=== PATIENT | female | born 1935 | race Caucasian/White ===

== ENCOUNTER 2016-12-13 19:18 | Inpatient (IN) | payer MEDICARE, MEDICAID ==
[2016-12-13] MEDS ORDERED: HEPARIN SOD (PORCINE) 1,000 UNIT/ML 10 ML VIAL IV PRN (19:50)
[2016-12-13] MEDS ORDERED: ACETAMINOPHEN 325 MG TABLET PO PRN ×2 (20:20→20:32)
[2016-12-13 20:26] LABS: HEMATOCRIT 31.2 % (36.0-47.0); HEMOGLOBIN 10.8 g/dL (12.0-15.5); HGB HCT DIFFERENCE 1.2; MEAN CORPUSCULAR HEMOGLOBIN 31.9 pg (27.0-33.4); MEAN CORPUSCULAR HGB CONC 34.5 g/dL (32.0-36.0); MEAN CORPUSCULAR VOLUME 93 fl (80-97); RED BLOOD COUNT 3.37 10^6/uL (3.72-5.28); RED CELL DISTRIBUTION WIDTH 15.9 % (11.5-14.0); WHITE BLOOD COUNT 4.5 10^3/uL (4.0-10.5)
[2016-12-13 20:38] LABS: PROTHROMBIN TIME 13.9 SEC (11.4-15.4)
[2016-12-13 20:39] LABS: PARTIAL THROMBOPLASTIN TIME 30.8 SEC (23.5-35.8)
[2016-12-13 20:46] LABS: ALANINE AMINOTRANSFERASE 28 U/L (9-52); ALBUMIN 3.6 g/dL (3.5-5.0); ALKALINE PHOSPHATASE 192 U/L (38-126); ANION GAP 16 (5-19); ASPARTATE AMINO TRANSFERASE 21 U/L (14-36); BILIRUBIN,TOTAL 0.4 mg/dL (0.2-1.3); BLOOD UREA NITROGEN 63 mg/dL (7-20); CALCIUM 8.9 mg/dL (8.4-10.2); CARBON DIOXIDE 23 mmol/L (22-30); CHLORIDE 98 mmol/L (98-107); CREATININE RESULT 3.86 mg/dL (0.52-1.25); GLUCOSE 196 mg/dL (75-110); SODIUM 136.6 mmol/L (137-145); TOTAL PROTEIN 6.2 g/dL (6.3-8.2)
[2016-12-13] MEDS: HEPARIN SODIUM,PORCINE/D5W 25,000 UNIT/250 ML RTUINJ IV PRN (21:02)
[2016-12-13] MEDS ORDERED: (PENDING PHARMACY ID) (Donepezil Hcl [Aricept] 10 MG) PO SCH (22:00)
[2016-12-13] MEDS ORDERED: (PENDING PHARMACY ID) (Melatonin [Melatin] 3 MG) PO SCH (22:00)
[2016-12-13] MEDS: MEMANTINE HCL 10 MG TABLET PO SCH (23:00)
[2016-12-13] MEDS: CLONIDINE HCL 0.1 MG TABLET PO SCH (23:01)
[2016-12-13] MEDS: DONEPEZIL HCL 5 MG TABLET PO SCH (23:01)
[2016-12-13] MEDS: ZOLPIDEM TARTRATE 5 MG TABLET PO SCH (23:02)
[2016-12-13] MEDS: QUETIAPINE FUMARATE 25 MG TABLET PO SCH (23:03)
[2016-12-14 03:17] LABS: ABSOLUTE EOSINOPHILS # (AUTO) 0.1 10^3/uL (0.0-0.6); ABSOLUTE LYMPHOCYTES (AUTO) 1.8 10^3/uL (0.5-4.7); ABSOLUTE MONOCYTES (AUTO) 0.4 10^3/uL (0.1-1.4); ABSOLUTE NEUT (AUTO) 2.3 10^3/uL (1.7-8.2); BASOPHILS % (AUTO) 0.6 % (0-2); EOSINOPHILS % (AUTO) 2.8 % (0-6); HEMATOCRIT 30.3 % (36.0-47.0); HEMOGLOBIN 10.4 g/dL (12.0-15.5); HGB HCT DIFFERENCE 0.9; LYMPHOCYTES % (AUTO) 38.6 % (13-45); MEAN CORPUSCULAR HEMOGLOBIN 32.2 pg (27.0-33.4); MEAN CORPUSCULAR HGB CONC 34.4 g/dL (32.0-36.0); MEAN CORPUSCULAR VOLUME 93 fl (80-97); MONOCYTES % (AUTO) 8.1 % (3-13); RED BLOOD COUNT 3.24 10^6/uL (3.72-5.28); RED CELL DISTRIBUTION WIDTH 15.8 % (11.5-14.0); SEGMENTED NEUTROPHILS % (AUTO) 49.9 % (42-78); WHITE BLOOD COUNT 4.7 10^3/uL (4.0-10.5)
[2016-12-14 03:31] LABS: ANION GAP 13 (5-19); BLOOD UREA NITROGEN 65 mg/dL (7-20); CALCIUM 8.8 mg/dL (8.4-10.2); CARBON DIOXIDE 23 mmol/L (22-30); CHLORIDE 101 mmol/L (98-107); CREATININE RESULT 3.75 mg/dL (0.52-1.25); GLUCOSE 113 mg/dL (75-110); POTASSIUM 3.9 mmol/L (3.6-5.0); SODIUM 136.7 mmol/L (137-145)
[2016-12-14] MEDS ORDERED: LORATADINE 10 MG TABLET PO PRN (05:54)
[2016-12-14] MEDS ORDERED: DEXTROSE 40% GEL 15 GM TUBE PO PRN (06:02)
[2016-12-14] MEDS ORDERED: DEXTROSE 50%-WATER SYRINGE 12.5 GM/25 ML DOSE IV PRN (06:02)
[2016-12-14] MEDS ORDERED: DEXTROSE 50%-WATER SYRINGE 25 GM/50 ML DOSE IV PRN (06:02)
[2016-12-14] MEDS ORDERED: DEXTROSE 40% GEL 15 GM TUBE X 2 PO PRN (06:02)
[2016-12-14] MEDS ORDERED: GLUCAGON,HUMAN RECOMB 1 MG INJ IM PRN (06:02)
[2016-12-14] MEDS ORDERED: INSULIN LISPRO 100 UNIT/ML 3 ML VIAL SUBCUT PRN (06:02)
[2016-12-14] MEDS ORDERED: INSULIN REG, HUMAN 100 UNIT/ML 3 ML VIAL (PYX) SUBCUT PRN (06:04)
[2016-12-14] MEDS ORDERED: ONDANSETRON 4 MG TAB.RAPDIS PO PRN (06:36)
[2016-12-14] MEDS ORDERED: NITROGLYCERIN 0.4 MG/TAB 25 TAB/BOTTLE SL PRN (06:36)
[2016-12-14] MEDS: CLONIDINE HCL 0.1 MG TABLET PO SCH ×3 (06:43→21:50)
[2016-12-14] MEDS ORDERED: (PENDING PHARMACY ID) (Sevelamer Carbonate [Renvela] 1,600 MG) PO SCH (08:00)
[2016-12-14] MEDS ORDERED: INSULIN GLARGINE,HUM.REC.ANLOG 300 UNIT/3 ML INSULN.PEN SUBCUT SCH (10:00)
[2016-12-14] MEDS ORDERED: (PENDING PHARMACY ID) (Ropinirole Hcl [Requip] 0.5 MG) PO SCH (10:00)
[2016-12-14] MEDS: DOCUSATE SODIUM 100 MG CAPSULE PO SCH (12:12)
[2016-12-14] MEDS: MEMANTINE HCL 10 MG TABLET PO SCH ×2 (12:12→21:46)
[2016-12-14] MEDS: ROPINIROLE HCL 0.25 MG TABLET PO SCH (12:13)
[2016-12-14] MEDS: DULOXETINE HCL 30 MG CAPSULE.DR PO SCH (12:13)
[2016-12-14] MEDS: AMLODIPINE BESYLATE 5 MG TABLET PO SCH ×2 (12:13→21:46)
[2016-12-14] MEDS: ASPIRIN 81 MG TABLET, CHEWABLE PO SCH (12:13)
[2016-12-14] MEDS: CINACALCET HCL 30 MG TABLET PO SCH (12:13)
[2016-12-14] MEDS: SEVELAMER HCL 400 MG TABLET PO SCH ×3 (12:14→17:00)
[2016-12-14] MEDS: INSULIN GLARGINE,HUM.REC.ANLOG 300 UNIT/3 ML INSULN.PEN SUBCUT SCH (12:14)
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
--- NOTE | 2016-12-14 20:42 | PDOC PROGRESS REPORT ---
Subjective Progress Note for:: 12/14/16 Subjective:: Patient was admitted for deep vein thrombosis of the left lower extremities, she had hemodialysis today Physical Exam Vital Signs: Temp Pulse Resp BP Pulse Ox 97.4 F 69 16 144/61 H 98 12/14/16 12:00 12/14/16 14:00 12/14/16 12:00 12/14/16 12:00 12/14/16 12:00 Intake & Output 12/13/16 12/14/16 12/15/16 06:59 06:59 06:59 Intake Total 202 685 Balance 202 685 Weight 62.8 kg General appearance: PRESENT: no acute distress, well-developed, well-nourished Head exam: PRESENT: atraumatic, normocephalic Eye exam: PRESENT: conjunctiva pink, EOMI, PERRLA Ear exam: PRESENT: normal external ear exam Mouth exam: PRESENT: moist, tongue midline Neck exam: PRESENT: full ROM Respiratory exam: PRESENT: clear to auscultation korina Cardiovascular exam: PRESENT: RRR, +S1, +S2 Pulses: PRESENT: normal dorsalis pedis pul, +2 pedal pulses bilateral Vascular exam: PRESENT: normal capillary refill GI/Abdominal exam: PRESENT: normal bowel sounds, soft Rectal exam: PRESENT: deferred Neurological exam: PRESENT: alert, awake, oriented to person, oriented to place , oriented to time, oriented to situation, CN II-XII grossly intact Psychiatric exam: PRESENT: appropriate affect, normal mood Skin exam: PRESENT: dry, intact, warm Results Laboratory Results: 12/14/16 03:09 12/14/16 03:09 12/13/16 12/14/16 12/14/16 20:12 03:09 03:09 WBC 4.7 RBC 3.24 L Hgb 10.4 L Hct 30.3 L MCV 93 MCH 32.2 MCHC 34.4 RDW 15.8 H Plt Count 134 L Seg Neutrophils % 49.9 Lymphocytes % 38.6 Monocytes % 8.1 Eosinophils % 2.8 Basophils % 0.6 Absolute Neutrophils 2.3 Absolute Lymphocytes 1.8 Absolute Monocytes 0.4 Absolute Eosinophils 0.1 Absolute Basophils 0.0 Sodium 136.6 L 136.7 L Potassium 4.0 3.9 Chloride 98 101 Carbon Dioxide 23 23 Anion Gap 16 13 BUN 63 H 65 H Creatinine 3.86 H 3.75 H Est GFR ( Amer) 14 L 14 L Est GFR (Non-Af Amer) 11 L 12 L Glucose 196 H 113 H Calcium 8.9 8.8 Total Bilirubin 0.4 AST 21 ALT 28 Alkaline Phosphatase 192 H Total Protein 6.2 L Albumin 3.6 Assessment & Plan - Diagnosis (1) Acute deep vein thrombosis (DVT) of left femoral vein Is this a current diagnosis for this admission?: YesPlan: She will be started on warfarin on the heparin will be discontinued once the INR is therapeutic (2) Acute deep vein thrombosis (DVT) of left lower extremity Qualifiers: Affected thrombotic vein of extremity: femoral Qualified Code(s): I82.412 - Acute embolism and thrombosis of left femoral vein Is this a current diagnosis for this admission?: Yes (3) Diabetes mellitus type II, controlled Qualifiers: Diabetes mellitus complication status: with kidney complications Diabetes mellitus complication detail: with chronic kidney disease Diabetes mellitus intermediate insulin use: without communication specialist use Chronic kidney disease stage: on chronic dialysis Qualified Code(s): E11.22 - Type 2 diabetes mellitus with diabetic chronic kidney disease; N18.1 - Chronic kidney disease, stage 1; Z79.4 - [facility] (current) use of insulin Is this a current diagnosis for this admission?: Yes (4) End stage renal disease Is this a current diagnosis for this admission?: Yes
[2016-12-14 21:21] LABS: PROTHROMBIN TIME 13.9 SEC (11.4-15.4)
[2016-12-14] MEDS: QUETIAPINE FUMARATE 25 MG TABLET PO SCH (21:46)
[2016-12-14] MEDS: DONEPEZIL HCL 5 MG TABLET PO SCH (21:46)
[2016-12-14] MEDS: ACETAMINOPHEN 325 MG TABLET PO PRN (21:47)
[2016-12-14] MEDS: ZOLPIDEM TARTRATE 5 MG TABLET PO SCH (21:47)
[2016-12-14] MEDS: WARFARIN SODIUM 5 MG TABLET PO SCH (21:50)
[2016-12-14] MEDS: HEPARIN SODIUM,PORCINE/D5W 25,000 UNIT/250 ML RTUINJ IV PRN (23:43)
[2016-12-15 04:49] LABS: HEMATOCRIT 30.8 % (36.0-47.0); HEMOGLOBIN 10.7 g/dL (12.0-15.5); HGB HCT DIFFERENCE 1.3; MEAN CORPUSCULAR HEMOGLOBIN 32.2 pg (27.0-33.4); MEAN CORPUSCULAR HGB CONC 34.8 g/dL (32.0-36.0); MEAN CORPUSCULAR VOLUME 93 fl (80-97); RED BLOOD COUNT 3.33 10^6/uL (3.72-5.28); RED CELL DISTRIBUTION WIDTH 15.7 % (11.5-14.0); WHITE BLOOD COUNT 5.1 10^3/uL (4.0-10.5)
[2016-12-15 05:03] LABS: PROTHROMBIN TIME 14.4 SEC (11.4-15.4)
[2016-12-15 05:05] LABS: PARTIAL THROMBOPLASTIN TIME 71.8 SEC (23.5-35.8)
[2016-12-15] MEDS: CLONIDINE HCL 0.1 MG TABLET PO SCH ×3 (06:28→22:54)
[2016-12-15] MEDS: AMLODIPINE BESYLATE 5 MG TABLET PO SCH ×2 (09:25→22:54)
[2016-12-15] MEDS: CINACALCET HCL 30 MG TABLET PO SCH (09:25)
[2016-12-15] MEDS: ASPIRIN 81 MG TABLET, CHEWABLE PO SCH (09:26)
[2016-12-15] MEDS: DOCUSATE SODIUM 100 MG CAPSULE PO SCH (09:26)
[2016-12-15] MEDS: SEVELAMER HCL 400 MG TABLET PO SCH ×3 (09:26→16:33)
[2016-12-15] MEDS: DULOXETINE HCL 30 MG CAPSULE.DR PO SCH (09:27)
[2016-12-15] MEDS: ROPINIROLE HCL 0.25 MG TABLET PO SCH (09:27)
[2016-12-15] MEDS: MEMANTINE HCL 10 MG TABLET PO SCH ×2 (09:27→22:53)
[2016-12-15] MEDS: INSULIN GLARGINE,HUM.REC.ANLOG 300 UNIT/3 ML INSULN.PEN SUBCUT SCH (09:31)
--- NOTE | 2016-12-15 14:35 | PDOC PROGRESS REPORT ---
Subjective Progress Note for:: 12/15/16 Subjective:: No chest pain or difficulty with breathing. Remain on anticoagulation therapy for DVT. Last hemodialysis was yesterday. She denied any significant pain in left leg. She denied any nausea, vomiting or abdominal pain. Tolerating oral feeding. No reported fever or chills. Physical Exam Vital Signs: Temp Pulse Resp BP Pulse Ox 97.9 F 78 16 153/67 H 98 12/15/16 11:33 12/15/16 13:58 12/15/16 11:33 12/15/16 11:33 12/15/16 11:33 Intake & Output 12/14/16 12/15/16 12/16/16 06:59 06:59 07:59 Intake Total 202 1044 Output Total 1300 Balance 202 -256 Weight 62.8 kg 60.3 kg Physical Exam: General appearance: PRESENT: no acute distress, well-developed, well-nourished Head exam: PRESENT: atraumatic, normocephalic Eye exam: PRESENT: conjunctiva pink, EOMI, PERRLA Ear exam: PRESENT: normal external ear exam Mouth exam: PRESENT: moist, tongue midline Neck exam: PRESENT: full ROM Respiratory exam: PRESENT: clear to auscultation korina Cardiovascular exam: PRESENT: RRR, +S1, +S2 Pulses: PRESENT: normal dorsalis pedis pul, +2 pedal pulses bilateral Vascular exam: PRESENT: normal capillary refill GI/Abdominal exam: PRESENT: normal bowel sounds, soft Neurological exam: PRESENT: alert, awake, oriented to person, oriented to place , oriented to time, oriented to situation, CN II-XII grossly intact Psychiatric exam: PRESENT: appropriate affect, normal mood Skin exam: PRESENT: dry, intact, warm Results Laboratory Results: 12/15/16 04:08 12/14/16 03:09 12/15/16 04:08 WBC 5.1 RBC 3.33 L Hgb 10.7 L Hct 30.8 L MCV 93 MCH 32.2 MCHC 34.8 RDW 15.7 H Plt Count 139 L Assessment & Plan - Diagnosis (1) Acute deep vein thrombosis (DVT) of left lower extremity Qualifiers: Affected thrombotic vein of extremity: femoral Qualified Code(s): I82.412 - Acute embolism and thrombosis of left femoral vein Is this a current diagnosis for this admission?: YesPlan: See covering attending orders. (2) Anemia in chronic kidney disease (CKD) Is this a current diagnosis for this admission?: YesPlan: See covering attending orders. (3) Hypertension Qualifiers: Hypertension type: essential hypertension Qualified Code(s): I10 - Essential (primary) hypertension Is this a current diagnosis for this admission?: YesPlan: See covering attending orders. (4) Diabetes mellitus type II, controlled Qualifiers: Diabetes mellitus complication status: with kidney complications Diabetes mellitus complication detail: with chronic kidney disease Diabetes mellitus senior living insulin use: without marine oil terminal superintendent use Chronic kidney disease stage: on chronic dialysis Qualified Code(s): E11.22 - Type 2 diabetes mellitus with diabetic chronic kidney disease; N18.1 - Chronic kidney disease, stage 1; Z79.4 - laborer marine terminal (current) use of insulin Is this a current diagnosis for this admission?: YesPlan: See covering attending orders. (5) End stage renal disease Is this a current diagnosis for this admission?: YesPlan: See covering attending orders. - Time Time Spent with patient: 25-34 minutes Anticipated discharge: SNF - for possible short term rehabilitation. - Inpatient Certification Based on my medical assessment, after consideration of the patient's comorbidities, presenting symptoms, or acuity I expect that the services needed warrant INPATIENT care.: Yes I certify that my determination is in accordance with my understanding of Medicare's requirements for reasonable and necessary INPATIENT services [42 CFR 412.3e].: Yes Medical Necessity: Need Close Monitoring Due to Risk of Patient Decompensation, Need For Continuous Telemetry Monitoring, Risk of Diagnosis Which Will Require Inpatient Eval/Care/Monitoring Post Hospital Care: D/C or Transfer Summary - Plan Summary Plan Summary: Continue current anticoagulation therapy with intent to discontinue IV heparin when INR is > 2.5. Maintain on all other current medical management.
[2016-12-15] MEDS: ZOLPIDEM TARTRATE 5 MG TABLET PO SCH (22:53)
[2016-12-15] MEDS: WARFARIN SODIUM 5 MG TABLET PO SCH (22:53)
[2016-12-15] MEDS: DONEPEZIL HCL 5 MG TABLET PO SCH (22:53)
[2016-12-15] MEDS: QUETIAPINE FUMARATE 25 MG TABLET PO SCH (22:53)
[2016-12-15] MEDS: HEPARIN SODIUM,PORCINE/D5W 25,000 UNIT/250 ML RTUINJ IV PRN (23:05)
[2016-12-16 05:34] LABS: PARTIAL THROMBOPLASTIN TIME 79.9 SEC (23.5-35.8)
[2016-12-16 05:39] LABS: PROTHROMBIN TIME 14.7 SEC (11.4-15.4)
[2016-12-16] MEDS: CLONIDINE HCL 0.1 MG TABLET PO SCH ×3 (06:16→22:52)
[2016-12-16] MEDS: MEMANTINE HCL 10 MG TABLET PO SCH ×2 (09:40→22:52)
[2016-12-16] MEDS: ROPINIROLE HCL 0.25 MG TABLET PO SCH (09:40)
[2016-12-16] MEDS: SEVELAMER HCL 400 MG TABLET PO SCH ×3 (09:40→17:38)
[2016-12-16] MEDS: AMLODIPINE BESYLATE 5 MG TABLET PO SCH ×2 (09:41→22:52)
[2016-12-16] MEDS: ASPIRIN 81 MG TABLET, CHEWABLE PO SCH (09:41)
[2016-12-16] MEDS: DULOXETINE HCL 30 MG CAPSULE.DR PO SCH (09:41)
[2016-12-16] MEDS: CINACALCET HCL 30 MG TABLET PO SCH (09:41)
[2016-12-16] MEDS: INSULIN GLARGINE,HUM.REC.ANLOG 300 UNIT/3 ML INSULN.PEN SUBCUT SCH (09:44)
[2016-12-16] MEDS: DOCUSATE SODIUM 100 MG CAPSULE PO SCH (09:51)
--- NOTE | 2016-12-16 11:06 | PDOC PROGRESS REPORT ---
Subjective Progress Note for:: 12/16/16 Subjective:: No chest pain or difficulty with breathing. Remain on IV heparin and oral Coumadin bridge anticoagulation therapy for DVT. She denied any significant pain in left leg. INR remain subtherapeutic presently. No abnormal bleeding. She denied any nausea, vomiting or abdominal pain. Tolerating oral feeding. No reported fever or chills. Physical Exam Vital Signs: Temp Pulse Resp BP Pulse Ox 98.0 F 64 18 125/63 99 12/16/16 07:32 12/16/16 07:32 12/16/16 07:32 12/16/16 07:32 12/16/16 07:32 Intake & Output 12/15/16 12/16/16 12/17/16 05:59 06:59 06:59 Intake Total Output Total Balance Weight Physical Exam: General appearance: PRESENT: no acute distress, well-developed, well-nourished Head exam: PRESENT: atraumatic, normocephalic Eye exam: PRESENT: conjunctiva pink, EOMI, PERRLA Ear exam: PRESENT: normal external ear exam Mouth exam: PRESENT: moist, tongue midline Neck exam: PRESENT: full ROM Respiratory exam: PRESENT: clear to auscultation korina Cardiovascular exam: PRESENT: RRR, +S1, +S2 Pulses: PRESENT: normal dorsalis pedis pul, +2 pedal pulses bilateral Vascular exam: PRESENT: normal capillary refill GI/Abdominal exam: PRESENT: normal bowel sounds, soft Neurological exam: PRESENT: alert, awake, oriented to person, oriented to place , oriented to time, oriented to situation, CN II-XII grossly intact Psychiatric exam: PRESENT: appropriate affect, normal mood Skin exam: PRESENT: dry, intact, warm Results Laboratory Results: 12/15/16 04:08 12/14/16 03:09 Assessment & Plan - Diagnosis (1) Acute deep vein thrombosis (DVT) of left lower extremity Qualifiers: Affected thrombotic vein of extremity: femoral Qualified Code(s): I82.412 - Acute embolism and thrombosis of left femoral vein Is this a current diagnosis for this admission?: YesPlan: See covering attending orders. Give Coumadin 10mg tonight. Maintain on other current medication management. (2) Anemia in chronic kidney disease (CKD) Is this a current diagnosis for this admission?: YesPlan: See covering attending physician orders. (3) Hypertension Qualifiers: Hypertension type: essential hypertension Qualified Code(s): I10 - Essential (primary) hypertension Is this a current diagnosis for this admission?: YesPlan: See covering attending physician orders. (4) Diabetes mellitus type II, controlled Qualifiers: Diabetes mellitus complication status: with kidney complications Diabetes mellitus complication detail: with chronic kidney disease Diabetes mellitus skilled nursing insulin use: without termite control service representative use Chronic kidney disease stage: on chronic dialysis Qualified Code(s): E11.22 - Type 2 diabetes mellitus with diabetic chronic kidney disease; N18.1 - Chronic kidney disease, stage 1; Z79.4 - [facility] (current) use of insulin Is this a current diagnosis for this admission?: YesPlan: See covering attending physician orders. (5) End stage renal disease Is this a current diagnosis for this admission?: YesPlan: See covering attending physician orders. - Time Time Spent with patient: 25-34 minutes Medications reviewed and adjusted accordingly: Yes Within: Other - Inpatient Certification Based on my medical assessment, after consideration of the patient's comorbidities, presenting symptoms, or acuity I expect that the services needed warrant INPATIENT care.: Yes I certify that my determination is in accordance with my understanding of Medicare's requirements for reasonable and necessary INPATIENT services [42 CFR 412.3e].: Yes Medical Necessity: Need Close Monitoring Due to Risk of Patient Decompensation, Need For Continuous Telemetry Monitoring, Risk of Complication if Not Cared For in Hospital Post Hospital Care: D/C Hosp[facility] Music Therapy Documentation - Plan Summary Plan Summary: See covering attending physician orders.
[2016-12-16] MEDS: GUAIFENESIN SYRP 200 MG/10 ML UDC PO PRN (19:43)
[2016-12-16] MEDS ORDERED: WARFARIN SODIUM 5 MG TABLET PO ONE (22:00)
[2016-12-16] MEDS: DONEPEZIL HCL 5 MG TABLET PO SCH (22:52)
[2016-12-16] MEDS: ZOLPIDEM TARTRATE 5 MG TABLET PO SCH (22:52)
[2016-12-16] MEDS: WARFARIN SODIUM 5 MG TABLET PO SCH (22:52)
[2016-12-16] MEDS: QUETIAPINE FUMARATE 25 MG TABLET PO SCH (22:52)
[2016-12-17] MEDS: GUAIFENESIN SYRP 200 MG/10 ML UDC PO PRN (04:02)
[2016-12-17] MEDS: HEPARIN SODIUM,PORCINE/D5W 25,000 UNIT/250 ML RTUINJ IV PRN (04:37)
[2016-12-17 05:09] LABS: ABSOLUTE EOSINOPHILS # (AUTO) 0.1 10^3/uL (0.0-0.6); ABSOLUTE LYMPHOCYTES (AUTO) 0.8 10^3/uL (0.5-4.7); ABSOLUTE MONOCYTES (AUTO) 0.4 10^3/uL (0.1-1.4); ABSOLUTE NEUT (AUTO) 3.1 10^3/uL (1.7-8.2); BASOPHILS % (AUTO) 0.5 % (0-2); EOSINOPHILS % (AUTO) 2.1 % (0-6); HEMATOCRIT 36.2 % (36.0-47.0); HEMOGLOBIN 12.2 g/dL (12.0-15.5); HGB HCT DIFFERENCE 0.4; MEAN CORPUSCULAR HEMOGLOBIN 31.3 pg (27.0-33.4); MEAN CORPUSCULAR HGB CONC 33.5 g/dL (32.0-36.0); MEAN CORPUSCULAR VOLUME 93 fl (80-97); MONOCYTES % (AUTO) 9.6 % (3-13); PARTIAL THROMBOPLASTIN TIME 82.5 SEC (23.5-35.8); RED BLOOD COUNT 3.89 10^6/uL (3.72-5.28); SEGMENTED NEUTROPHILS % (AUTO) 70.8 % (42-78); WHITE BLOOD COUNT 4.4 10^3/uL (4.0-10.5)
[2016-12-17 05:22] LABS: ANION GAP 15 (5-19); BLOOD UREA NITROGEN 69 mg/dL (7-20); CALCIUM 9.2 mg/dL (8.4-10.2); CARBON DIOXIDE 20 mmol/L (22-30); CHLORIDE 102 mmol/L (98-107); CREATININE RESULT 4.67 mg/dL (0.52-1.25); GLUCOSE 102 mg/dL (75-110); POTASSIUM 5.2 mmol/L (3.6-5.0); SODIUM 137.4 mmol/L (137-145)
[2016-12-17] MEDS: CLONIDINE HCL 0.1 MG TABLET PO SCH ×3 (06:12→21:48)
[2016-12-17] MEDS: SEVELAMER HCL 400 MG TABLET PO SCH ×3 (07:48→16:57)
[2016-12-17] MEDS: MEMANTINE HCL 10 MG TABLET PO SCH ×2 (12:18→21:48)
[2016-12-17] MEDS: CINACALCET HCL 30 MG TABLET PO SCH (12:18)
[2016-12-17] MEDS: ROPINIROLE HCL 0.25 MG TABLET PO SCH (12:18)
[2016-12-17] MEDS: DOCUSATE SODIUM 100 MG CAPSULE PO SCH (12:18)
[2016-12-17] MEDS: ASPIRIN 81 MG TABLET, CHEWABLE PO SCH (12:18)
[2016-12-17] MEDS: INSULIN GLARGINE,HUM.REC.ANLOG 300 UNIT/3 ML INSULN.PEN SUBCUT SCH (12:18)
[2016-12-17] MEDS: AMLODIPINE BESYLATE 5 MG TABLET PO SCH ×2 (12:18→21:48)
[2016-12-17] MEDS: DULOXETINE HCL 30 MG CAPSULE.DR PO SCH (12:18)
--- NOTE | 2016-12-17 12:59 | PDOC PROGRESS REPORT ---
Subjective Progress Note for:: 12/17/16 Subjective:: I saw the patient on dialysis at this time. She is doing well and comfortable. She does not complain of any any issues. Her leg swelling is almost resolved. She is is still on heparin drip awaiting therapeutic PT/INR for the Coumadin. Physical Exam Vital Signs: Temp Pulse Resp BP Pulse Ox 98.1 F 75 16 137/55 H 97 12/17/16 11:15 12/17/16 11:15 12/17/16 11:15 12/17/16 11:15 12/17/16 11:15 Intake & Output 12/16/16 12/17/16 12/18/16 06:59 06:59 06:59 Intake Total 1574 Balance 1574 Weight 66.8 kg Vitals during dialysis: Blood pressure 142/72, heart rate of 83, blood flow 400 , on systemic heparin, temperature 98.4 and ultrafiltration set to 2-3 L. Exam: General appearance: PRESENT: no acute distress, cooperative, well-developed, well-nourished Head exam: PRESENT: atraumatic, normocephalic Eye exam: PRESENT: conjunctiva pink, PERRLA. ABSENT: scleral icterus Neck exam: ABSENT: JVD Respiratory exam: PRESENT: Normal breath sounds. ABSENT: crackles, rales, rhonchi, unlabored, wheezes Cardiovascular exam: PRESENT: Regular rate rhythm -+S1, +S2. Grade 3/6 systolic ejection murmur ABSENT: diastolic murmur GI/Abdominal exam: PRESENT: normal bowel sounds, soft. ABSENT: guarding, mass, tenderness Extremities exam: ABSENT: No edema Neurological exam: PRESENT: alert, awake, oriented to person, place and time. Skin exam: PRESENT: dry, warm, Results Laboratory Results: 12/17/16 04:20 12/17/16 04:20 12/17/16 12/17/16 04:20 04:20 WBC 4.4 RBC 3.89 Hgb 12.2 Hct 36.2 MCV 93 MCH 31.3 MCHC 33.5 RDW 16.0 H Plt Count 118 L Seg Neutrophils % 70.8 Lymphocytes % 17.0 Monocytes % 9.6 Eosinophils % 2.1 Basophils % 0.5 Absolute Neutrophils 3.1 Absolute Lymphocytes 0.8 Absolute Monocytes 0.4 Absolute Eosinophils 0.1 Absolute Basophils 0.0 Sodium 137.4 Potassium 5.2 H Chloride 102 Carbon Dioxide 20 L Anion Gap 15 BUN 69 H Creatinine 4.67 H Est GFR ( Amer) 11 L Est GFR (Non-Af Amer) 9 L Glucose 102 Calcium 9.2 Assessment & Plan - Diagnosis (1) End stage renal disease Is this a current diagnosis for this admission?: YesPlan: We will do dialysis today for 3 hours, using the patient's AV fistula, with 2 potassium bath, blood flow rate of 250 mL per minute, dialysate flow rate of 500 mL per minute, ultrafiltration 2-3 L as tolerated, on systemic heparin and no Procrit during dialysis. Patient will be monitored throughout the dialysis treatment. (2) Acute deep vein thrombosis (DVT) Qualifiers: DVT location: lower extremity Affected thrombotic vein of extremity: femoral Laterality: left Qualified Code(s): I82.412 - Acute embolism and thrombosis of left femoral vein Is this a current diagnosis for this admission?: YesPlan: On heparin drip awaiting the repeat a PT/INR for Coumadin. Being managed by the primary provider. (3) Anemia in chronic kidney disease (CKD) Is this a current diagnosis for this admission?: YesPlan: Well controlled. No need of Procrit at this time. (4) Hypertension Qualifiers: Hypertension type: essential hypertension Qualified Code(s): I10 - Essential (primary) hypertension Is this a current diagnosis for this admission?: YesPlan: Fairly controlled. Clinical okay - Time Time with patient: 15-25 minutes
--- NOTE | 2016-12-17 18:32 | PDOC PROGRESS REPORT ---
Subjective Progress Note for:: 12/17/16 Subjective:: She had hemodialysis today, the INR is subtherapeutic, still on continuous IV heparin Physical Exam Vital Signs: Temp Pulse Resp BP Pulse Ox 98.1 F 85 16 137/55 H 97 12/17/16 11:15 12/17/16 14:00 12/17/16 11:15 12/17/16 11:15 12/17/16 11:15 Intake & Output 12/16/16 12/17/16 12/18/16 06:59 06:59 06:59 Intake Total 1574 343 Output Total 1999 Balance 1574 -1657 Weight 66.8 kg General appearance: PRESENT: no acute distress Head exam: PRESENT: atraumatic, normocephalic Eye exam: PRESENT: conjunctiva pink, EOMI, PERRLA Neck exam: PRESENT: full ROM Cardiovascular exam: PRESENT: RRR, +S1, +S2 GI/Abdominal exam: PRESENT: normal bowel sounds, soft Rectal exam: PRESENT: deferred Neurological exam: PRESENT: alert, awake, oriented to person, oriented to place , oriented to time, oriented to situation, CN II-XII grossly intact Psychiatric exam: PRESENT: appropriate affect, normal mood Skin exam: PRESENT: dry, intact, warm Results Laboratory Results: 12/17/16 04:20 12/17/16 04:20 12/17/16 12/17/16 04:20 04:20 WBC 4.4 RBC 3.89 Hgb 12.2 Hct 36.2 MCV 93 MCH 31.3 MCHC 33.5 RDW 16.0 H Plt Count 118 L Seg Neutrophils % 70.8 Lymphocytes % 17.0 Monocytes % 9.6 Eosinophils % 2.1 Basophils % 0.5 Absolute Neutrophils 3.1 Absolute Lymphocytes 0.8 Absolute Monocytes 0.4 Absolute Eosinophils 0.1 Absolute Basophils 0.0 Sodium 137.4 Potassium 5.2 H Chloride 102 Carbon Dioxide 20 L Anion Gap 15 BUN 69 H Creatinine 4.67 H Est GFR ( Amer) 11 L Est GFR (Non-Af Amer) 9 L Glucose 102 Calcium 9.2 Assessment & Plan - Diagnosis (1) Acute deep vein thrombosis (DVT) of left femoral vein Is this a current diagnosis for this admission?: YesPlan: Continue treatment (2) Acute deep vein thrombosis (DVT) of left lower extremity Qualifiers: Affected thrombotic vein of extremity: femoral Qualified Code(s): I82.412 - Acute embolism and thrombosis of left femoral vein Is this a current diagnosis for this admission?: Yes (3) Diabetes mellitus type II, controlled Qualifiers: Diabetes mellitus complication status: with kidney complications Diabetes mellitus complication detail: with chronic kidney disease Diabetes mellitus longterm insulin use: without terminal worker use Chronic kidney disease stage: on chronic dialysis Qualified Code(s): E11.22 - Type 2 diabetes mellitus with diabetic chronic kidney disease; N18.1 - Chronic kidney disease, stage 1; Z79.4 - terminal computer operator (current) use of insulin Is this a current diagnosis for this admission?: Yes (4) End stage renal disease Is this a current diagnosis for this admission?: Yes
[2016-12-17 19:36] LABS: HEPATITIS C QUANTITATION HCV Not Detected IU/mL (.)
[2016-12-17] MEDS: DONEPEZIL HCL 5 MG TABLET PO SCH (21:48)
[2016-12-17] MEDS: WARFARIN SODIUM 5 MG TABLET PO SCH (21:49)
[2016-12-17] MEDS: ZOLPIDEM TARTRATE 5 MG TABLET PO SCH (21:49)
[2016-12-17] MEDS: QUETIAPINE FUMARATE 25 MG TABLET PO SCH (21:49)
[2016-12-18] MEDS: HEPARIN SODIUM,PORCINE/D5W 25,000 UNIT/250 ML RTUINJ IV PRN (03:59)
[2016-12-18 04:24] LABS: PROTHROMBIN TIME 20.8 SEC (11.4-15.4)
[2016-12-18] MEDS: CLONIDINE HCL 0.1 MG TABLET PO SCH ×3 (05:21→21:22)
[2016-12-18] MEDS: SEVELAMER HCL 400 MG TABLET PO SCH ×3 (08:11→17:39)
[2016-12-18] MEDS: GUAIFENESIN SYRP 200 MG/10 ML UDC PO PRN (08:14)
[2016-12-18] MEDS: ROPINIROLE HCL 0.25 MG TABLET PO SCH (09:56)
[2016-12-18] MEDS: DOCUSATE SODIUM 100 MG CAPSULE PO SCH (09:56)
[2016-12-18] MEDS: CINACALCET HCL 30 MG TABLET PO SCH (09:56)
[2016-12-18] MEDS: INSULIN GLARGINE,HUM.REC.ANLOG 300 UNIT/3 ML INSULN.PEN SUBCUT SCH (09:56)
[2016-12-18] MEDS: ASPIRIN 81 MG TABLET, CHEWABLE PO SCH (09:56)
[2016-12-18] MEDS: AMLODIPINE BESYLATE 5 MG TABLET PO SCH ×2 (09:57→21:22)
[2016-12-18] MEDS: MEMANTINE HCL 10 MG TABLET PO SCH ×2 (09:57→21:22)
[2016-12-18] MEDS: DULOXETINE HCL 30 MG CAPSULE.DR PO SCH (09:57)
--- NOTE | 2016-12-18 19:51 | PDOC PROGRESS REPORT ---
Subjective Progress Note for:: 12/25/16 Subjective:: The INR is still subtherapeutic, patient will continue IV heparin infusion Physical Exam Vital Signs: Temp Pulse Resp BP Pulse Ox 98.1 F 78 16 142/74 H 97 12/18/16 15:46 12/18/16 15:46 12/18/16 15:46 12/18/16 15:46 12/18/16 15:46 Intake & Output 12/17/16 12/18/16 12/19/16 06:59 06:59 06:59 Intake Total 1574 687 672 Output Total 1999 Balance 1574 -1312 672 Weight 66.8 kg 65 kg General appearance: PRESENT: no acute distress Eye exam: PRESENT: PERRLA Respiratory exam: PRESENT: clear to auscultation korina Cardiovascular exam: PRESENT: +S1, +S2 GI/Abdominal exam: PRESENT: soft Neurological exam: PRESENT: alert Results Laboratory Results: 12/17/16 04:20 12/17/16 04:20 12/18/16 04:10 Stool Occult Blood NEGATIVE Assessment & Plan - Diagnosis (1) Acute deep vein thrombosis (DVT) of left femoral vein Is this a current diagnosis for this admission?: Yes (2) Acute deep vein thrombosis (DVT) of left lower extremity Qualifiers: Affected thrombotic vein of extremity: femoral Qualified Code(s): I82.412 - Acute embolism and thrombosis of left femoral vein Is this a current diagnosis for this admission?: Yes (3) Diabetes mellitus type II, controlled Qualifiers: Diabetes mellitus complication status: with kidney complications Diabetes mellitus complication detail: with chronic kidney disease Diabetes mellitus intermediate manager insulin use: without fci use Chronic kidney disease stage: on chronic dialysis Qualified Code(s): E11.22 - Type 2 diabetes mellitus with diabetic chronic kidney disease; N18.1 - Chronic kidney disease, stage 1; Z79.4 - [facility] (current) use of insulin Is this a current diagnosis for this admission?: Yes (4) End stage renal disease Is this a current diagnosis for this admission?: Yes
[2016-12-18] MEDS: DONEPEZIL HCL 5 MG TABLET PO SCH (21:22)
[2016-12-18] MEDS: ZOLPIDEM TARTRATE 5 MG TABLET PO SCH (21:23)
[2016-12-18] MEDS: WARFARIN SODIUM 5 MG TABLET PO SCH (21:23)
[2016-12-18] MEDS: QUETIAPINE FUMARATE 25 MG TABLET PO SCH (21:23)
[2016-12-19] MEDS: HEPARIN SODIUM,PORCINE/D5W 25,000 UNIT/250 ML RTUINJ IV PRN (03:33)
[2016-12-19] MEDS: CLONIDINE HCL 0.1 MG TABLET PO SCH ×3 (05:59→21:34)
[2016-12-19 06:43] LABS: ABSOLUTE EOSINOPHILS # (AUTO) 0.1 10^3/uL (0.0-0.6); ABSOLUTE LYMPHOCYTES (AUTO) 0.9 10^3/uL (0.5-4.7); ABSOLUTE MONOCYTES (AUTO) 0.4 10^3/uL (0.1-1.4); ABSOLUTE NEUT (AUTO) 2.2 10^3/uL (1.7-8.2); BASOPHILS % (AUTO) 0.4 % (0-2); EOSINOPHILS % (AUTO) 3.4 % (0-6); HEMATOCRIT 29.9 % (36.0-47.0); HEMOGLOBIN 10.4 g/dL (12.0-15.5); HGB HCT DIFFERENCE 1.3; LYMPHOCYTES % (AUTO) 25.5 % (13-45); MEAN CORPUSCULAR HEMOGLOBIN 32.1 pg (27.0-33.4); MEAN CORPUSCULAR HGB CONC 34.8 g/dL (32.0-36.0); MEAN CORPUSCULAR VOLUME 92 fl (80-97); MONOCYTES % (AUTO) 10.7 % (3-13); RED BLOOD COUNT 3.25 10^6/uL (3.72-5.28); RED CELL DISTRIBUTION WIDTH 15.6 % (11.5-14.0); WHITE BLOOD COUNT 3.6 10^3/uL (4.0-10.5)
[2016-12-19 06:53] LABS: ANION GAP 12 (5-19); BLOOD UREA NITROGEN 63 mg/dL (7-20); CALCIUM 8.6 mg/dL (8.4-10.2); CARBON DIOXIDE 22 mmol/L (22-30); CHLORIDE 102 mmol/L (98-107); CREATININE RESULT 5.02 mg/dL (0.52-1.25); GLUCOSE 102 mg/dL (75-110); POTASSIUM 4.7 mmol/L (3.6-5.0)
[2016-12-19 07:47] LABS: PROTHROMBIN TIME 24.4 SEC (11.4-15.4)
[2016-12-19 07:48] LABS: PARTIAL THROMBOPLASTIN TIME 62.2 SEC (23.5-35.8)
[2016-12-19] MEDS: SEVELAMER HCL 400 MG TABLET PO SCH ×2 (08:00→18:39)
--- NOTE | 2016-12-19 14:58 | PDOC PROGRESS REPORT ---
Subjective Progress Note for:: 12/19/16 Subjective:: Patient is seen on dialysis this afternoon. She remains to be stable. She does not have any complaints. We were able to cannulate her AV fistula with a bigger needle, gauge 16 and is currently running with a better blood flow compared to her usual as an outpatient. She is still on heparin drip at this point. Physical Exam Vital Signs: Temp Pulse Resp BP Pulse Ox 98.4 F 67 18 142/54 H 97 12/19/16 11:29 12/19/16 11:29 12/19/16 11:29 12/19/16 11:29 12/19/16 11:29 Intake & Output 12/18/16 12/19/16 12/20/16 06:59 06:59 06:59 Intake Total 687 1113 Output Total 2000 Balance -1313 1113 Weight 65 kg 65 kg Vitals during dialysis: Blood pressure 148/67, heart rate of 73, blood flow rate of 300 mL per minute, dialysate flow rate of 500 mL per minute. Exam: General appearance: PRESENT: no acute distress, cooperative, well-developed, well-nourished Head exam: PRESENT: atraumatic, normocephalic Eye exam: PRESENT: conjunctiva pink, PERRLA. ABSENT: scleral icterus Neck exam: ABSENT: JVD Respiratory exam: PRESENT: Diminished breath sounds. ABSENT: crackles, rales, rhonchi, unlabored, wheezes Cardiovascular exam: PRESENT: Regular rate rhythm -+S1, +S2. Grade 3/6 systolic ejection murmur ABSENT: diastolic murmur GI/Abdominal exam: PRESENT: normal bowel sounds, soft. ABSENT: guarding, mass, tenderness Extremities exam: ABSENT: No edema Neurological exam: PRESENT: alert, awake, oriented to person, place and time. Skin exam: PRESENT: dry, warm, Results Laboratory Results: 12/19/16 05:40 12/19/16 05:40 12/19/16 12/19/16 05:40 05:40 WBC 3.6 L RBC 3.25 L Hgb 10.4 L Hct 29.9 L MCV 92 MCH 32.1 MCHC 34.8 RDW 15.6 H Plt Count 105 L Seg Neutrophils % 60.0 Lymphocytes % 25.5 Monocytes % 10.7 Eosinophils % 3.4 Basophils % 0.4 Absolute Neutrophils 2.2 Absolute Lymphocytes 0.9 Absolute Monocytes 0.4 Absolute Eosinophils 0.1 Absolute Basophils 0.0 Sodium 136.0 L Potassium 4.7 Chloride 102 Carbon Dioxide 22 Anion Gap 12 BUN 63 H Creatinine 5.02 H Est GFR ( Amer) 10 L Est GFR (Non-Af Amer) 8 L Glucose 102 Calcium 8.6 Assessment & Plan - Diagnosis (1) End stage renal disease Is this a current diagnosis for this admission?: YesPlan: We will do dialysis today for 3 hours, using the patient's AV fistula, with 2 potassium bath, blood flow rate of 300 mL per minute, dialysate flow rate of 500 mL per minute, ultrafiltration 1 L, no heparin and no Procrit during dialysis. Monitor the patient during dialysis. Once discharged we will change her ordered to use gait 16 needles and to increase blood flow to at least 300 mL per minute at [facility]. (2) Acute deep vein thrombosis (DVT) Qualifiers: DVT location: lower extremity Affected thrombotic vein of extremity: femoral Laterality: left Qualified Code(s): I82.412 - Acute embolism and thrombosis of left femoral vein Is this a current diagnosis for this admission?: YesPlan: Patient has therapeutic PT and INR today. Probably will need to stop her heparin drip sometime tonight. She is on warfarin. (3) Anemia in chronic kidney disease (CKD) Is this a current diagnosis for this admission?: YesPlan: Well controlled. No need of Procrit at this time. (4) Hypertension Qualifiers: Hypertension type: essential hypertension Qualified Code(s): I10 - Essential (primary) hypertension Is this a current diagnosis for this admission?: YesPlan: Fairly controlled. Clinical okay - Notes Notes: Since the patient is therapeutic PT/INR and quite stable, I think she can be discharged home either tonight or tomorrow. From nephrology standpoint she can go home. Her next dialysis if discharged any time tonight or tomorrow will be on Saturday and her regular scheduled time at [facility] - Time Time with patient: 15-25 minutes
--- NOTE | 2016-12-19 17:09 | PDOC PROGRESS REPORT ---
Subjective Progress Note for:: 12/19/16 Subjective:: She was seen by the bedside, the INR is therapeutic at this point the IV heparin will be discontinued. She had dialysis today Physical Exam Vital Signs: Temp Pulse Resp BP Pulse Ox 98.4 F 67 18 142/54 H 97 12/19/16 11:29 12/19/16 11:29 12/19/16 11:29 12/19/16 11:29 12/19/16 11:29 Intake & Output 12/18/16 12/19/16 12/20/16 06:59 06:59 06:59 Intake Total 687 1113 Output Total 1999 Balance -1313 1113 Weight 65 kg 65 kg General appearance: PRESENT: no acute distress Eye exam: PRESENT: PERRLA Respiratory exam: PRESENT: clear to auscultation korina Cardiovascular exam: PRESENT: +S1, +S2 GI/Abdominal exam: PRESENT: soft Neurological exam: PRESENT: alert Results Laboratory Results: 12/19/16 05:40 12/19/16 05:40 12/19/16 12/19/16 05:40 05:40 WBC 3.6 L RBC 3.25 L Hgb 10.4 L Hct 29.9 L MCV 92 MCH 32.1 MCHC 34.8 RDW 15.6 H Plt Count 105 L Seg Neutrophils % 60.0 Lymphocytes % 25.5 Monocytes % 10.7 Eosinophils % 3.4 Basophils % 0.4 Absolute Neutrophils 2.2 Absolute Lymphocytes 0.9 Absolute Monocytes 0.4 Absolute Eosinophils 0.1 Absolute Basophils 0.0 Sodium 136.0 L Potassium 4.7 Chloride 102 Carbon Dioxide 22 Anion Gap 12 BUN 63 H Creatinine 5.02 H Est GFR ( Amer) 10 L Est GFR (Non-Af Amer) 8 L Glucose 102 Calcium 8.6 Assessment & Plan - Diagnosis (1) Acute deep vein thrombosis (DVT) of left femoral vein Is this a current diagnosis for this admission?: YesPlan: We discontinue IV heparin (2) Acute deep vein thrombosis (DVT) of left lower extremity Qualifiers: Affected thrombotic vein of extremity: femoral Qualified Code(s): I82.412 - Acute embolism and thrombosis of left femoral vein Is this a current diagnosis for this admission?: Yes (3) Diabetes mellitus type II, controlled Qualifiers: Diabetes mellitus complication status: with kidney complications Diabetes mellitus complication detail: with chronic kidney disease Diabetes mellitus assistant terminal manager insulin use: without assistant terminal manager use Chronic kidney disease stage: on chronic dialysis Qualified Code(s): E11.22 - Type 2 diabetes mellitus with diabetic chronic kidney disease; N18.1 - Chronic kidney disease, stage 1; Z79.4 - manager intermediate (current) use of insulin Is this a current diagnosis for this admission?: Yes (4) End stage renal disease Is this a current diagnosis for this admission?: Yes
[2016-12-19] MEDS: DOCUSATE SODIUM 100 MG CAPSULE PO SCH (18:39)
[2016-12-19] MEDS: ASPIRIN 81 MG TABLET, CHEWABLE PO SCH (18:40)
[2016-12-19] MEDS: DULOXETINE HCL 30 MG CAPSULE.DR PO SCH (18:40)
[2016-12-19] MEDS: ROPINIROLE HCL 0.25 MG TABLET PO SCH (18:43)
[2016-12-19] MEDS: CINACALCET HCL 30 MG TABLET PO SCH (18:45)
[2016-12-19] MEDS: AMLODIPINE BESYLATE 5 MG TABLET PO SCH ×2 (18:47→21:34)
[2016-12-19] MEDS: MEMANTINE HCL 10 MG TABLET PO SCH ×2 (18:47→21:35)
[2016-12-19] MEDS: INSULIN GLARGINE,HUM.REC.ANLOG 300 UNIT/3 ML INSULN.PEN SUBCUT SCH (18:47)
[2016-12-19] MEDS: DONEPEZIL HCL 5 MG TABLET PO SCH (21:34)
[2016-12-19] MEDS: QUETIAPINE FUMARATE 25 MG TABLET PO SCH (21:35)
[2016-12-19] MEDS: WARFARIN SODIUM 5 MG TABLET PO SCH (21:35)
[2016-12-19] MEDS: ACETAMINOPHEN 325 MG TABLET PO PRN (21:36)
[2016-12-19] MEDS: ZOLPIDEM TARTRATE 5 MG TABLET PO SCH (21:36)
[2016-12-20] MEDS: CLONIDINE HCL 0.1 MG TABLET PO SCH ×3 (05:53→22:23)
[2016-12-20] MEDS: SEVELAMER HCL 400 MG TABLET PO SCH ×3 (08:41→17:31)
[2016-12-20] MEDS: ASPIRIN 81 MG TABLET, CHEWABLE PO SCH (13:35)
[2016-12-20] MEDS: DOCUSATE SODIUM 100 MG CAPSULE PO SCH (13:35)
[2016-12-20] MEDS: AMLODIPINE BESYLATE 5 MG TABLET PO SCH ×2 (13:35→22:23)
[2016-12-20] MEDS: MEMANTINE HCL 10 MG TABLET PO SCH ×2 (13:35→22:23)
[2016-12-20] MEDS: DULOXETINE HCL 30 MG CAPSULE.DR PO SCH (13:36)
[2016-12-20] MEDS: CINACALCET HCL 30 MG TABLET PO SCH (13:37)
[2016-12-20] MEDS: ROPINIROLE HCL 0.25 MG TABLET PO SCH (13:37)
[2016-12-20] MEDS: INSULIN GLARGINE,HUM.REC.ANLOG 300 UNIT/3 ML INSULN.PEN SUBCUT SCH (13:43)
--- NOTE | 2016-12-20 18:50 | PDOC TRANSFER SUMMARY ---
General - Admit/Disc Date/PCP Admission Date/Primary Care Provider: 12/13/16 19:18 FRANNY ESPINOZA MD Discharge Date: 12/20/16 - Discharge Diagnosis (1) Acute deep vein thrombosis (DVT) of left femoral vein Is this a current diagnosis for this admission?: Yes (2) Acute deep vein thrombosis (DVT) of left lower extremity Is this a current diagnosis for this admission?: Yes (3) Diabetes mellitus type II, controlled Is this a current diagnosis for this admission?: Yes (4) End stage renal disease Is this a current diagnosis for this admission?: Yes - Additional Information Resuscitation Status: Do Not Resuscitate Home Medications: Acetaminophen [Tylenol 325 mg Tablet] 2 tab PO Q6HP PRN 12/13/16 Amlodipine Besylate [Norvasc 5 mg Tablet] 5 mg PO BID 12/13/16 Cinacalcet HCl [Sensipar 30 mg Tablet] 30 mg PO DAILY 12/13/16 Clonidine HCl [Catapres 0.1 mg Tablet] 0.1 mg PO TID 12/13/16 Docusate Sodium [Colace 100 mg Capsule] 100 mg PO DAILY 12/13/16 Donepezil HCl [Aricept] 10 mg PO QHS 12/13/16 Duloxetine HCl [Cymbalta] 60 mg PO DAILY 12/13/16 Insulin Glargine,Hum.rec.anlog [Lantus Solostar] 10 units SQ DAILY 12/13/16 Melatonin [Melatin] 3 mg PO QHS 12/13/16 Memantine HCl [Namenda 10 mg Tablet] 10 mg PO BID 12/13/16 Quetiapine Fumarate [Seroquel 25 mg Tablet] 25 mg PO QHS 12/13/16 Ropinirole HCl [Requip] 0.5 mg PO DAILY 12/13/16 Sevelamer Carbonate [Renvela] 1,600 mg PO MEALS 12/13/16 Zolpidem Tartrate [Ambien 5 mg Tablet] 5 mg PO QHS 12/13/16 Fexofenadine HCl [Zenaida] 180 mg PO DAILY PRN 12/14/16 Insulin Aspart [Novolog Insulin (Aspart) 100 unit/mL] 0 unit SUBCUT .SLD SCALE PRN 12/14/16 Nitroglycerin 0.4 mg SL Q15MP PRN MDD 3 12/14/16 Ondansetron HCl [Zofran] 4 mg PO Q6 PRN 12/14/16 Warfarin Sodium [Coumadin 5 mg Tablet] 5 mg PO QHS #0 tablet 12/20/16 History of Present Illness Admission Date/PCP: 12/13/16 19:18 FRANNY ESPINOZA MD History of Present Illness: Patient 81-year-old female with end-stage renal disease on maintenance hemodialysis, resident of the [facility], I received a call from Dr. Pascual that patient needed to have venous Doppler of the leg because she has left leg swelling when compared to the right leg. I ordered a stat venous Doppler which was done the [facility] on it showed extensive vein thrombosis involving the left femoral vein down to the popliteal vein, she has a history of pulmonary embolism with IVC filter. Patient is directly admitted from the [facility] to the hospital to be treated with high-dose heparin and subsequently transitioned to Coumadin. She unfortunately cannot use the newer anticoagulants because she has end-stage renal disease on maintenance hemodialysis Hospital Course Hospital Course: Patient was admitted because of extensive deep vein thrombosis of the left lower extremities, she was treated with IV heparin and Coumadin the INR was therapeutic yesterday and should be discharged back to [facility]. She was seen by nephrology on she had hemodialysis in the hospital. Physical Exam Vital Signs: Temp Pulse Resp BP Pulse Ox 98.0 F 69 16 141/62 H 98 12/20/16 16:33 12/20/16 16:33 12/20/16 16:33 12/20/16 16:33 12/20/16 16:33 Intake & Output 12/19/16 12/20/16 12/21/16 06:59 06:59 06:59 Intake Total 1113 994 780 Balance 1113 994 780 Weight 65 kg 65 kg General appearance: PRESENT: no acute distress Eye exam: PRESENT: PERRLA Respiratory exam: PRESENT: clear to auscultation korina Cardiovascular exam: PRESENT: +S1, +S2 GI/Abdominal exam: PRESENT: soft Neurological exam: PRESENT: alert, CN II-XII grossly intact Results Laboratory Results: 12/19/16 05:40 12/19/16 05:40 Plan Discharge Plan: Patient should have daily PT/INR
[2016-12-20 19:18] LABS: PROTHROMBIN TIME 23.5 SEC (11.4-15.4)
[2016-12-20] MEDS: WARFARIN SODIUM 5 MG TABLET PO SCH (22:24)
[2016-12-20] MEDS: QUETIAPINE FUMARATE 25 MG TABLET PO SCH (22:24)
[2016-12-20] MEDS: DONEPEZIL HCL 5 MG TABLET PO SCH (22:24)
[2016-12-20] MEDS: ZOLPIDEM TARTRATE 5 MG TABLET PO SCH (22:24)
[2016-12-21 05:32] LABS: HEMATOCRIT 33.9 % (36.0-47.0); HEMOGLOBIN 11.8 g/dL (12.0-15.5); HGB HCT DIFFERENCE 1.5; MEAN CORPUSCULAR HEMOGLOBIN 31.8 pg (27.0-33.4); MEAN CORPUSCULAR HGB CONC 34.7 g/dL (32.0-36.0); MEAN CORPUSCULAR VOLUME 92 fl (80-97); RED BLOOD COUNT 3.69 10^6/uL (3.72-5.28); RED CELL DISTRIBUTION WIDTH 15.3 % (11.5-14.0)
[2016-12-21] MEDS: CLONIDINE HCL 0.1 MG TABLET PO SCH (06:03)
[2016-12-21] MEDS: DULOXETINE HCL 30 MG CAPSULE.DR PO SCH (11:37)
[2016-12-21] MEDS: ASPIRIN 81 MG TABLET, CHEWABLE PO SCH (11:38)
[2016-12-21] MEDS: MEMANTINE HCL 10 MG TABLET PO SCH (11:39)
[2016-12-21] MEDS: DOCUSATE SODIUM 100 MG CAPSULE PO SCH (11:39)
[2016-12-21] MEDS: SEVELAMER HCL 400 MG TABLET PO SCH ×2 (11:39→11:58)
[2016-12-21] MEDS: AMLODIPINE BESYLATE 5 MG TABLET PO SCH (11:39)
[2016-12-21] MEDS: CINACALCET HCL 30 MG TABLET PO SCH (11:39)
[2016-12-21] MEDS: ROPINIROLE HCL 0.25 MG TABLET PO SCH (11:40)
[2016-12-21] MEDS: INSULIN GLARGINE,HUM.REC.ANLOG 300 UNIT/3 ML INSULN.PEN SUBCUT SCH (11:48)
[2016-12-21 14:16] VITALS: BP 141/40
--- NOTE | 2016-12-21 17:15 | PDOC PROGRESS REPORT ---
Subjective Progress Note for:: 12/21/16 Subjective:: I saw the patient on dialysis this morning at around 8:30 AM. She is fairly comfortable and has been tolerating dialysis without any complaints. She is actually ready to go back to the longterm. Physical Exam Vital Signs: Temp Pulse Resp BP Pulse Ox 97.3 F 72 16 141/40 H 97 12/21/16 12:00 12/21/16 12:00 12/21/16 12:00 12/21/16 12:00 12/21/16 12:00 Intake & Output 12/20/16 12/21/16 12/22/16 06:59 06:59 06:59 Intake Total 994 1160 Balance 994 1160 Weight 65 kg 64.8 kg Vital signs on dialysis when I saw her this morning: Blood pressure 129/65, heart rate 71, blood flow rate of 300 mL per minute, dialysate flow rate of 600 mL per minute. Exam: General appearance: PRESENT: no acute distress, cooperative, well-developed, well-nourished Head exam: PRESENT: atraumatic, normocephalic Eye exam: PRESENT: conjunctiva pink, PERRLA. ABSENT: scleral icterus Neck exam: ABSENT: JVD Respiratory exam: PRESENT: Normal breath sounds. ABSENT: crackles, rales, rhonchi, unlabored, wheezes Cardiovascular exam: PRESENT: Regular rate rhythm -+S1, +S2. Grade 2/6 systolic ejection murmur ABSENT: diastolic murmur, systolic murmur GI/Abdominal exam: PRESENT: normal bowel sounds, soft. ABSENT: guarding, mass, tenderness Extremities exam: ABSENT: No edema Neurological exam: PRESENT: alert, awake, oriented to person, place and time. Skin exam: PRESENT: dry, warm, Results Laboratory Results: 12/21/16 04:52 12/19/16 05:40 12/21/16 04:52 WBC 4.0 RBC 3.69 L Hgb 11.8 L Hct 33.9 L MCV 92 MCH 31.8 MCHC 34.7 RDW 15.3 H Plt Count 110 L Assessment & Plan - Diagnosis (1) End stage renal disease Is this a current diagnosis for this admission?: YesPlan: We will do dialysis today for 3 hours, using the patient's AV fistula, with 2 potassium bath, blood flow rate of 300 mL per minute, dialysate flow rate of 600 mL per minute, ultrafiltration 1 L, no heparin and no Procrit during dialysis. Monitored the patient during dialysis. Next dialysis will be on Saturday on her regular dialysis schedule at [facility]. Patient may be transferred back to [facility] from nephrology standpoint. (2) Acute deep vein thrombosis (DVT) Qualifiers: DVT location: lower extremity Affected thrombotic vein of extremity: femoral Laterality: left Qualified Code(s): I82.412 - Acute embolism and thrombosis of left femoral vein Is this a current diagnosis for this admission?: YesPlan: On therapeutic anticoagulation with warfarin. Advised patient to be careful on moving so as not to fall or hit her head. (3) Anemia in chronic kidney disease (CKD) Is this a current diagnosis for this admission?: YesPlan: Well controlled. No need of Procrit at this time. (4) Hypertension Qualifiers: Hypertension type: essential hypertension Qualified Code(s): I10 - Essential (primary) hypertension Is this a current diagnosis for this admission?: YesPlan: Fairly controlled. Clinical okay - Time Time with patient: 15-25 minutes
== END 2016-12-21 13:00 | DRG 299 ==
LOC: 3W 19:18 → 5 12-16 21:00
PROVIDERS: ADMIT Internal Medicine; ATTEND Internal Medicine
PROC: 5A1D60Z (ICD-10-PCS; principal; 2016-12-14)
DX: I82.412 Acute embolism and thrombosis of left femoral vein (principal); N18.6 End stage renal disease; I69.354 Hemiplegia and hemiparesis following cerebral infarction affecting left non-dominant side; N25.81 Secondary hyperparathyroidism of renal origin; I12.0 Hypertensive chronic kidney disease with stage 5 chronic kidney disease or end stage renal disease; I82.432 Acute embolism and thrombosis of left popliteal vein; E11.22 Type 2 diabetes mellitus with diabetic chronic kidney disease; I25.10 Atherosclerotic heart disease of native coronary artery without angina pectoris; E78.5 Hyperlipidemia, unspecified; Z99.2 Dependence on renal dialysis; R01.1 Cardiac murmur, unspecified; H54.42 Blindness, left eye, normal vision right eye; E11.40 Type 2 diabetes mellitus with diabetic neuropathy, unspecified; E11.319 Type 2 diabetes mellitus with unspecified diabetic retinopathy without macular edema; E83.39 Other disorders of phosphorus metabolism; K21.9 Gastro-esophageal reflux disease without esophagitis; K58.9 Irritable bowel syndrome, unspecified; M79.7 Fibromyalgia; M19.90 Unspecified osteoarthritis, unspecified site; F32.9 Major depressive disorder, single episode, unspecified; F43.10 Post-traumatic stress disorder, unspecified; D63.1 Anemia in chronic kidney disease; I25.2 Old myocardial infarction; Z79.4 Long term (current) use of insulin; Z86.711 Personal history of pulmonary embolism; Z95.5 Presence of coronary angioplasty implant and graft; Z79.899 Other long term (current) drug therapy; Z90.710 Acquired absence of both cervix and uterus; Z91.048 Other nonmedicinal substance allergy status; Z79.01 Long term (current) use of anticoagulants; Z79.82 Long term (current) use of aspirin; Z88.4 Allergy status to anesthetic agent; Z88.6 Allergy status to analgesic agent; Z88.8 Allergy status to other drugs, medicaments and biological substances; Z82.49 Family history of ischemic heart disease and other diseases of the circulatory system; Z82.3 Family history of stroke; Z82.5 Family history of asthma and other chronic lower respiratory diseases
CPT/HCPCS: 36415; 80048; 80076; 82272; 82962; 85025; 85027; 85610; 85730; 86317; 86704; 87340; 87522; J1644; J1815

== ENCOUNTER → 2016-12-24 | Outpatient (CLI) | payer MEDICARE, MEDICAID | LOC: PNR 18:02 | PROVIDERS: ATTEND Internal Medicine | DX: E11.9 Type 2 diabetes mellitus without complications (principal) | CPT/HCPCS: 83036 ==

== ENCOUNTER 2017-01-15 02:19 | Inpatient (IN) | payer MEDICARE, MEDICAID ==
[2017-01-15] MEDS ORDERED: METHYLPREDNISOLONE INJ 125 MG/2 ML SDV IV ONE ×2 (02:34→03:01)
[2017-01-15] MEDS ORDERED: IPRATROPIUM/ALBUTEROL 0.5-2.5 MG/3 ML AMPUL NEB ONE ×2 (02:34)
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
[2017-01-15 03:21] LABS: VENOUS BLOOD BASE EXCESS -6.4 mmol/L; VENOUS BLOOD HCO3 18.1 mmol/L (20-32); VENOUS BLOOD PCO2 32.8 mmHg (35-63); VENOUS BLOOD PH 7.36 (7.30-7.42)
[2017-01-15 03:27] LABS: PROTHROMBIN TIME 23.2 SEC (11.4-15.4)
[2017-01-15 03:34] LABS: ALANINE AMINOTRANSFERASE 33 U/L (9-52); ALBUMIN 3.4 g/dL (3.5-5.0); ALKALINE PHOSPHATASE 152 U/L (38-126); ANION GAP 15 (5-19); ASPARTATE AMINO TRANSFERASE 25 U/L (14-36); BILIRUBIN,DIRECT 0.5 mg/dL (0.0-0.4); BILIRUBIN,TOTAL 0.8 mg/dL (0.2-1.3); BLOOD UREA NITROGEN 73 mg/dL (7-20); CALCIUM 7.9 mg/dL (8.4-10.2); CARBON DIOXIDE 21 mmol/L (22-30); CHLORIDE 102 mmol/L (98-107); CREATINE KINASE 79 U/L (30-135); CREATININE RESULT 4.75 mg/dL (0.52-1.25); GLUCOSE 175 mg/dL (75-110); POTASSIUM 4.5 mmol/L (3.6-5.0); SODIUM 138.3 mmol/L (137-145)
[2017-01-15] MEDS ORDERED: CEFEPIME 2 GM/D5W RTU 50 ML IV ONE (03:43)
[2017-01-15 03:45] LABS: CREATINE KINASE MB 2.03 ng/mL (<4.55)
[2017-01-15 03:47] LABS: TROPONIN I 0.032 ng/mL
[2017-01-15 03:58] LABS: ABSOLUTE LYMPHOCYTES (AUTO) 0.7 10^3/uL (0.5-4.7); ABSOLUTE MONOCYTES (AUTO) 0.4 10^3/uL (0.1-1.4); ABSOLUTE NEUT (AUTO) 3.6 10^3/uL (1.7-8.2); BASOPHILS % (AUTO) 0.3 % (0-2); EOSINOPHILS % (AUTO) 0.1 % (0-6); HEMATOCRIT 22.7 % (36.0-47.0); HGB HCT DIFFERENCE 1.3; LYMPHOCYTES % (AUTO) 14.4 % (13-45); MEAN CORPUSCULAR HEMOGLOBIN 32.1 pg (27.0-33.4); MEAN CORPUSCULAR HGB CONC 35.3 g/dL (32.0-36.0); MEAN CORPUSCULAR VOLUME 91 fl (80-97); MONOCYTES % (AUTO) 7.8 % (3-13); RED CELL DISTRIBUTION WIDTH 14.7 % (11.5-14.0); SEGMENTED NEUTROPHILS % (AUTO) 77.4 % (42-78); WHITE BLOOD COUNT 4.6 10^3/uL (4.0-10.5)
[2017-01-15] MEDS: MAGNESIUM SULFATE/D5W 100 ML IV SCH ×2 (04:21→05:17)
--- NOTE | 2017-01-15 08:17 | EKG REPORT ---
SEVERITY:- ABNORMAL ECG - ATRIAL FIBRILLATION, V-RATE 82-139 BORDERLINE LEFT AXIS DEVIATION NONSPECIFIC REPOL ABNORMALITY, LATERAL LEADS CONSIDER OLD ANTERIOR CO : Confirmed by: Angel Rivera MD 15-Jan-2017 08:16:37
[2017-01-15] MEDS ORDERED: VANCOMYCIN HCL 1,000 MG in DEXTROSE 5%-WATER 250 ML IV ONE (09:00)
[2017-01-15 09:34] LABS: THYROID STIMULATING HORMONE 2.44 uIU/mL (0.47-4.68)
[2017-01-15] MEDS ORDERED: CEFEPIME 1 GM/D5W RTU 50 ML IV SCH (10:00)
[2017-01-15] MEDS: IPRATROPIUM/ALBUTEROL 0.5-2.5 MG/3 ML AMPUL NEB PRN (10:09)
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
[2017-01-15] MEDS ORDERED: DEXTROSE 40% GEL 15 GM TUBE PO PRN (23:23)
[2017-01-15] MEDS ORDERED: DEXTROSE 50%-WATER SYRINGE 25 GM/50 ML DOSE IV PRN (23:23)
[2017-01-15] MEDS ORDERED: GLUCAGON,HUMAN RECOMB 1 MG INJ IM PRN (23:23)
[2017-01-15] MEDS ORDERED: DEXTROSE 50%-WATER SYRINGE 12.5 GM/25 ML DOSE IV PRN (23:23)
[2017-01-15] MEDS ORDERED: DEXTROSE 40% GEL 15 GM TUBE X 2 PO PRN (23:23)
[2017-01-15] MEDS ORDERED: VANCOMYCIN HCL INJ 1000 MG VIAL IV SCH (23:30)
[2017-01-15] MEDS ORDERED: CEFEPIME 1 GM/D5W RTU 1 GM/50 ML RTUPB IV ONE (23:39)
[2017-01-15] MEDS ORDERED: INSULIN LISPRO 100 UNIT/ML 3 ML VIAL SUBCUT PRN (23:48)
[2017-01-15] MEDS: CEFEPIME 1 GM/D5W RTU 1 GM/50 ML RTUPB IV SCH (23:50)
[2017-01-15] MEDS ORDERED: ACETAMINOPHEN 325 MG TABLET PO PRN (23:52)
[2017-01-15] MEDS: HEPARIN SOD (PORCINE) 5,000 UNIT/ML 1 ML SYRINGE SUBCUT SCH (23:52)
[2017-01-15] MEDS ORDERED: LORATADINE 10 MG TABLET PO PRN (23:57)
[2017-01-16] MEDS ORDERED: NITROGLYCERIN 0.4 MG/TAB 25 TAB/BOTTLE SL PRN
[2017-01-16] MEDS ORDERED: ONDANSETRON 4 MG TAB.RAPDIS PO PRN (00:01)
[2017-01-16] MEDS ORDERED: DONEPEZIL HCL 5 MG TABLET PO ONE (00:45)
[2017-01-16] MEDS ORDERED: WARFARIN SODIUM 3 MG TABLET PO ONE (00:45)
[2017-01-16] MEDS ORDERED: ROPINIROLE HCL 0.25 MG TABLET PO ONE (00:45)
[2017-01-16] MEDS ORDERED: CLONIDINE HCL 0.1 MG TABLET PO ONE (00:45)
[2017-01-16] MEDS ORDERED: QUETIAPINE FUMARATE 25 MG TABLET PO ONE (00:45)
[2017-01-16] MEDS ORDERED: ACETAMINOPHEN 325 MG TABLET PO ONE (00:45)
[2017-01-16] MEDS ORDERED: MEMANTINE HCL 10 MG TABLET PO ONE (00:45)
[2017-01-16] MEDS: IPRATROPIUM/ALBUTEROL 0.5-2.5 MG/3 ML AMPUL NEB PRN (02:09)
[2017-01-16] MEDS ORDERED: AMLODIPINE BESYLATE 5 MG TABLET PO ONE (02:30)
[2017-01-16 05:33] LABS: PROTHROMBIN TIME 22.1 SEC (11.4-15.4)
[2017-01-16 05:38] LABS: ABSOLUTE LYMPHOCYTES (AUTO) 0.7 10^3/uL (0.5-4.7); ABSOLUTE MONOCYTES (AUTO) 0.3 10^3/uL (0.1-1.4); ABSOLUTE NEUT (AUTO) 3.9 10^3/uL (1.7-8.2); BASOPHILS % (AUTO) 0.3 % (0-2); EOSINOPHILS % (AUTO) 0.3 % (0-6); HEMATOCRIT 21.9 % (36.0-47.0); HGB HCT DIFFERENCE 1.2; LYMPHOCYTES % (AUTO) 14.5 % (13-45); MEAN CORPUSCULAR HEMOGLOBIN 31.6 pg (27.0-33.4); MEAN CORPUSCULAR HGB CONC 35.4 g/dL (32.0-36.0); MEAN CORPUSCULAR VOLUME 89 fl (80-97); MONOCYTES % (AUTO) 6.5 % (3-13); RED BLOOD COUNT 2.45 10^6/uL (3.72-5.28); SEGMENTED NEUTROPHILS % (AUTO) 78.4 % (42-78); WHITE BLOOD COUNT 4.9 10^3/uL (4.0-10.5)
[2017-01-16 05:39] LABS: ALANINE AMINOTRANSFERASE 37 U/L (9-52); ALBUMIN 3.3 g/dL (3.5-5.0); ALKALINE PHOSPHATASE 136 U/L (38-126); ANION GAP 16 (5-19); ASPARTATE AMINO TRANSFERASE 35 U/L (14-36); BILIRUBIN,DIRECT 0.4 mg/dL (0.0-0.4); BILIRUBIN,TOTAL 0.6 mg/dL (0.2-1.3); BLOOD UREA NITROGEN 91 mg/dL (7-20); CALCIUM 8.6 mg/dL (8.4-10.2); CARBON DIOXIDE 20 mmol/L (22-30); CHLORIDE 101 mmol/L (98-107); CREATININE RESULT 5.47 mg/dL (0.52-1.25); GLUCOSE 123 mg/dL (75-110); POTASSIUM 4.3 mmol/L (3.6-5.0); SODIUM 137.4 mmol/L (137-145); TOTAL PROTEIN 5.7 g/dL (6.3-8.2)
[2017-01-16 06:07] LABS: HEMOGLOBIN 7.7 g/dL (12.0-15.5)
[2017-01-16] MEDS: CLONIDINE HCL 0.1 MG TABLET PO SCH ×3 (06:38→22:43)
[2017-01-16] MEDS: HEPARIN SOD (PORCINE) 5,000 UNIT/ML 1 ML SYRINGE SUBCUT SCH ×3 (06:38→22:46)
[2017-01-16] MEDS ORDERED: ENOXAPARIN SODIUM INJ 40 MG/0.4 ML DISP.SYRIN SUBCUT SCH (08:00)
[2017-01-16] MEDS: SEVELAMER HCL 400 MG TABLET PO SCH ×3 (08:16→17:00)
[2017-01-16] MEDS: CINACALCET HCL 30 MG TABLET PO SCH (09:18)
[2017-01-16] MEDS: DOCUSATE SODIUM 100 MG CAPSULE PO SCH (09:18)
[2017-01-16] MEDS: CEFEPIME 1 GM/D5W RTU 1 GM/50 ML RTUPB IV SCH ×2 (09:18→22:48)
[2017-01-16] MEDS: MEMANTINE HCL 10 MG TABLET PO SCH ×2 (09:18→18:02)
[2017-01-16] MEDS: AMLODIPINE BESYLATE 5 MG TABLET PO SCH ×2 (09:18→22:43)
[2017-01-16] MEDS: DULOXETINE HCL 30 MG CAPSULE.DR PO SCH (09:18)
[2017-01-16] MEDS: INSULIN GLARGINE,HUM.REC.ANLOG 300 UNIT/3 ML INSULN.PEN SUBCUT SCH (09:18)
[2017-01-16] MEDS: FOLIC ACID/VITAMIN B COMP W-C CAPSULE PO SCH (09:18)
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
--- NOTE | 2017-01-16 17:05 | PDOC PROGRESS REPORT ---
Subjective Progress Note for:: 01/16/17 Subjective:: She was admitted yesterday when she presented with pneumonia, she had hemodialysis today, she was seen by the bedside Physical Exam Vital Signs: Temp Pulse Resp BP Pulse Ox 98.3 F 85 16 132/55 H 99 01/16/17 15:00 01/16/17 15:24 01/16/17 15:24 01/16/17 15:00 01/16/17 15:24 Intake & Output 01/15/17 01/16/17 01/17/17 06:59 06:59 06:59 Intake Total 170 600 Balance 170 600 Weight 63.4 kg Head exam: PRESENT: atraumatic, normocephalic Ear exam: PRESENT: normal external ear exam Neck exam: PRESENT: full ROM Respiratory exam: PRESENT: crackles, wheezes Cardiovascular exam: PRESENT: RRR, +S1, +S2 Vascular exam: PRESENT: normal capillary refill GI/Abdominal exam: PRESENT: normal bowel sounds, soft Rectal exam: PRESENT: deferred Neurological exam: PRESENT: alert, awake, oriented to person, oriented to place , oriented to time, oriented to situation, CN II-XII grossly intact. ABSENT: motor sensory deficit Psychiatric exam: PRESENT: appropriate affect, normal mood Skin exam: PRESENT: dry, intact, warm Results Laboratory Results: 01/16/17 05:04 01/16/17 05:04 01/16/17 01/16/17 01/16/17 05:04 05:04 08:01 WBC 4.9 RBC 2.45 L Hgb 7.7 L Hct 21.9 L MCV 89 MCH 31.6 MCHC 35.4 RDW 15.0 H Plt Count 83 L Seg Neutrophils % 78.4 H Lymphocytes % 14.5 Monocytes % 6.5 Eosinophils % 0.3 Basophils % 0.3 Absolute Neutrophils 3.9 Absolute Lymphocytes 0.7 Absolute Monocytes 0.3 Absolute Eosinophils 0.0 Absolute Basophils 0.0 Sodium 137.4 Potassium 4.3 Chloride 101 Carbon Dioxide 20 L Anion Gap 16 BUN 91 H Creatinine 5.47 H Est GFR ( Amer) 9 L Est GFR (Non-Af Amer) 8 L Glucose 123 H Calcium 8.6 Total Bilirubin 0.6 AST 35 ALT 37 Alkaline Phosphatase 136 H Total Protein 5.7 L Albumin 3.3 L Blood Type A NEGATIVE Antibody Screen NEGATIVE 04/08/2301/15/17 01/15/17 09:09 09:09 15:34 Creatine Kinase 137 H 281 H Troponin I 0.042 01/15/17 01/15/17 01/15/17 15:34 21:20 21:20 Creatine Kinase 307 H Troponin I 0.053 0.063 Impressions: Chest CT 01/15/17 00:00 IMPRESSION: Trace bilateral pleural effusions Bibasilar consolidation in the posterior costophrenic sulci atelectasis versus pneumonia Fluffy ground-glass opacities in the bilateral upper lobes, pneumonia versus edema. Chest X-Ray 01/15/17 02:33 IMPRESSION: Right basilar density is noted above most consistent with a pneumonic infiltrate. Remaining lung vaz are clear. Assessment & Plan - Diagnosis (1) Bilateral pneumonia Qualifiers: Pneumonia type: due to unspecified organism Lung location: unspecified part of lung Qualified Code(s): J18.9 - Pneumonia, unspecified organism Is this a current diagnosis for this admission?: Yes (2) End stage renal disease Is this a current diagnosis for this admission?: Yes (3) Hypertension Qualifiers: Hypertension type: essential hypertension Qualified Code(s): I10 - Essential (primary) hypertension Is this a current diagnosis for this admission?: Yes (4) Type 2 diabetes mellitus Qualifiers: Diabetes mellitus complication status: with kidney complications Diabetes mellitus complication detail: with chronic kidney disease Diabetes mellitus fpc insulin use: with fpc use Chronic kidney disease stage: on chronic dialysis Qualified Code(s): E11.22 - Type 2 diabetes mellitus with diabetic chronic kidney disease; N18.1 - Chronic kidney disease, stage 1; 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
[2017-01-16] MEDS ORDERED: VANCOMYCIN HCL 1,000 MG in DEXTROSE 5%-WATER 250 ML IV SCH (18:00)
[2017-01-16] MEDS: ROPINIROLE HCL 0.25 MG TABLET PO SCH (22:42)
[2017-01-16] MEDS: ACETAMINOPHEN 325 MG TABLET PO SCH (22:43)
[2017-01-16] MEDS: QUETIAPINE FUMARATE 25 MG TABLET PO SCH (22:43)
[2017-01-16] MEDS: DONEPEZIL HCL 5 MG TABLET PO SCH (22:44)
[2017-01-16] MEDS: WARFARIN SODIUM 3 MG TABLET PO SCH (22:44)
[2017-01-17 05:44] LABS: PROTHROMBIN TIME 21.4 SEC (11.4-15.4)
[2017-01-17 05:54] LABS: ABSOLUTE EOSINOPHILS # (AUTO) 0.1 10^3/uL (0.0-0.6); ABSOLUTE MONOCYTES (AUTO) 0.4 10^3/uL (0.1-1.4); ABSOLUTE NEUT (AUTO) 3.5 10^3/uL (1.7-8.2); BASOPHILS % (AUTO) 0.2 % (0-2); EOSINOPHILS % (AUTO) 1.5 % (0-6); HEMATOCRIT 30.9 % (36.0-47.0); HGB HCT DIFFERENCE 1.8; LYMPHOCYTES % (AUTO) 20.2 % (13-45); MEAN CORPUSCULAR HEMOGLOBIN 30.4 pg (27.0-33.4); MEAN CORPUSCULAR HGB CONC 35.2 g/dL (32.0-36.0); MEAN CORPUSCULAR VOLUME 86 fl (80-97); MONOCYTES % (AUTO) 7.9 % (3-13); RED BLOOD COUNT 3.58 10^6/uL (3.72-5.28); RED CELL DISTRIBUTION WIDTH 16.7 % (11.5-14.0); SEGMENTED NEUTROPHILS % (AUTO) 70.2 % (42-78)
[2017-01-17] MEDS: HEPARIN SOD (PORCINE) 5,000 UNIT/ML 1 ML SYRINGE SUBCUT SCH (06:17)
[2017-01-17 06:19] LABS: HEMOGLOBIN 10.9 g/dL (12.0-15.5)
[2017-01-17] MEDS: CLONIDINE HCL 0.1 MG TABLET PO SCH ×3 (06:36→21:34)
[2017-01-17] MEDS: SEVELAMER HCL 400 MG TABLET PO SCH ×3 (08:22→18:28)
[2017-01-17 09:26] LABS: ARTERIAL BLOOD BASE EXCESS 1.6 mmol/L; ARTERIAL BLOOD O2 SATURATION 66.3 % (94-98)
[2017-01-17 10:27] LABS: ARTERIAL BLOOD BASE EXCESS 2.7 mmol/L; ARTERIAL BLOOD O2 SATURATION 97.8 % (94-98)
--- NOTE | 2017-01-17 10:28 | Physician Advisory Note ---
Physician Advisor ProgressNote .: Pursuant to the plan for [facility], I have reviewed the medical record for this patient. Physician Advisor Statement: Possible documentation opportunities if attending agrees: 1. "bilat lainez-lobar pneumonia, possibly gram--negative or MRSA given ESRD on HD , pt from SNF, w/COPD & DM-2" [covered w/vanc, cefepime since adm] 2. "acute exacerbation of COPD" [pt w/wheezing on adm, giving nebs] 3. "anemia of Chronic Kidney Dz" As always, if concerned about any unstable VS or abnormal labs, please comment on them & note what doing about them, & please document each day the potential clinical problems you are concerned could occur if pt not kept in hospital for tx at this time. Thanks for your help with documentation accuracy/specificity improvement! Karin Garcia MD [facility] Physician Advisor, Fellow of Hospital Medicine
[2017-01-17] MEDS: CEFEPIME 1 GM/D5W RTU 1 GM/50 ML RTUPB IV SCH ×2 (10:39→21:42)
[2017-01-17] MEDS: CINACALCET HCL 30 MG TABLET PO SCH (10:41)
[2017-01-17] MEDS: AMLODIPINE BESYLATE 5 MG TABLET PO SCH ×2 (10:48→21:35)
[2017-01-17] MEDS: DOCUSATE SODIUM 100 MG CAPSULE PO SCH (10:48)
[2017-01-17] MEDS: FOLIC ACID/VITAMIN B COMP W-C CAPSULE PO SCH (10:48)
[2017-01-17] MEDS: MEMANTINE HCL 10 MG TABLET PO SCH ×2 (10:49→18:28)
[2017-01-17] MEDS: DULOXETINE HCL 30 MG CAPSULE.DR PO SCH (10:49)
[2017-01-17] MEDS: INSULIN GLARGINE,HUM.REC.ANLOG 300 UNIT/3 ML INSULN.PEN SUBCUT SCH (10:49)
[2017-01-17 10:53] LABS: ABSOLUTE EOSINOPHILS # (AUTO) 0.1 10^3/uL (0.0-0.6); ABSOLUTE LYMPHOCYTES (AUTO) 0.8 10^3/uL (0.5-4.7); ABSOLUTE MONOCYTES (AUTO) 0.3 10^3/uL (0.1-1.4); ABSOLUTE NEUT (AUTO) 2.9 10^3/uL (1.7-8.2); BASOPHILS % (AUTO) 0.3 % (0-2); EOSINOPHILS % (AUTO) 2.2 % (0-6); HEMATOCRIT 29.6 % (36.0-47.0); HEMOGLOBIN 10.5 g/dL (12.0-15.5); HGB HCT DIFFERENCE 1.9; LYMPHOCYTES % (AUTO) 18.6 % (13-45); MEAN CORPUSCULAR HEMOGLOBIN 30.6 pg (27.0-33.4); MEAN CORPUSCULAR HGB CONC 35.5 g/dL (32.0-36.0); MEAN CORPUSCULAR VOLUME 86 fl (80-97); MONOCYTES % (AUTO) 7.6 % (3-13); RED BLOOD COUNT 3.43 10^6/uL (3.72-5.28); RED CELL DISTRIBUTION WIDTH 16.7 % (11.5-14.0); SEGMENTED NEUTROPHILS % (AUTO) 71.3 % (42-78); WHITE BLOOD COUNT 4.1 10^3/uL (4.0-10.5)
[2017-01-17 11:16] LABS: ALANINE AMINOTRANSFERASE 35 U/L (9-52); ALKALINE PHOSPHATASE 126 U/L (38-126); ANION GAP 13 (5-19); ASPARTATE AMINO TRANSFERASE 25 U/L (14-36); BILIRUBIN,DIRECT 0.4 mg/dL (0.0-0.4); BILIRUBIN,TOTAL 0.9 mg/dL (0.2-1.3); BLOOD UREA NITROGEN 55 mg/dL (7-20); CALCIUM 8.3 mg/dL (8.4-10.2); CARBON DIOXIDE 27 mmol/L (22-30); CHLORIDE 100 mmol/L (98-107); CREATININE RESULT 3.48 mg/dL (0.52-1.25); GLUCOSE 110 mg/dL (75-110); POTASSIUM 3.9 mmol/L (3.6-5.0); SODIUM 139.8 mmol/L (137-145); TOTAL PROTEIN 5.6 g/dL (6.3-8.2)
--- NOTE | 2017-01-17 19:14 | PDOC PROGRESS REPORT ---
Subjective Progress Note for:: 01/17/17 Subjective:: Patient is stuporous today though she is responsive to verbal commands, CTA did not show any acute pathology, the ABG on the blood work all came back normal there is no metabolic explanation for the stupor. MRI brain could not be done because she has metals in the skull. She stated that she did not feel good Physical Exam Vital Signs: Temp Pulse Resp BP Pulse Ox 97.9 F 85 18 152/63 H 99 01/17/17 11:52 01/17/17 14:00 01/17/17 03:26 01/17/17 11:52 01/17/17 16:40 Intake & Output 01/16/17 01/17/17 01/18/17 06:59 06:59 06:59 Intake Total 170 1678 Output Total 1700 Balance 170 -22 Weight 63.4 kg 64.6 kg General appearance: PRESENT: other - She is drowsy but responsive to verbal commands Eye exam: PRESENT: PERRLA Respiratory exam: PRESENT: clear to auscultation korina Cardiovascular exam: PRESENT: +S1, +S2 GI/Abdominal exam: PRESENT: soft Neurological exam: PRESENT: altered - She is responsive to verbal commands Results Laboratory Results: 01/17/17 10:34 01/17/17 10:34 01/17/17 01/17/17 01/17/17 05:15 09:05 10:05 WBC 5.0 RBC 3.58 L Hgb 10.9 L D Hct 30.9 L MCV 86 MCH 30.4 MCHC 35.2 RDW 16.7 H Plt Count 94 L Seg Neutrophils % 70.2 Lymphocytes % 20.2 Monocytes % 7.9 Eosinophils % 1.5 Basophils % 0.2 Absolute Neutrophils 3.5 Absolute Lymphocytes 1.0 Absolute Monocytes 0.4 Absolute Eosinophils 0.1 Absolute Basophils 0.0 Carbonic Acid 1.35 1.18 HCO3/H2CO3 Ratio 19:1 22:1 ABG pH 7.39 7.45 ABG pCO2 44.8 39.2 ABG pO2 34.9 L* 100.0 ABG HCO3 26.8 H 26.8 H ABG O2 Saturation 66.3 L 97.8 ABG Base Excess 1.6 2.7 FiO2 2L 2L Sodium Potassium Chloride Carbon Dioxide Anion Gap BUN Creatinine Est GFR ( Amer) Est GFR (Non-Af Amer) Glucose Calcium Total Bilirubin AST ALT Alkaline Phosphatase Total Protein Albumin 01/17/17 01/17/17 10:34 10:34 WBC 4.1 RBC 3.43 L Hgb 10.5 L Hct 29.6 L MCV 86 MCH 30.6 MCHC 35.5 RDW 16.7 H Plt Count 98 L Seg Neutrophils % 71.3 Lymphocytes % 18.6 Monocytes % 7.6 Eosinophils % 2.2 Basophils % 0.3 Absolute Neutrophils 2.9 Absolute Lymphocytes 0.8 Absolute Monocytes 0.3 Absolute Eosinophils 0.1 Absolute Basophils 0.0 Carbonic Acid HCO3/H2CO3 Ratio ABG pH ABG pCO2 ABG pO2 ABG HCO3 ABG O2 Saturation ABG Base Excess FiO2 Sodium 139.8 Potassium 3.9 Chloride 100 Carbon Dioxide 27 Anion Gap 13 BUN 55 H Creatinine 3.48 H Est GFR ( Amer) 15 L Est GFR (Non-Af Amer) 13 L Glucose 110 Calcium 8.3 L Total Bilirubin 0.9 AST 25 ALT 35 Alkaline Phosphatase 126 Total Protein 5.6 L Albumin 3.0 L 01/15/17 01/15/17 01/15/17 09:09 09:09 15:34 Creatine Kinase 137 H 281 H Troponin I 0.042 01/15/17 01/15/17 01/15/17 15:34 21:20 21:20 Creatine Kinase 307 H Troponin I 0.053 0.063 Impressions: Chest CT 01/15/17 00:00 IMPRESSION: Trace bilateral pleural effusions Bibasilar consolidation in the posterior costophrenic sulci atelectasis versus pneumonia Fluffy ground-glass opacities in the bilateral upper lobes, pneumonia versus edema. Chest X-Ray 01/15/17 02:33 IMPRESSION: Right basilar density is noted above most consistent with a pneumonic infiltrate. Remaining lung vaz are clear. Head CT 01/17/17 00:00 IMPRESSION: Chronic ischemic changes. Assessment & Plan - Diagnosis (1) Bilateral pneumonia Qualifiers: Pneumonia type: due to unspecified organism Lung location: unspecified part of lung Qualified Code(s): J18.9 - Pneumonia, unspecified organism Is this a current diagnosis for this admission?: Yes (2) End stage renal disease Is this a current diagnosis for this admission?: Yes (3) Hypertension Qualifiers: Hypertension type: essential hypertension Qualified Code(s): I10 - Essential (primary) hypertension Is this a current diagnosis for this admission?: Yes (4) Type 2 diabetes mellitus Qualifiers: Diabetes mellitus complication status: with kidney complications Diabetes mellitus complication detail: with chronic kidney disease 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
[2017-01-17] MEDS: ACETAMINOPHEN 325 MG TABLET PO SCH (21:34)
[2017-01-17] MEDS: ROPINIROLE HCL 0.25 MG TABLET PO SCH (21:35)
[2017-01-17] MEDS: QUETIAPINE FUMARATE 25 MG TABLET PO SCH (21:35)
[2017-01-17] MEDS: DONEPEZIL HCL 5 MG TABLET PO SCH (21:35)
[2017-01-17] MEDS: WARFARIN SODIUM 3 MG TABLET PO SCH (21:41)
[2017-01-18 05:52] LABS: ABSOLUTE EOSINOPHILS # (AUTO) 0.2 10^3/uL (0.0-0.6); ABSOLUTE LYMPHOCYTES (AUTO) 0.9 10^3/uL (0.5-4.7); ABSOLUTE MONOCYTES (AUTO) 0.3 10^3/uL (0.1-1.4); ABSOLUTE NEUT (AUTO) 2.7 10^3/uL (1.7-8.2); BASOPHILS % (AUTO) 0.6 % (0-2); EOSINOPHILS % (AUTO) 3.8 % (0-6); HEMATOCRIT 29.6 % (36.0-47.0); HEMOGLOBIN 10.7 g/dL (12.0-15.5); HGB HCT DIFFERENCE 2.5; LYMPHOCYTES % (AUTO) 22.1 % (13-45); MEAN CORPUSCULAR HEMOGLOBIN 31.1 pg (27.0-33.4); MEAN CORPUSCULAR HGB CONC 36.2 g/dL (32.0-36.0); MEAN CORPUSCULAR VOLUME 86 fl (80-97); RED BLOOD COUNT 3.45 10^6/uL (3.72-5.28); RED CELL DISTRIBUTION WIDTH 16.3 % (11.5-14.0); SEGMENTED NEUTROPHILS % (AUTO) 65.5 % (42-78); WHITE BLOOD COUNT 4.2 10^3/uL (4.0-10.5)
[2017-01-18 05:56] LABS: PROTHROMBIN TIME 21.9 SEC (11.4-15.4)
[2017-01-18] MEDS: CLONIDINE HCL 0.1 MG TABLET PO SCH ×3 (06:02→21:48)
[2017-01-18 06:10] LABS: ANION GAP 12 (5-19); BLOOD UREA NITROGEN 63 mg/dL (7-20); CALCIUM 8.4 mg/dL (8.4-10.2); CARBON DIOXIDE 24 mmol/L (22-30); CHLORIDE 101 mmol/L (98-107); CREATININE RESULT 3.64 mg/dL (0.52-1.25); GLUCOSE 97 mg/dL (75-110); POTASSIUM 3.8 mmol/L (3.6-5.0); SODIUM 137.4 mmol/L (137-145)
[2017-01-18] MEDS: SEVELAMER HCL 400 MG TABLET PO SCH ×3 (08:00→17:42)
[2017-01-18] MEDS: INSULIN GLARGINE,HUM.REC.ANLOG 300 UNIT/3 ML INSULN.PEN SUBCUT SCH (10:08)
[2017-01-18] MEDS: DULOXETINE HCL 30 MG CAPSULE.DR PO SCH (10:08)
[2017-01-18] MEDS: DOCUSATE SODIUM 100 MG CAPSULE PO SCH (10:08)
[2017-01-18] MEDS: AMLODIPINE BESYLATE 5 MG TABLET PO SCH ×2 (10:08→21:48)
[2017-01-18] MEDS: MEMANTINE HCL 10 MG TABLET PO SCH ×2 (10:08→17:42)
[2017-01-18] MEDS: FOLIC ACID/VITAMIN B COMP W-C CAPSULE PO SCH (10:08)
[2017-01-18] MEDS: CEFEPIME 1 GM/D5W RTU 1 GM/50 ML RTUPB IV SCH ×2 (10:08→21:55)
[2017-01-18] MEDS: CINACALCET HCL 30 MG TABLET PO SCH (10:08)
--- NOTE | 2017-01-18 18:46 | PDOC PROGRESS REPORT ---
Subjective Progress Note for:: 01/18/17 Subjective:: She is more awake today than yesterday, the repeat CT scan of the head was negative again for an acute CVA Physical Exam Vital Signs: Temp Pulse Resp BP Pulse Ox 97.8 F 81 20 142/64 H 100 01/18/17 07:44 01/18/17 07:44 01/18/17 07:44 01/18/17 07:44 01/18/17 07:44 Intake & Output 01/17/17 01/18/17 01/19/17 06:59 06:59 06:59 Intake Total 1678 351 222 Output Total 1700 1999 Balance -22 619 -4418 Weight 64.6 kg 64.8 kg General appearance: PRESENT: no acute distress, well-developed, well-nourished Head exam: PRESENT: atraumatic, normocephalic Eye exam: PRESENT: conjunctiva pink, EOMI, PERRLA. ABSENT: scleral icterus Ear exam: PRESENT: normal external ear exam Mouth exam: PRESENT: moist, tongue midline Neck exam: PRESENT: full ROM. ABSENT: carotid bruit, JVD, lymphadenopathy, thyromegaly Respiratory exam: PRESENT: crackles Cardiovascular exam: PRESENT: RRR, +S1, +S2. ABSENT: diastolic murmur, rubs, systolic murmur Pulses: PRESENT: normal dorsalis pedis pul, +2 pedal pulses bilateral Vascular exam: PRESENT: normal capillary refill GI/Abdominal exam: PRESENT: normal bowel sounds, soft. ABSENT: distended, guarding, mass, organolmegaly, rebound, tenderness Rectal exam: PRESENT: deferred Neurological exam: PRESENT: altered Skin exam: PRESENT: dry, intact, warm. ABSENT: cyanosis, rash Results Laboratory Results: 01/18/17 04:54 01/18/17 04:54 01/18/17 01/18/17 04:54 04:54 WBC 4.2 RBC 3.45 L Hgb 10.7 L Hct 29.6 L MCV 86 MCH 31.1 MCHC 36.2 H RDW 16.3 H Plt Count 102 L Seg Neutrophils % 65.5 Lymphocytes % 22.1 Monocytes % 8.0 Eosinophils % 3.8 Basophils % 0.6 Absolute Neutrophils 2.7 Absolute Lymphocytes 0.9 Absolute Monocytes 0.3 Absolute Eosinophils 0.2 Absolute Basophils 0.0 Sodium 137.4 Potassium 3.8 Chloride 101 Carbon Dioxide 24 Anion Gap 12 BUN 63 H Creatinine 3.64 H Est GFR ( Amer) 15 L Est GFR (Non-Af Amer) 12 L Glucose 97 Calcium 8.4 01/15/17 01/15/17 01/15/17 09:09 09:09 15:34 Creatine Kinase 137 H 281 H Troponin I 0.042 01/15/17 01/15/17 01/15/17 15:34 21:20 21:20 Creatine Kinase 307 H Troponin I 0.053 0.063 Impressions: Chest CT 01/15/17 00:00 IMPRESSION: Trace bilateral pleural effusions Bibasilar consolidation in the posterior costophrenic sulci atelectasis versus pneumonia Fluffy ground-glass opacities in the bilateral upper lobes, pneumonia versus edema. Chest X-Ray 01/15/17 02:33 IMPRESSION: Right basilar density is noted above most consistent with a pneumonic infiltrate. Remaining lung vaz are clear. Head CT 01/17/17 00:00 IMPRESSION: Chronic ischemic changes. Assessment & Plan - Diagnosis (1) Bilateral pneumonia Qualifiers: Pneumonia type: due to unspecified organism Lung location: unspecified part of lung Qualified Code(s): J18.9 - Pneumonia, unspecified organism Is this a current diagnosis for this admission?: Yes (2) End stage renal disease Is this a current diagnosis for this admission?: Yes (3) Hypertension Qualifiers: Hypertension type: essential hypertension Qualified Code(s): I10 - Essential (primary) hypertension Is this a current diagnosis for this admission?: Yes (4) Type 2 diabetes mellitus Qualifiers: Diabetes mellitus complication status: with kidney complications Diabetes mellitus complication detail: with chronic kidney disease Diabetes mellitus shelter insulin use: with joint terminal attack controller use Chronic kidney disease stage: on chronic dialysis Qualified Code(s): E11.22 - Type 2 diabetes mellitus with diabetic chronic kidney disease; N18.1 - Chronic kidney disease, stage 1; Z79.4 - manager intermediate (current) use of insulin Is this a current diagnosis for this admission?: Yes (5) Metabolic encephalopathy Is this a current diagnosis for this admission?: Yes - Plan Summary Plan Summary: We will continue present treatment
--- NOTE | 2017-01-18 19:03 | PDOC PROGRESS REPORT ---
Subjective Progress Note for:: 01/18/17 Subjective:: Saw the patient is morning at around 8 AM. Patient is lethargic this morning she can barely open her eyes. She did tolerate dialysis ago. This afternoon when I saw her in her room she is a little bit more awake. She answered questions and she is oriented. She just told me that she feels tired and weak. Physical Exam Vital Signs: Temp Pulse Resp BP Pulse Ox 97.8 F 81 20 142/64 H 100 01/18/17 07:44 01/18/17 07:44 01/18/17 07:44 01/18/17 07:44 01/18/17 07:44 Intake & Output 01/17/17 01/18/17 01/19/17 06:59 06:59 06:59 Intake Total 1678 351 222 Output Total 1700 1999 Balance -22 896 -0018 Weight 64.6 kg 64.8 kg Vital signs during dialysis this morning: Blood pressure 145/69, heart rate 77, respiratory rate 14, temperature 98.1, blood flow rate of 400 mL per minute and dialysate flow rate of 600 mL per minute. Exam: General appearance: PRESENT: no acute distress, lethargic Head exam: PRESENT: atraumatic, normocephalic Eye exam: PRESENT: conjunctiva pink, PERRLA. ABSENT: scleral icterus Neck exam: ABSENT: JVD Respiratory exam: PRESENT: Diminished breath sounds. ABSENT: crackles, rales, rhonchi, unlabored, wheezes Cardiovascular exam: PRESENT: Irregularly irregular rate rhythm -+S1, +S2. Grade 3/6 systolic ejection murmur GI/Abdominal exam: PRESENT: normal bowel sounds, soft. ABSENT: guarding, mass, tenderness Extremities exam: ABSENT: No edema Neurological exam: PRESENT: Lethargic this morning which improved this afternoon , oriented to person, place and time this afternoon. Skin exam: PRESENT: dry, warm, Results Laboratory Results: 01/18/17 04:54 01/18/17 04:54 01/18/17 01/18/17 04:54 04:54 WBC 4.2 RBC 3.45 L Hgb 10.7 L Hct 29.6 L MCV 86 MCH 31.1 MCHC 36.2 H RDW 16.3 H Plt Count 102 L Seg Neutrophils % 65.5 Lymphocytes % 22.1 Monocytes % 8.0 Eosinophils % 3.8 Basophils % 0.6 Absolute Neutrophils 2.7 Absolute Lymphocytes 0.9 Absolute Monocytes 0.3 Absolute Eosinophils 0.2 Absolute Basophils 0.0 Sodium 137.4 Potassium 3.8 Chloride 101 Carbon Dioxide 24 Anion Gap 12 BUN 63 H Creatinine 3.64 H Est GFR ( Amer) 15 L Est GFR (Non-Af Amer) 12 L Glucose 97 Calcium 8.4 01/15/17 01/15/17 01/15/17 09:09 09:09 15:34 Creatine Kinase 137 H 281 H Troponin I 0.042 01/15/17 01/15/17 01/15/17 15:34 21:20 21:20 Creatine Kinase 307 H Troponin I 0.053 0.063 Impressions: Chest CT 01/15/17 00:00 IMPRESSION: Trace bilateral pleural effusions Bibasilar consolidation in the posterior costophrenic sulci atelectasis versus pneumonia Fluffy ground-glass opacities in the bilateral upper lobes, pneumonia versus edema. Chest X-Ray 01/15/17 02:33 IMPRESSION: Right basilar density is noted above most consistent with a pneumonic infiltrate. Remaining lung vaz are clear. Head CT 01/17/17 00:00 IMPRESSION: Chronic ischemic changes. Assessment & Plan - Diagnosis (1) End stage renal disease Is this a current diagnosis for this admission?: YesPlan: We did dialysis today for 3 hours, using the patient's AV fistula, with 3 potassium bath, blood flow rate of 400 mL per minute, dialysate flow rate of 600 mL per minute, ultrafiltration 1-2 L, no heparin and no Procrit during dialysis. We will continue hemodialysis support. (2) Anemia in chronic kidney disease (CKD) Is this a current diagnosis for this admission?: YesPlan: Patient was transfused 2 units of packed RBC during dialysis treatment today. Patient tolerated transfusion. (3) Atrial fibrillation Qualifiers: Atrial fibrillation type: unspecified Qualified Code(s): I48.91 - Unspecified atrial fibrillation Is this a current diagnosis for this admission?: YesPlan: On anticoagulation. (4) Pneumonia Qualifiers: Pneumonia type: due to unspecified organism Laterality: right Lung location: unspecified part of lung Qualified Code(s): J18.9 - Pneumonia, unspecified organism Is this a current diagnosis for this admission?: YesPlan: Defer management to Dr. Garduno. Patient on Cefotan . Blood cultures so far negative. (5) Acute deep vein thrombosis (DVT) of left lower extremity Qualifiers: Affected thrombotic vein of extremity: femoral Qualified Code(s): I82.412 - Acute embolism and thrombosis of left femoral vein Is this a current diagnosis for this admission?: YesPlan: On anticoagulation. (6) Hypertension Qualifiers: Hypertension type: essential hypertension Qualified Code(s): I10 - Essential (primary) hypertension Is this a current diagnosis for this admission?: Yes (7) Metabolic encephalopathy Is this a current diagnosis for this admission?: YesPlan: Patient's mentation seems to have worsened starting yesterday. Head CT did not show any new changes. This could be due to acute infection versus acute DIRECTOR OF STRATEGIC COMMUNICATIONS event undetected and the CT scan. Dr. Garduno has discontinued her Seroquel and her Cymbalta is not being given. - Time Time with patient: 15-25 minutes
[2017-01-18] MEDS: ROPINIROLE HCL 0.25 MG TABLET PO SCH (21:48)
[2017-01-18] MEDS: ACETAMINOPHEN 325 MG TABLET PO SCH (21:48)
[2017-01-18] MEDS: WARFARIN SODIUM 3 MG TABLET PO SCH (21:48)
[2017-01-18] MEDS: DONEPEZIL HCL 5 MG TABLET PO SCH (21:49)
[2017-01-19 05:29] LABS: PROTHROMBIN TIME 21.9 SEC (11.4-15.4)
[2017-01-19] MEDS: CLONIDINE HCL 0.1 MG TABLET PO SCH ×3 (06:08→22:08)
[2017-01-19] MEDS: MEMANTINE HCL 10 MG TABLET PO SCH ×2 (10:36→18:47)
[2017-01-19] MEDS: AMLODIPINE BESYLATE 5 MG TABLET PO SCH ×2 (10:36→22:07)
[2017-01-19] MEDS: DOCUSATE SODIUM 100 MG CAPSULE PO SCH (10:36)
[2017-01-19] MEDS: FOLIC ACID/VITAMIN B COMP W-C CAPSULE PO SCH (10:36)
[2017-01-19] MEDS: SEVELAMER HCL 400 MG TABLET PO SCH ×3 (10:37→16:03)
[2017-01-19] MEDS: CINACALCET HCL 30 MG TABLET PO SCH (10:38)
[2017-01-19] MEDS: CEFEPIME 1 GM/D5W RTU 1 GM/50 ML RTUPB IV SCH ×2 (10:43→22:08)
[2017-01-19] MEDS: INSULIN GLARGINE,HUM.REC.ANLOG 300 UNIT/3 ML INSULN.PEN SUBCUT SCH (10:43)
--- NOTE | 2017-01-19 16:28 | PDOC PROGRESS REPORT ---
Subjective Progress Note for:: 01/19/17 Subjective:: Patient was seen by the bedside, she is more alert and oriented and responsive. She had severe constipation and she was effectively treated today Physical Exam Vital Signs: Temp Pulse Resp BP Pulse Ox 97.6 F 84 14 160/52 H 100 01/19/17 12:00 01/19/17 14:00 01/19/17 12:00 01/19/17 12:00 01/19/17 12:00 Intake & Output 01/18/17 01/19/17 01/20/17 06:59 06:59 06:59 Intake Total 351 1291 Output Total 1999 Balance 351 -709 Weight 64.8 kg 62.8 kg Head exam: PRESENT: atraumatic, normocephalic Eye exam: PRESENT: conjunctiva pink, EOMI, PERRLA Neck exam: PRESENT: full ROM Respiratory exam: PRESENT: crackles Cardiovascular exam: PRESENT: RRR, +S1, +S2 Vascular exam: PRESENT: normal capillary refill GI/Abdominal exam: PRESENT: normal bowel sounds, soft Rectal exam: PRESENT: deferred Neurological exam: PRESENT: alert Skin exam: PRESENT: dry, intact, warm Results Laboratory Results: 01/18/17 04:54 01/18/17 04:54 01/15/17 01/15/17 01/15/17 09:09 09:09 15:34 Creatine Kinase 137 H 281 H Troponin I 0.042 01/15/17 01/15/17 01/15/17 15:34 21:20 21:20 Creatine Kinase 307 H Troponin I 0.053 0.063 Impressions: Chest CT 01/15/17 00:00 IMPRESSION: Trace bilateral pleural effusions Bibasilar consolidation in the posterior costophrenic sulci atelectasis versus pneumonia Fluffy ground-glass opacities in the bilateral upper lobes, pneumonia versus edema. Chest X-Ray 01/15/17 02:33 IMPRESSION: Right basilar density is noted above most consistent with a pneumonic infiltrate. Remaining lung vaz are clear. Head CT 01/18/17 00:00 IMPRESSION: NO ACUTE INTRACRANIAL PROCESS. NO SIGNIFICANT CHANGE FROM PRIOR STUDIES. Assessment & Plan - Diagnosis (1) Bilateral pneumonia Qualifiers: Pneumonia type: due to unspecified organism Lung location: unspecified part of lung Qualified Code(s): J18.9 - Pneumonia, unspecified organism Is this a current diagnosis for this admission?: Yes (2) End stage renal disease Is this a current diagnosis for this admission?: Yes (3) Hypertension Qualifiers: Hypertension type: essential hypertension Qualified Code(s): I10 - Essential (primary) hypertension Is this a current diagnosis for this admission?: Yes (4) Type 2 diabetes mellitus Qualifiers: Diabetes mellitus complication status: with kidney complications Diabetes mellitus complication detail: with chronic kidney disease Diabetes mellitus group home insulin use: with rat exterminator use Chronic kidney disease stage: on chronic dialysis Qualified Code(s): E11.22 - Type 2 diabetes mellitus with diabetic chronic kidney disease; N18.1 - Chronic kidney disease, stage 1; Z79.4 - watermelon harvesting supervisor (current) use of insulin Is this a current diagnosis for this admission?: Yes (5) Metabolic encephalopathy Is this a current diagnosis for this admission?: Yes - Plan Summary Plan Summary: She will continue IV antibiotic
[2017-01-19] MEDS: DONEPEZIL HCL 5 MG TABLET PO SCH (22:07)
[2017-01-19] MEDS: ROPINIROLE HCL 0.25 MG TABLET PO SCH (22:07)
[2017-01-19] MEDS: WARFARIN SODIUM 3 MG TABLET PO SCH (22:08)
[2017-01-19] MEDS: ACETAMINOPHEN 325 MG TABLET PO SCH (22:09)
[2017-01-20] MEDS: CLONIDINE HCL 0.1 MG TABLET PO SCH ×3 (06:46→21:35)
[2017-01-20] MEDS: FOLIC ACID/VITAMIN B COMP W-C CAPSULE PO SCH (10:33)
[2017-01-20] MEDS: SEVELAMER HCL 400 MG TABLET PO SCH ×3 (10:34→18:04)
[2017-01-20] MEDS: MEMANTINE HCL 10 MG TABLET PO SCH ×2 (10:36→18:06)
[2017-01-20] MEDS: DOCUSATE SODIUM 100 MG CAPSULE PO SCH (10:36)
[2017-01-20] MEDS: AMLODIPINE BESYLATE 5 MG TABLET PO SCH ×2 (10:36→21:35)
[2017-01-20] MEDS: CINACALCET HCL 30 MG TABLET PO SCH (10:37)
[2017-01-20] MEDS: CEFEPIME 1 GM/D5W RTU 1 GM/50 ML RTUPB IV SCH ×2 (10:39→21:37)
[2017-01-20] MEDS: INSULIN GLARGINE,HUM.REC.ANLOG 300 UNIT/3 ML INSULN.PEN SUBCUT SCH (10:39)
--- NOTE | 2017-01-20 16:03 | PDOC PROGRESS REPORT ---
Subjective Progress Note for:: 01/20/17 Subjective:: Patient's condition is about the same, she is scheduled for hemodialysis tomorrow Physical Exam Vital Signs: Temp Pulse Resp BP Pulse Ox 97.9 F 74 16 123/60 100 01/20/17 11:05 01/20/17 14:00 01/20/17 11:05 01/20/17 11:05 01/20/17 11:05 Intake & Output 01/19/17 01/20/17 01/21/17 06:59 06:59 06:59 Intake Total 1291 856 0 Output Total 2000 0 Balance -709 856 0 Weight 62.8 kg 62.2 kg Head exam: PRESENT: atraumatic, normocephalic Neck exam: PRESENT: full ROM Respiratory exam: PRESENT: crackles Cardiovascular exam: PRESENT: RRR, +S1, +S2 Pulses: PRESENT: normal dorsalis pedis pul, +2 pedal pulses bilateral Vascular exam: PRESENT: normal capillary refill GI/Abdominal exam: PRESENT: normal bowel sounds, soft Rectal exam: PRESENT: deferred Neurological exam: PRESENT: alert Results Laboratory Results: 01/18/17 04:54 01/18/17 04:54 01/15/17 01/15/17 01/15/17 09:09 09:09 15:34 Creatine Kinase 137 H 281 H Troponin I 0.042 01/15/17 01/15/17 01/15/17 15:34 21:20 21:20 Creatine Kinase 307 H Troponin I 0.053 0.063 Impressions: Chest CT 01/15/17 00:00 IMPRESSION: Trace bilateral pleural effusions Bibasilar consolidation in the posterior costophrenic sulci atelectasis versus pneumonia Fluffy ground-glass opacities in the bilateral upper lobes, pneumonia versus edema. Chest X-Ray 01/15/17 02:33 IMPRESSION: Right basilar density is noted above most consistent with a pneumonic infiltrate. Remaining lung vaz are clear. Head CT 01/18/17 00:00 IMPRESSION: NO ACUTE INTRACRANIAL PROCESS. NO SIGNIFICANT CHANGE FROM PRIOR STUDIES. Assessment & Plan - Diagnosis (1) Bilateral pneumonia Qualifiers: Pneumonia type: due to unspecified organism Lung location: unspecified part of lung Qualified Code(s): J18.9 - Pneumonia, unspecified organism Is this a current diagnosis for this admission?: Yes (2) End stage renal disease Is this a current diagnosis for this admission?: Yes (3) Hypertension Qualifiers: Hypertension type: essential hypertension Qualified Code(s): I10 - Essential (primary) hypertension Is this a current diagnosis for this admission?: Yes (4) Type 2 diabetes mellitus Qualifiers: Diabetes mellitus complication status: with kidney complications Diabetes mellitus complication detail: with chronic kidney disease Diabetes mellitus terminal gauger insulin use: with terminal gauger use Chronic kidney disease stage: on chronic dialysis Qualified Code(s): E11.22 - Type 2 diabetes mellitus with diabetic chronic kidney disease; N18.1 - Chronic kidney disease, stage 1; Z79.4 - assisted (current) use of insulin Is this a current diagnosis for this admission?: Yes (5) Metabolic encephalopathy Is this a current diagnosis for this admission?: Yes - Plan Summary Plan Summary: Patient mental status is fluctuating, the nurses said she was lethargic earlier this morning when I saw her she was alert oriented
[2017-01-20] MEDS: WARFARIN SODIUM 3 MG TABLET PO SCH (21:34)
[2017-01-20] MEDS: ACETAMINOPHEN 325 MG TABLET PO SCH (21:34)
[2017-01-20] MEDS: DONEPEZIL HCL 5 MG TABLET PO SCH (21:35)
[2017-01-20] MEDS: ROPINIROLE HCL 0.25 MG TABLET PO SCH (21:35)
[2017-01-21 04:55] LABS: ABSOLUTE EOSINOPHILS # (AUTO) 0.2 10^3/uL (0.0-0.6); ABSOLUTE LYMPHOCYTES (AUTO) 1.1 10^3/uL (0.5-4.7); ABSOLUTE MONOCYTES (AUTO) 0.4 10^3/uL (0.1-1.4); ABSOLUTE NEUT (AUTO) 3.8 10^3/uL (1.7-8.2); BASOPHILS % (AUTO) 0.8 % (0-2); EOSINOPHILS % (AUTO) 3.2 % (0-6); HEMATOCRIT 30.3 % (36.0-47.0); HEMOGLOBIN 10.9 g/dL (12.0-15.5); HGB HCT DIFFERENCE 2.4; LYMPHOCYTES % (AUTO) 19.9 % (13-45); MEAN CORPUSCULAR HEMOGLOBIN 30.6 pg (27.0-33.4); MEAN CORPUSCULAR VOLUME 85 fl (80-97); MONOCYTES % (AUTO) 7.9 % (3-13); RED BLOOD COUNT 3.56 10^6/uL (3.72-5.28); RED CELL DISTRIBUTION WIDTH 15.7 % (11.5-14.0); SEGMENTED NEUTROPHILS % (AUTO) 68.2 % (42-78); WHITE BLOOD COUNT 5.6 10^3/uL (4.0-10.5)
[2017-01-21] MEDS: CLONIDINE HCL 0.1 MG TABLET PO SCH ×3 (05:03→21:29)
[2017-01-21 05:18] LABS: ANION GAP 12 (5-19); BLOOD UREA NITROGEN 65 mg/dL (7-20); CALCIUM 8.6 mg/dL (8.4-10.2); CARBON DIOXIDE 23 mmol/L (22-30); CHLORIDE 102 mmol/L (98-107); CREATININE RESULT 4.25 mg/dL (0.52-1.25); GLUCOSE 125 mg/dL (75-110); POTASSIUM 3.9 mmol/L (3.6-5.0)
[2017-01-21] MEDS: FOLIC ACID/VITAMIN B COMP W-C CAPSULE PO SCH (12:11)
[2017-01-21] MEDS: INSULIN GLARGINE,HUM.REC.ANLOG 300 UNIT/3 ML INSULN.PEN SUBCUT SCH (12:11)
[2017-01-21] MEDS: SEVELAMER HCL 400 MG TABLET PO SCH ×3 (12:11→17:09)
[2017-01-21] MEDS: DOCUSATE SODIUM 100 MG CAPSULE PO SCH (12:11)
[2017-01-21] MEDS: AMLODIPINE BESYLATE 5 MG TABLET PO SCH ×2 (12:11→21:29)
[2017-01-21] MEDS: MEMANTINE HCL 10 MG TABLET PO SCH ×2 (12:11→17:09)
[2017-01-21] MEDS: CINACALCET HCL 30 MG TABLET PO SCH (12:11)
[2017-01-21] MEDS: CEFEPIME 1 GM/D5W RTU 1 GM/50 ML RTUPB IV SCH ×2 (12:11→21:28)
--- NOTE | 2017-01-21 20:05 | PDOC PROGRESS REPORT ---
Subjective Progress Note for:: 01/21/17 Subjective:: I saw the patient this morning at around 8:30 AM during dialysis treatment. Patient is more awake and is communicating better compared to last Saturday. She is tolerating dialysis currently. She complains of left leg pain where she had a DVT recently. No other new complaints. Physical Exam Vital Signs: Temp Pulse Resp BP Pulse Ox 97.9 F 78 18 142/55 H 100 01/21/17 12:45 01/21/17 14:00 01/21/17 12:45 01/21/17 12:45 01/21/17 12:45 Intake & Output 01/20/17 01/21/17 01/22/17 06:59 06:59 06:59 Intake Total 856 628 390 Output Total 0 0 Balance 856 628 390 Weight 62.2 kg 62 kg Exam: General appearance: PRESENT: no acute distress, cooperative, well-developed, well-nourished Head exam: PRESENT: atraumatic, normocephalic Eye exam: PRESENT: conjunctiva slightly pale, PERRLA. ABSENT: scleral icterus Neck exam: ABSENT: JVD Respiratory exam: PRESENT: Diminished breath sounds. ABSENT: crackles, rales, rhonchi, unlabored, wheezes Cardiovascular exam: PRESENT: Irregular rate rhythm -+S1, +S2. ABSENT: diastolic murmur, systolic murmur GI/Abdominal exam: PRESENT: normal bowel sounds, soft. ABSENT: guarding, mass, tenderness Extremities exam: ABSENT: No edema Neurological exam: PRESENT: alert, awake, oriented to person, place and time. Skin exam: PRESENT: dry, warm, Results Laboratory Results: 01/21/17 03:41 01/21/17 03:41 01/21/17 01/21/17 03:41 03:41 WBC 5.6 RBC 3.56 L Hgb 10.9 L Hct 30.3 L MCV 85 MCH 30.6 MCHC 36.0 RDW 15.7 H Plt Count 125 L Seg Neutrophils % 68.2 Lymphocytes % 19.9 Monocytes % 7.9 Eosinophils % 3.2 Basophils % 0.8 Absolute Neutrophils 3.8 Absolute Lymphocytes 1.1 Absolute Monocytes 0.4 Absolute Eosinophils 0.2 Absolute Basophils 0.0 Sodium 137.0 Potassium 3.9 Chloride 102 Carbon Dioxide 23 Anion Gap 12 BUN 65 H Creatinine 4.25 H Est GFR ( Amer) 12 L Est GFR (Non-Af Amer) 10 L Glucose 125 H Calcium 8.6 01/15/17 01/15/17 01/15/17 09:09 09:09 15:34 Creatine Kinase 137 H 281 H Troponin I 0.042 01/15/17 01/15/17 01/15/17 15:34 21:20 21:20 Creatine Kinase 307 H Troponin I 0.053 0.063 Impressions: Chest CT 01/15/17 00:00 IMPRESSION: Trace bilateral pleural effusions Bibasilar consolidation in the posterior costophrenic sulci atelectasis versus pneumonia Fluffy ground-glass opacities in the bilateral upper lobes, pneumonia versus edema. Chest X-Ray 01/15/17 02:33 IMPRESSION: Right basilar density is noted above most consistent with a pneumonic infiltrate. Remaining lung vaz are clear. Head CT 01/18/17 00:00 IMPRESSION: NO ACUTE INTRACRANIAL PROCESS. NO SIGNIFICANT CHANGE FROM PRIOR STUDIES. Assessment & Plan - Diagnosis (1) End stage renal disease Is this a current diagnosis for this admission?: YesPlan: We will do dialysis today for 3 hours, using the patient's AV fistula, with 3 potassium bath, blood flow rate of 350-500 mL per minute, dialysate flow rate of 600 mL per minute, ultrafiltration 1-1.5, no heparin and no Procrit during dialysis. Patient tolerated dialysis. (2) Anemia in chronic kidney disease (CKD) Is this a current diagnosis for this admission?: YesPlan: Patient was transfused 2 units of packed RBC last week. We will give Procrit when necessary. (3) Atrial fibrillation Qualifiers: Atrial fibrillation type: unspecified Qualified Code(s): I48.91 - Unspecified atrial fibrillation Is this a current diagnosis for this admission?: YesPlan: On anticoagulation. (4) Pneumonia Qualifiers: Pneumonia type: due to unspecified organism Laterality: right Lung location: unspecified part of lung Qualified Code(s): J18.9 - Pneumonia, unspecified organism Is this a current diagnosis for this admission?: YesPlan: Defer management to Dr. Garduno. Patient on Cefotan . Blood cultures so far negative. (5) Acute deep vein thrombosis (DVT) of left lower extremity Qualifiers: Affected thrombotic vein of extremity: femoral Qualified Code(s): I82.412 - Acute embolism and thrombosis of left femoral vein Is this a current diagnosis for this admission?: YesPlan: On anticoagulation. (6) Hypertension Qualifiers: Hypertension type: essential hypertension Qualified Code(s): I10 - Essential (primary) hypertension Is this a current diagnosis for this admission?: Yes (7) Metabolic encephalopathy Is this a current diagnosis for this admission?: YesPlan: Much improved today. - Time Time with patient: 15-25 minutes
--- NOTE | 2017-01-21 20:09 | PDOC PROGRESS REPORT ---
Subjective Progress Note for:: 01/21/17 Subjective:: She was seen today by the bedside she is alert Physical Exam Vital Signs: Temp Pulse Resp BP Pulse Ox 97.9 F 78 18 142/55 H 100 01/21/17 12:45 01/21/17 14:00 01/21/17 12:45 01/21/17 12:45 01/21/17 12:45 Intake & Output 01/20/17 01/21/17 01/22/17 06:59 06:59 06:59 Intake Total 856 628 390 Output Total 0 0 Balance 856 628 390 Weight 62.2 kg 62 kg General appearance: PRESENT: no acute distress Eye exam: PRESENT: PERRLA Respiratory exam: PRESENT: rhonchi Cardiovascular exam: PRESENT: +S1, +S2 Results Laboratory Results: 01/21/17 03:41 01/21/17 03:41 01/21/17 01/21/17 03:41 03:41 WBC 5.6 RBC 3.56 L Hgb 10.9 L Hct 30.3 L MCV 85 MCH 30.6 MCHC 36.0 RDW 15.7 H Plt Count 125 L Seg Neutrophils % 68.2 Lymphocytes % 19.9 Monocytes % 7.9 Eosinophils % 3.2 Basophils % 0.8 Absolute Neutrophils 3.8 Absolute Lymphocytes 1.1 Absolute Monocytes 0.4 Absolute Eosinophils 0.2 Absolute Basophils 0.0 Sodium 137.0 Potassium 3.9 Chloride 102 Carbon Dioxide 23 Anion Gap 12 BUN 65 H Creatinine 4.25 H Est GFR ( Amer) 12 L Est GFR (Non-Af Amer) 10 L Glucose 125 H Calcium 8.6 01/15/17 01/15/17 01/15/17 09:09 09:09 15:34 Creatine Kinase 137 H 281 H Troponin I 0.042 01/15/17 01/15/17 01/15/17 15:34 21:20 21:20 Creatine Kinase 307 H Troponin I 0.053 0.063 Impressions: Chest CT 01/15/17 00:00 IMPRESSION: Trace bilateral pleural effusions Bibasilar consolidation in the posterior costophrenic sulci atelectasis versus pneumonia Fluffy ground-glass opacities in the bilateral upper lobes, pneumonia versus edema. Chest X-Ray 01/15/17 02:33 IMPRESSION: Right basilar density is noted above most consistent with a pneumonic infiltrate. Remaining lung vaz are clear. Head CT 01/18/17 00:00 IMPRESSION: NO ACUTE INTRACRANIAL PROCESS. NO SIGNIFICANT CHANGE FROM PRIOR STUDIES. Assessment & Plan - Diagnosis (1) Bilateral pneumonia Qualifiers: Pneumonia type: due to unspecified organism Lung location: unspecified part of lung Qualified Code(s): J18.9 - Pneumonia, unspecified organism Is this a current diagnosis for this admission?: Yes (2) End stage renal disease Is this a current diagnosis for this admission?: Yes (3) Hypertension Qualifiers: Hypertension type: essential hypertension Qualified Code(s): I10 - Essential (primary) hypertension Is this a current diagnosis for this admission?: Yes (4) Type 2 diabetes mellitus Qualifiers: Diabetes mellitus complication status: with kidney complications Diabetes mellitus complication detail: with chronic kidney disease Diabetes mellitus fci insulin use: with fci use Chronic kidney disease stage: on chronic dialysis Qualified Code(s): E11.22 - Type 2 diabetes mellitus with diabetic chronic kidney disease; N18.1 - Chronic kidney disease, stage 1; Z79.4 - senior care (current) use of insulin Is this a current diagnosis for this admission?: Yes (5) Metabolic encephalopathy Is this a current diagnosis for this admission?: Yes
[2017-01-21] MEDS: DONEPEZIL HCL 5 MG TABLET PO SCH (21:29)
[2017-01-21] MEDS: ACETAMINOPHEN 325 MG TABLET PO SCH (21:29)
[2017-01-21] MEDS: ROPINIROLE HCL 0.25 MG TABLET PO SCH (21:29)
[2017-01-21] MEDS: WARFARIN SODIUM 3 MG TABLET PO SCH (21:29)
[2017-01-22] MEDS: CLONIDINE HCL 0.1 MG TABLET PO SCH ×3 (05:03→21:34)
[2017-01-22] MEDS: SEVELAMER HCL 400 MG TABLET PO SCH ×3 (09:08→17:59)
[2017-01-22] MEDS: DOCUSATE SODIUM 100 MG CAPSULE PO SCH (09:09)
[2017-01-22] MEDS: FOLIC ACID/VITAMIN B COMP W-C CAPSULE PO SCH (09:10)
[2017-01-22] MEDS: MEMANTINE HCL 10 MG TABLET PO SCH ×2 (09:10→17:59)
[2017-01-22] MEDS: AMLODIPINE BESYLATE 5 MG TABLET PO SCH ×2 (09:10→21:34)
[2017-01-22] MEDS: INSULIN GLARGINE,HUM.REC.ANLOG 300 UNIT/3 ML INSULN.PEN SUBCUT SCH (09:11)
[2017-01-22] MEDS: CINACALCET HCL 30 MG TABLET PO SCH (09:11)
[2017-01-22] MEDS: CEFEPIME 1 GM/D5W RTU 1 GM/50 ML RTUPB IV SCH (11:34)
--- NOTE | 2017-01-22 20:56 | PDOC PROGRESS REPORT ---
Subjective Progress Note for:: 01/22/17 Subjective:: She was seen by the bedside she feels much better Physical Exam Vital Signs: Temp Pulse Resp BP Pulse Ox 98.3 F 81 16 144/50 H 98 01/22/17 19:44 01/22/17 19:44 01/22/17 19:44 01/22/17 19:44 01/22/17 19:44 Intake & Output 01/21/17 01/22/17 01/23/17 06:59 06:59 06:59 Intake Total 270 188 3195 Output Total 1200 Balance 628 -740 1007 Weight 62 kg 65.2 kg General appearance: PRESENT: no acute distress Eye exam: PRESENT: PERRLA Respiratory exam: PRESENT: clear to auscultation korina Cardiovascular exam: PRESENT: +S1, +S2 GI/Abdominal exam: PRESENT: soft Neurological exam: PRESENT: alert Results Laboratory Results: 01/21/17 03:41 01/21/17 03:41 01/15/17 01/15/17 01/15/17 09:09 09:09 15:34 Creatine Kinase 137 H 281 H Troponin I 0.042 01/15/17 01/15/17 01/15/17 15:34 21:20 21:20 Creatine Kinase 307 H Troponin I 0.053 0.063 Impressions: Chest CT 01/15/17 00:00 IMPRESSION: Trace bilateral pleural effusions Bibasilar consolidation in the posterior costophrenic sulci atelectasis versus pneumonia Fluffy ground-glass opacities in the bilateral upper lobes, pneumonia versus edema. Chest X-Ray 01/15/17 02:33 IMPRESSION: Right basilar density is noted above most consistent with a pneumonic infiltrate. Remaining lung vaz are clear. Head CT 01/18/17 00:00 IMPRESSION: NO ACUTE INTRACRANIAL PROCESS. NO SIGNIFICANT CHANGE FROM PRIOR STUDIES. Assessment & Plan - Diagnosis (1) Bilateral pneumonia Qualifiers: Pneumonia type: due to unspecified organism Lung location: unspecified part of lung Qualified Code(s): J18.9 - Pneumonia, unspecified organism Is this a current diagnosis for this admission?: Yes (2) End stage renal disease Is this a current diagnosis for this admission?: Yes (3) Hypertension Qualifiers: Hypertension type: essential hypertension Qualified Code(s): I10 - Essential (primary) hypertension Is this a current diagnosis for this admission?: Yes (4) Type 2 diabetes mellitus Qualifiers: Diabetes mellitus complication status: with kidney complications Diabetes mellitus complication detail: with chronic kidney disease Diabetes mellitus mcfp insulin use: 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
[2017-01-22] MEDS: ACETAMINOPHEN 325 MG TABLET PO SCH (21:33)
[2017-01-22] MEDS: ROPINIROLE HCL 0.25 MG TABLET PO SCH (21:33)
[2017-01-22] MEDS: WARFARIN SODIUM 3 MG TABLET PO SCH (21:34)
[2017-01-22] MEDS: DONEPEZIL HCL 5 MG TABLET PO SCH (21:34)
[2017-01-23] MEDS: CLONIDINE HCL 0.1 MG TABLET PO SCH ×2 (05:08→14:50)
[2017-01-23 05:09] LABS: ABSOLUTE BASOPHILS # (AUTO) 0.1 10^3/uL (0.0-0.2); ABSOLUTE EOSINOPHILS # (AUTO) 0.1 10^3/uL (0.0-0.6); ABSOLUTE LYMPHOCYTES (AUTO) 1.6 10^3/uL (0.5-4.7); ABSOLUTE MONOCYTES (AUTO) 0.7 10^3/uL (0.1-1.4); ABSOLUTE NEUT (AUTO) 4.6 10^3/uL (1.7-8.2); BASOPHILS % (AUTO) 0.9 % (0-2); EOSINOPHILS % (AUTO) 2.1 % (0-6); HEMATOCRIT 31.2 % (36.0-47.0); HEMOGLOBIN 11.3 g/dL (12.0-15.5); HGB HCT DIFFERENCE 2.7; LYMPHOCYTES % (AUTO) 22.7 % (13-45); MEAN CORPUSCULAR HEMOGLOBIN 30.9 pg (27.0-33.4); MEAN CORPUSCULAR HGB CONC 36.2 g/dL (32.0-36.0); MEAN CORPUSCULAR VOLUME 85 fl (80-97); MONOCYTES % (AUTO) 9.3 % (3-13); RED BLOOD COUNT 3.66 10^6/uL (3.72-5.28); RED CELL DISTRIBUTION WIDTH 15.4 % (11.5-14.0); WHITE BLOOD COUNT 7.1 10^3/uL (4.0-10.5)
[2017-01-23 05:34] LABS: ANION GAP 16 (5-19); BLOOD UREA NITROGEN 58 mg/dL (7-20); CALCIUM 9.1 mg/dL (8.4-10.2); CARBON DIOXIDE 22 mmol/L (22-30); CHLORIDE 99 mmol/L (98-107); CREATININE RESULT 3.66 mg/dL (0.52-1.25); GLUCOSE 108 mg/dL (75-110); POTASSIUM 3.8 mmol/L (3.6-5.0); SODIUM 136.9 mmol/L (137-145)
[2017-01-23] MEDS: SEVELAMER HCL 400 MG TABLET PO SCH ×3 (09:15→17:12)
[2017-01-23] MEDS: AMLODIPINE BESYLATE 5 MG TABLET PO SCH (12:54)
[2017-01-23] MEDS: MEMANTINE HCL 10 MG TABLET PO SCH ×2 (12:54→17:12)
[2017-01-23] MEDS: INSULIN GLARGINE,HUM.REC.ANLOG 300 UNIT/3 ML INSULN.PEN SUBCUT SCH (13:04)
[2017-01-23] MEDS: DOCUSATE SODIUM 100 MG CAPSULE PO SCH (13:05)
[2017-01-23] MEDS: FOLIC ACID/VITAMIN B COMP W-C CAPSULE PO SCH (13:05)
[2017-01-23] MEDS: CINACALCET HCL 30 MG TABLET PO SCH (13:06)
--- NOTE | 2017-01-23 16:45 | PDOC TRANSFER SUMMARY ---
General - Admit/Disc Date/PCP Admission Date/Primary Care Provider: 01/15/17 08:11 NOEMÍ Smith KATIUSKA, Discharge Date: 01/23/17 - Discharge Diagnosis (1) Bilateral pneumonia Is this a current diagnosis for this admission?: Yes (2) End stage renal disease Is this a current diagnosis for this admission?: Yes (3) Hypertension Is this a current diagnosis for this admission?: Yes (4) Type 2 diabetes mellitus Is this a current diagnosis for this admission?: Yes (5) Metabolic encephalopathy Is this a current diagnosis for this admission?: Yes - Additional Information Resuscitation Status: Full Code Home Medications: Acetaminophen [Tylenol 325 mg Tablet] 650 mg PO Q6HP PRN 01/15/17 Acetaminophen [Tylenol 325 mg Tablet] 650 mg PO QHS 01/15/17 Amlodipine Besylate [Norvasc 5 mg Tablet] 5 mg PO Q12 01/15/17 B Complex & C No.20/Folic Acid [Nephrocaps Softgel] 1 mg PO DAILY 01/15/17 Cinacalcet HCl [Sensipar 30 mg Tablet] 30 mg PO DAILY 01/15/17 Clonidine HCl [Catapres 0.1 mg Tablet] 0.1 mg PO Q8 01/15/17 Docusate Sodium [Colace 100 mg Capsule] 100 mg PO DAILY 01/15/17 Donepezil HCl [Aricept] 10 mg PO QHS 01/15/17 Duloxetine HCl [Cymbalta] 60 mg PO DAILY 01/15/17 Fexofenadine HCl [Zenaida Allergy] 180 mg PO DAILYP PRN 01/15/17 Insulin Aspart [Novolog Insulin (Aspart) 100 unit/mL] 0 unit SQ .PERSLIDINGSCALE 01/15/17 Insulin Glargine,Hum.rec.anlog [Lantus] 10 unit SQ DAILY 01/15/17 Melatonin 3 mg PO QHS 01/15/17 Memantine HCl [Namenda 10 mg Tablet] 10 mg PO BID 01/15/17 Nitroglycerin [Nitrostat] 0.4 mg SL Q5MP PRN 01/15/17 Ondansetron HCl [Zofran 4 mg Tablet] 4 mg PO Q6HP PRN 01/15/17 Quetiapine Fumarate [Seroquel 25 mg Tablet] 25 mg PO QHS 01/15/17 Ropinirole HCl [Requip] 0.5 mg PO DAILY 01/15/17 Sevelamer Carbonate [Renvela] 1,600 mg PO MEALS 01/15/17 Warfarin Sodium [Coumadin] 6 mg PO QHS 01/15/17 Memantine HCl [Namenda 10 mg Tablet] 10 mg PO BID #0 tablet 01/23/17 Nitroglycerin [Nitrostat 0.4 mg (1/150 Gr) Tabs 25/Bottle] 1 tab SL Q5MP PRN #0 bottle 01/23/17 Sevelamer HCl [Renagel 400 mg Tablet] 1,600 mg PO MEALS #0 tablet 01/23/17 Warfarin Sodium [Coumadin 3 mg Tablet] 6 mg PO QHS #0 tablet 01/23/17 History of Present Illness Admission Date/PCP: 01/15/17 08:11 NOEMÍ HARP, History of Present Illness: JORGE LUIS WATERS is a 81 year old female I saw her in the [facility] on Saturday on rounds at the time she was coughing and wheezing, she was evaluated in the [facility] chest x-ray was done that suggest pneumonia, she was started on antibiotic, Levaquin, her condition continues to deteriorate and she was transferred to the emergency room for evaluation. She had CT chest done showed consolidation in the posterior left lower lobe, right upper lobe and left upper lobe patchy areas of ground glass opacity are present. She was recently admitted and managed for extensive deep vein thrombosis of the left lower extremities and she was transferred back to the [facility] on December 20, 2016 she has end-stage renal disease on maintenance hemodialysis, consultation will be obtained from [employer] manager Dr. Pascual. Hospital Course Hospital Course: She was admitted because of failed outpatient treatment for pneumonia and COPD, she was treated with IV antibiotic, vancomycin and Levaquin. She was seen by nephrology and she had hemodialysis in the hospital, she is end-stage renal disease on hemodialysis. Hospital course was complicated with encephalopathy CT head was done it was negative for any acute pathology. Patient improved significantly with treatment, she returns back to the [facility] for continued care Physical Exam Vital Signs: Temp Pulse Resp BP Pulse Ox 98.2 F 90 18 130/64 H 99 01/23/17 12:33 01/23/17 14:00 01/23/17 12:33 01/23/17 12:33 01/23/17 12:33 Intake & Output 01/22/17 01/23/17 01/24/17 06:59 06:59 06:59 Intake Total 460 1592 237 Output Total 1200 Balance -740 1592 237 Weight 65.2 kg 64.7 kg General appearance: PRESENT: no acute distress, well-developed, well-nourished Head exam: PRESENT: atraumatic, normocephalic Eye exam: PRESENT: conjunctiva pink, EOMI, PERRLA Ear exam: PRESENT: normal external ear exam Mouth exam: PRESENT: moist, tongue midline Respiratory exam: PRESENT: clear to auscultation korina Cardiovascular exam: PRESENT: RRR GI/Abdominal exam: PRESENT: normal bowel sounds, soft Rectal exam: PRESENT: deferred Extremities exam: PRESENT: full ROM Neurological exam: PRESENT: alert, CN II-XII grossly intact Psychiatric exam: PRESENT: appropriate affect, normal mood Skin exam: PRESENT: dry, intact, warm Results Laboratory Results: 01/23/17 04:15 01/23/17 04:15 01/23/17 01/23/17 04:15 04:15 WBC 7.1 RBC 3.66 L Hgb 11.3 L Hct 31.2 L MCV 85 MCH 30.9 MCHC 36.2 H RDW 15.4 H Plt Count 169 Seg Neutrophils % 65.0 Lymphocytes % 22.7 Monocytes % 9.3 Eosinophils % 2.1 Basophils % 0.9 Absolute Neutrophils 4.6 Absolute Lymphocytes 1.6 Absolute Monocytes 0.7 Absolute Eosinophils 0.1 Absolute Basophils 0.1 Sodium 136.9 L Potassium 3.8 Chloride 99 Carbon Dioxide 22 Anion Gap 16 BUN 58 H Creatinine 3.66 H Est GFR ( Amer) 14 L Est GFR (Non-Af Amer) 12 L Glucose 108 Calcium 9.1 01/15/17 01/15/17 01/15/17 09:09 09:09 15:34 Creatine Kinase 137 H 281 H Troponin I 0.042 01/15/17 01/15/17 01/15/17 15:34 21:20 21:20 Creatine Kinase 307 H Troponin I 0.053 0.063 Impressions: Chest CT 01/15/17 00:00 IMPRESSION: Trace bilateral pleural effusions Bibasilar consolidation in the posterior costophrenic sulci atelectasis versus pneumonia Fluffy ground-glass opacities in the bilateral upper lobes, pneumonia versus edema. Chest X-Ray 01/15/17 02:33 IMPRESSION: Right basilar density is noted above most consistent with a pneumonic infiltrate. Remaining lung vaz are clear. Head CT 01/18/17 00:00 IMPRESSION: NO ACUTE INTRACRANIAL PROCESS. NO SIGNIFICANT CHANGE FROM PRIOR STUDIES.
[2017-01-23 17:44] LABS: PROTHROMBIN TIME 20.8 SEC (11.4-15.4)
[2017-01-23 18:46] VITALS: BP 142/61
--- NOTE | 2017-01-23 20:50 | PDOC PROGRESS REPORT ---
Subjective Progress Note for:: 01/23/17 Subjective:: I saw patient at around 8:55 AM during dialysis treatment. She seems to be at her usual baseline state. She was well awake and alert and communicative. She tolerated dialysis well without any problems or issues. Physical Exam Vital Signs: Temp Pulse Resp BP Pulse Ox 98.5 F 68 20 142/61 H 100 01/23/17 17:34 01/23/17 17:34 01/23/17 17:34 01/23/17 17:34 01/23/17 17:34 Intake & Output 01/22/17 01/23/17 01/24/17 06:59 06:59 06:59 Intake Total 460 1592 365 Output Total 1200 1800 Balance -740 1592 -1435 Weight 65.2 kg 64.7 kg Vital signs during dialysis: Blood pressure 121/62, heart rate of 81, blood flow rate of 400 mL per minute, and dialysate flow rate of 600 mL per minute. Exam: General appearance: PRESENT: no acute distress, cooperative, well-developed, well-nourished Head exam: PRESENT: atraumatic, normocephalic Eye exam: PRESENT: conjunctiva pink, PERRLA. ABSENT: scleral icterus Neck exam: ABSENT: JVD Respiratory exam: PRESENT: Diminished breath sounds. ABSENT: crackles, rales, rhonchi, unlabored, wheezes Cardiovascular exam: PRESENT: Regular rate rhythm -+S1, +S2. Grade 2/6 systolic ejection murmur ABSENT: diastolic murmur GI/Abdominal exam: PRESENT: normal bowel sounds, soft. ABSENT: guarding, mass, tenderness Extremities exam: ABSENT: No edema Neurological exam: PRESENT: alert, awake, oriented to person, place and time. Skin exam: PRESENT: dry, warm, Results Laboratory Results: 01/23/17 04:15 01/23/17 04:15 01/23/17 01/23/17 04:15 04:15 WBC 7.1 RBC 3.66 L Hgb 11.3 L Hct 31.2 L MCV 85 MCH 30.9 MCHC 36.2 H RDW 15.4 H Plt Count 169 Seg Neutrophils % 65.0 Lymphocytes % 22.7 Monocytes % 9.3 Eosinophils % 2.1 Basophils % 0.9 Absolute Neutrophils 4.6 Absolute Lymphocytes 1.6 Absolute Monocytes 0.7 Absolute Eosinophils 0.1 Absolute Basophils 0.1 Sodium 136.9 L Potassium 3.8 Chloride 99 Carbon Dioxide 22 Anion Gap 16 BUN 58 H Creatinine 3.66 H Est GFR ( Amer) 14 L Est GFR (Non-Af Amer) 12 L Glucose 108 Calcium 9.1 01/15/17 01/15/17 01/15/17 09:09 09:09 15:34 Creatine Kinase 137 H 281 H Troponin I 0.042 01/15/17 01/15/17 01/15/17 15:34 21:20 21:20 Creatine Kinase 307 H Troponin I 0.053 0.063 Impressions: Chest CT 01/15/17 00:00 IMPRESSION: Trace bilateral pleural effusions Bibasilar consolidation in the posterior costophrenic sulci atelectasis versus pneumonia Fluffy ground-glass opacities in the bilateral upper lobes, pneumonia versus edema. Chest X-Ray 01/15/17 02:33 IMPRESSION: Right basilar density is noted above most consistent with a pneumonic infiltrate. Remaining lung vaz are clear. Head CT 01/18/17 00:00 IMPRESSION: NO ACUTE INTRACRANIAL PROCESS. NO SIGNIFICANT CHANGE FROM PRIOR STUDIES. Assessment & Plan - Diagnosis (1) End stage renal disease Is this a current diagnosis for this admission?: YesPlan: We did dialysis today for 3 hours, using the patient's AV fistula, with 2 potassium bath, blood flow rate of 350-500 mL per minute, dialysate flow rate of 600 mL per minute, ultrafiltration 1 L, no heparin and no Procrit during dialysis. Patient tolerated dialysis without any problems. (2) Anemia in chronic kidney disease (CKD) Is this a current diagnosis for this admission?: YesPlan: Patient was transfused 2 units of packed RBC last week. We will give Procrit when necessary. No need of Procrit today. (3) Atrial fibrillation Qualifiers: Atrial fibrillation type: unspecified Qualified Code(s): I48.91 - Unspecified atrial fibrillation Is this a current diagnosis for this admission?: YesPlan: On anticoagulation. (4) Pneumonia Qualifiers: Pneumonia type: due to unspecified organism Laterality: right Lung location: unspecified part of lung Qualified Code(s): J18.9 - Pneumonia, unspecified organism Is this a current diagnosis for this admission?: YesPlan: Defer management to Dr. Ojebuoboh. Patient on Cefotan . Blood cultures so far negative. (5) Acute deep vein thrombosis (DVT) of left lower extremity Qualifiers: Affected thrombotic vein of extremity: femoral Qualified Code(s): I82.412 - Acute embolism and thrombosis of left femoral vein Is this a current diagnosis for this admission?: YesPlan: On anticoagulation. (6) Hypertension Qualifiers: Hypertension type: essential hypertension Qualified Code(s): I10 - Essential (primary) hypertension Is this a current diagnosis for this admission?: Yes (7) Metabolic encephalopathy Is this a current diagnosis for this admission?: YesPlan: Much improved today. - Notes Notes: From nephrology standpoint I think patient can be discharged back to the group home. If discharge she is to continue outpatient dialysis on her regular scheduled time at [facility]. Next dialysis will be on Saturday. - Time Time with patient: 15-25 minutes
== END 2017-01-23 19:45 | DRG 193 ==
LOC: ER 02:19 → UNDOADMIN 07:29 → EH 07:29 → 3N 22:10
PROVIDERS: ADMIT Internal Medicine; ATTEND Internal Medicine
PROC: 5A09557 Assistance with Respiratory Ventilation, Greater than 96 Consecutive Hours, Continuous Positive Airway Pressure (ICD-10-PCS; 2017-01-15)
PROC: 30233N1 Transfusion of Nonautologous Red Blood Cells into Peripheral Vein, Percutaneous Approach (ICD-10-PCS; principal; 2017-01-16)
PROC: 5A1D60Z (ICD-10-PCS; 2017-01-16)
DX: J18.9 Pneumonia, unspecified organism (principal); N18.6 End stage renal disease; G93.41 Metabolic encephalopathy; I69.354 Hemiplegia and hemiparesis following cerebral infarction affecting left non-dominant side; N25.81 Secondary hyperparathyroidism of renal origin; I12.0 Hypertensive chronic kidney disease with stage 5 chronic kidney disease or end stage renal disease; I82.412 Acute embolism and thrombosis of left femoral vein; E11.22 Type 2 diabetes mellitus with diabetic chronic kidney disease; I25.10 Atherosclerotic heart disease of native coronary artery without angina pectoris; E78.5 Hyperlipidemia, unspecified; Z99.2 Dependence on renal dialysis; E11.40 Type 2 diabetes mellitus with diabetic neuropathy, unspecified; E11.319 Type 2 diabetes mellitus with unspecified diabetic retinopathy without macular edema; K21.9 Gastro-esophageal reflux disease without esophagitis; M79.7 Fibromyalgia; M19.90 Unspecified osteoarthritis, unspecified site; F32.9 Major depressive disorder, single episode, unspecified; D63.1 Anemia in chronic kidney disease; E83.39 Other disorders of phosphorus metabolism; H54.42 Blindness, left eye, normal vision right eye; Z79.01 Long term (current) use of anticoagulants; I25.2 Old myocardial infarction; Z95.5 Presence of coronary angioplasty implant and graft; Z79.899 Other long term (current) drug therapy; Z90.710 Acquired absence of both cervix and uterus; Z79.82 Long term (current) use of aspirin; Z88.4 Allergy status to anesthetic agent; Z88.6 Allergy status to analgesic agent; Z88.8 Allergy status to other drugs, medicaments and biological substances; Z82.49 Family history of ischemic heart disease and other diseases of the circulatory system; Z82.3 Family history of stroke; Z82.5 Family history of asthma and other chronic lower respiratory diseases; Z79.4 Long term (current) use of insulin; Z95.828 Presence of other vascular implants and grafts; Z86.718 Personal history of other venous thrombosis and embolism
CPT/HCPCS: 36415; 36430; 36600; 70450; 71010; 71250; 80048; 80053; 82550; 82553; 82803; 82962; 83735; 84439; 84443; 84484; 85025; 85610; 86850; 86900; 86901; 86920; 87040; 93005; 93010; 94640; 94660; 96365; 96375; 96376; 99291; J0692; J1815; J2930; J3370; J3475; J3490; J7060; J7620; P9016

== ENCOUNTER 2017-02-19 07:59 | Day surgery (SDC) | payer MEDICARE, MEDICAID ==
[~2017-02-19 07:59] MED LIST: DIAZEPAM 5 MG TABLET PO PRN; OXYCODONE-ACETAMINOPHEN 5-325 MG TABLET PO PRN
[2017-02-19 08:41] LABS: HEMATOCRIT 30.2 % (36.0-47.0); HEMOGLOBIN 10.7 g/dL (12.0-15.5); HGB HCT DIFFERENCE 1.9; MEAN CORPUSCULAR HEMOGLOBIN 32.2 pg (27.0-33.4); MEAN CORPUSCULAR HGB CONC 35.4 g/dL (32.0-36.0); RED BLOOD COUNT 3.32 10^6/uL (3.72-5.28); RED CELL DISTRIBUTION WIDTH 18.3 % (11.5-14.0)
[2017-02-19] MEDS ORDERED: FENTANYL CITRATE INJ/PF 100 MCG/2 ML AMPUL ONE (08:42)
[2017-02-19] MEDS ORDERED: MIDAZOLAM 2 MG/2 ML INJ ONE (08:42)
[2017-02-19] MEDS ORDERED: HEPARIN SOD (PORCINE) 5,000 UNIT/ML 1 ML SYRINGE ONE (08:42)
[2017-02-19] MEDS ORDERED: LIDOCAINE 0.5% INJ-PF (5 MG/ML) 50 ML SDV ONE (08:42)
[2017-02-19 08:49] LABS: MEAN CORPUSCULAR VOLUME 91 fl (80-97)
[2017-02-19 08:55] LABS: ANION GAP 13 (5-19); BLOOD UREA NITROGEN 44 mg/dL (7-20); CALCIUM 9.2 mg/dL (8.4-10.2); CARBON DIOXIDE 27 mmol/L (22-30); CHLORIDE 102 mmol/L (98-107); CREATININE RESULT 3.16 mg/dL (0.52-1.25); GLUCOSE 109 mg/dL (75-110); POTASSIUM 3.8 mmol/L (3.6-5.0); SODIUM 142.4 mmol/L (137-145)
--- NOTE | 2017-02-19 12:50 | PDOC DISCHARGE SUMMARY ---
Discharge Summary (SDC) - Discharge Final Diagnosis: #1 malfunctioning arteriovenous fistula, left radiocephalic. #2 end-stage renal disease on hemodialysis. 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 #4 hypertension. Date of Surgery: 02/19/17 Discharge Date: 02/19/17 Condition: Fair Forms: Sedation D/C Instructions, Discharge POC-Surgical Service Treatment or Instructions: Return to physician in 1 week, call MD office for appt. Referrals: WILLI FENG MD [ACTIVE STAFF] - Discharge Diet: Other (Comments) - Renal Respiratory Treatments at Home: Deep Breathing/Coughing Discharge Activity: Activity As Tolerated Home Care Assistance: None Needed Activities Provided by Home Health Agency: Residential Adaptive Devices on Discharge: Wheelchair Report the Following to Your Physician Immediately: Shortness of Breath, Nausea , Vomiting, Increase in Pain, Fever over 101 Degrees, Unusual Bleeding, Redness , Swelling, Warmth, Numbness, Tingling Sensation
[2017-02-19 13:08] VITALS: BP 156/71
--- NOTE | 2017-02-19 18:27 | Operative Report ---
Operative Report DATE OF SURGERY: 02/19/17 PREOPERATIVE DIAGNOSIS: #1 malfunctioning arteriovenous fistula, left radiocephalic. #2 end-stage renal disease on hemodialysis. #3 history of stroke with left-sided hemiparesis. #4 hypertension. POSTOPERATIVE DIAGNOSIS: #1 malfunctioning arteriovenous fistula, left radiocephalic. Post angiogram. #2 end-stage renal disease on hemodialysis. # 3 history of stroke with left-sided hemiparesis. #4 hypertension. OPERATION: Left radiocephalic fistula angiogram. SURGEON: WILLI EAGLE ALARM OPERATOR: none ANESTHESIA: Moderate Sedation TISSUE REMOVED OR ALTERED: Not applicable. COMPLICATIONS: Inability to access proximal outflow veins. ESTIMATED BLOOD LOSS: 2 mL. INTRAOPERATIVE FINDINGS: Of a somewhat firm left forearm radiocephalic fistula. The angiogram demonstrated the cephalic which is atretic. The outflow is through what appears to be the brachial vein. Multiple maneuvers at entering the outflow proved impossible. This involved use of a Kumpe catheter, torque device, use of 0.18 and 0.35 Glidewire. This involved attempted retrograde access to the basilic vein and through the brachial vein. Under ultrasound guidance. Attempts were frustrated by the inability of roadmapping to work in this equipment today. Future plans in this lady who has limited access will be to have another attempt, possibly elsewhere to access and dilate the junction between the cephalic vein and the basilic and/or brachial vein. Failing this a jump graft from the existing fistula to the brachial vein probably be the next best option. It would be somewhat challenging as it is a reoperative field and the patient has only limited mobility and flexion deformities in the left upper extremity. Also note ultrasound showed that the true basilic vein was in fact small and atretic although it did have some flow cephalad.
== END 2017-02-19 13:05 | disposition home or self-care (01) ==
LOC: CCL 07:59
PROVIDERS: ATTEND Surgery
PROC: 057F3DZ Dilation of Left Cephalic Vein with Intraluminal Device, Percutaneous Approach (ICD-10-PCS; principal; 2017-02-19)
DX: T82.858A Stenosis of other vascular prosthetic devices, implants and grafts, initial encounter (principal); Y83.2 Surgical operation with anastomosis, bypass or graft as the cause of abnormal reaction of the patient, or of later complication, without mention of misadventure at the time of the procedure; I12.0 Hypertensive chronic kidney disease with stage 5 chronic kidney disease or end stage renal disease; N18.6 End stage renal disease; Z99.2 Dependence on renal dialysis; R52 Pain, unspecified; F03.90 Unspecified dementia, unspecified severity, without behavioral disturbance, psychotic disturbance, mood disturbance, and anxiety; I69.354 Hemiplegia and hemiparesis following cerebral infarction affecting left non-dominant side; Z79.82 Long term (current) use of aspirin; Z88.5 Allergy status to narcotic agent; Z88.8 Allergy status to other drugs, medicaments and biological substances
CPT/HCPCS: 36415; 85027; 80048; 36901; 76937; C1752; C1887; C1769 ×2; Q9967; A9270 ×2; J3490; J1644; J2250; J3010

== ENCOUNTER 2017-03-25 16:25 | Emergency (ER) | payer MEDICARE, MEDICAID ==
[2017-03-25] MEDS ORDERED: ACETAMINOPHEN 325 MG TABLET PO ONE (20:04)
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
[2017-03-25 20:48] LABS: ABSOLUTE LYMPHOCYTES (AUTO) 1.2 10^3/uL (0.5-4.7); ABSOLUTE MONOCYTES (AUTO) 0.4 10^3/uL (0.1-1.4); ABSOLUTE NEUT (AUTO) 2.9 10^3/uL (1.7-8.2); BASOPHILS % (AUTO) 0.7 % (0-2); EOSINOPHILS % (AUTO) 0.9 % (0-6); HEMATOCRIT 31.2 % (36.0-47.0); HEMOGLOBIN 10.8 g/dL (12.0-15.5); HGB HCT DIFFERENCE 1.2; LYMPHOCYTES % (AUTO) 26.3 % (13-45); MEAN CORPUSCULAR HEMOGLOBIN 32.3 pg (27.0-33.4); MEAN CORPUSCULAR HGB CONC 34.6 g/dL (32.0-36.0); MEAN CORPUSCULAR VOLUME 93 fl (80-97); MONOCYTES % (AUTO) 8.8 % (3-13); RED BLOOD COUNT 3.35 10^6/uL (3.72-5.28); RED CELL DISTRIBUTION WIDTH 15.5 % (11.5-14.0); SEGMENTED NEUTROPHILS % (AUTO) 63.3 % (42-78); WHITE BLOOD COUNT 4.7 10^3/uL (4.0-10.5)
[2017-03-25 20:56] LABS: PROTHROMBIN TIME 21.9 SEC (11.4-15.4)
--- NOTE | 2017-03-25 20:59 | RADIOLOGY REPORT (SQ) ---
EXAM DESCRIPTION: FEMUR RIGHT COMPLETED DATE/TIME: 03/25/2017 8:41 pm REASON FOR STUDY: fall, r femur pain COMPARISON: None. NUMBER OF VIEWS: Two views. TECHNIQUE: Two radiographic images acquired of the right femur to include hip and knee in at least o ne projection. LIMITATIONS: None. FINDINGS: MINERALIZATION: Normal. BONES: No acute fracture. No worrisome bone lesions. SOFT TISSUES: No obvious swelling or foreign body. OTHER: No other significant finding. IMPRESSION: NO RADIOGRAPHIC EVIDENCE OF ACUTE INJURY. TECHNICAL DOCUMENTATION: JOB ID: [id number] [employer]- All Rights Reserved
--- NOTE | 2017-03-25 21:01 | RADIOLOGY REPORT (SQ) ---
EXAM DESCRIPTION: FOOT RIGHT COMPLETE COMPLETED DATE/TIME: 03/25/2017 8:41 pm REASON FOR STUDY: fall, r foot pain COMPARISON: None. NUMBER OF VIEWS: Three views. TECHNIQUE: AP, lateral and oblique radiographic images acquired of the right foot. LIMITATIONS: None. FINDINGS: MINERALIZATION: Normal. BONES: No acute fracture or dislocation. Old healed 5th metatarsal fracture. No worrisome bone lesi ons. JOINTS: No effusions. SOFT TISSUES: No soft tissue swelling. No foreign body. OTHER: No other significant finding. IMPRESSION: No acute fracture. TECHNICAL DOCUMENTATION: JOB ID: [id number] [employer]- All Rights Reserved
--- NOTE | 2017-03-25 21:04 | RADIOLOGY REPORT (SQ) ---
EXAM DESCRIPTION: L SPINE WHOLE COMPLETED DATE/TIME: 03/25/2017 8:41 pm REASON FOR STUDY: fall, low back pain COMPARISON: 08/23/2016 NUMBER OF VIEWS: Five views including obliques. TECHNIQUE: AP, lateral, oblique, and sacral radiographic images acquired of the lumbar spine. LIMITATIONS: None. FINDINGS: MINERALIZATION: Osteopenia. SEGMENTATION: Normal. No transitional anatomy. ALIGNMENT: Similar degenerative appearing anterolisthesis of L5 on S1. VERTEBRAE: Maintained height. No fracture or worrisome bone lesion. DISCS: Multilevel disc space narrowing with osteophytes. POSTERIOR ELEMENTS: Pedicles and facets are intact. No pars defect or posterior arch defects. Facet arthropathy is present. HARDWARE: IVC filter. Pelvic nerve stimulator. PARASPINAL SOFT TISSUES: Normal. PELVIS: Intact as visualized. No fractures or worrisome bone lesions. SI joints intact. OTHER: No other significant finding. IMPRESSION: No significant change compared with August 2016. No fracture identified. TECHNICAL DOCUMENTATION: JOB ID: [id number] [employer]- All Rights Reserved
[2017-03-25 21:12] LABS: ANION GAP 12 (5-19); BLOOD UREA NITROGEN 26 mg/dL (7-20); CALCIUM 8.2 mg/dL (8.4-10.2); CARBON DIOXIDE 28 mmol/L (22-30); CHLORIDE 96 mmol/L (98-107); CREATININE RESULT 2.48 mg/dL (0.52-1.25); GLUCOSE 88 mg/dL (75-110); POTASSIUM 3.4 mmol/L (3.6-5.0); SODIUM 136.2 mmol/L (137-145)
[2017-03-25] MEDS ORDERED: LIDOCAINE 5% (700 MG) TRANSDERMAL ADH..PATCH TP ONE (21:50)
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
[2017-03-25 22:46] VITALS: BP 155/60
== END 2017-03-26 00:10 | disposition home or self-care (01) ==
LOC: ER 16:25
DX: M25.551 Pain in right hip (principal); M54.5 Low back pain
CPT/HCPCS: 99284; 36415; 85025; 85610; 80048; 73552; 73630; 72110; A9270

== ENCOUNTER 2017-05-03 15:08 | Emergency (ER) | payer MEDICARE, MEDICAID ==
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
[2017-05-03 17:35] LABS: ABSOLUTE EOSINOPHILS # (AUTO) 0.1 10^3/uL (0.0-0.6); ABSOLUTE MONOCYTES (AUTO) 0.4 10^3/uL (0.1-1.4); ABSOLUTE NEUT (AUTO) 3.7 10^3/uL (1.7-8.2); BASOPHILS % (AUTO) 0.9 % (0-2); EOSINOPHILS % (AUTO) 1.5 % (0-6); HEMATOCRIT 31.2 % (36.0-47.0); HEMOGLOBIN 10.8 g/dL (12.0-15.5); HGB HCT DIFFERENCE 1.2; LYMPHOCYTES % (AUTO) 18.7 % (13-45); MEAN CORPUSCULAR HEMOGLOBIN 31.7 pg (27.0-33.4); MEAN CORPUSCULAR HGB CONC 34.7 g/dL (32.0-36.0); MEAN CORPUSCULAR VOLUME 91 fl (80-97); RED BLOOD COUNT 3.42 10^6/uL (3.72-5.28); RED CELL DISTRIBUTION WIDTH 14.9 % (11.5-14.0); SEGMENTED NEUTROPHILS % (AUTO) 70.9 % (42-78); WHITE BLOOD COUNT 5.3 10^3/uL (4.0-10.5)
[2017-05-03 17:42] LABS: PARTIAL THROMBOPLASTIN TIME 36.1 SEC (23.5-35.8); PROTHROMBIN TIME 26.5 SEC (11.4-15.4)
[2017-05-03 17:52] LABS: ALANINE AMINOTRANSFERASE 51 U/L (9-52); ALBUMIN 3.9 g/dL (3.5-5.0); ALKALINE PHOSPHATASE 196 U/L (38-126); ANION GAP 10 (5-19); ASPARTATE AMINO TRANSFERASE 31 U/L (14-36); BILIRUBIN,DIRECT 0.3 mg/dL (0.0-0.4); BILIRUBIN,TOTAL 0.9 mg/dL (0.2-1.3); BLOOD UREA NITROGEN 22 mg/dL (7-20); CARBON DIOXIDE 30 mmol/L (22-30); CHLORIDE 100 mmol/L (98-107); CREATININE RESULT 1.94 mg/dL (0.52-1.25); GLUCOSE 111 mg/dL (75-110); POTASSIUM 3.1 mmol/L (3.6-5.0); SODIUM 140.3 mmol/L (137-145); TOTAL PROTEIN 6.9 g/dL (6.3-8.2)
--- NOTE | 2017-05-03 18:44 | RADIOLOGY REPORT (SQ) ---
EXAM DESCRIPTION: VENOUS UNILATERAL LOWER COMPLETED DATE/TIME: 05/03/2017 6:34 pm REASON FOR STUDY: left leg swelling, h/o dvt COMPARISON: None. TECHNIQUE: Dynamic and static del real scale and color images acquired of the left leg venous system. Se lected spectral images acquired with additional compression and augmentation maneuvers. The contralat eral common femoral vein and saphenofemoral junction were also imaged. Images stored on PACS. LIMITATIONS: None. FINDINGS: COMMON FEMORAL: Normal phasicity, compression and augmentation. No visualized echogenic ma terial on del real scale. No defects on color images. FEMORAL: Normal compression and augmentation. No visualized echogenic material on del real scale. No defe cts on color images. POPLITEAL: Normal compression, augmentation. No visualized echogenic material on del real scale. No defec ts on color images. CALF VESSELS: Normal compression, augmentation. No visualized echogenic material on del real scale. No de fects on color images. GSV and SSV: Normal compression, augmentation. No visualized echogenic material on del real scale. No def ects on color images. ANY DEEP VENOUS INSUFFICIENCY: Not evaluated. ANY EVIDENCE OF POPLITEAL CYST: No. OTHER: Subcutaneous edema. CONTRALATERAL COMMON FEMORAL VEIN AND SAPHENOFEMORAL JUNCTION: Normal phasicity, compression and augmentation. No visualized echogenic material on del real scale. No de fects on color images. IMPRESSION: SUBCUTANEOUS EDEMA. NO EVIDENCE DVT OR SVT IN THE LEFT LEG. TECHNICAL DOCUMENTATION: JOB ID: [id number] [employer]- All Rights Reserved
--- NOTE | 2017-05-03 18:45 | RADIOLOGY REPORT (SQ) ---
EXAM DESCRIPTION: VENOUS UNILATERAL UPPER COMPLETED DATE/TIME: 05/03/2017 6:34 pm REASON FOR STUDY: Left upper extremity swelling COMPARISON: None. TECHNIQUE: Dynamic and static del real scale and color images acquired of the left arm venous system. Se lected spectral images acquired with additional compression and augmentation maneuvers. The contralat eral subclavian vein and internal jugular vein were also imaged. Images stored on PACS. LIMITATIONS: None. FINDINGS: INTERNAL JUGULAR VEIN: Normal phasicity, compression, augmentation. No visualized echogeni c material on del real scale. No defects on color images. Comparison opposite side normal. SUBCLAVIAN VEIN: Normal compression, augmentation. No visualized echogenic material on del real scale. No defects on color images. AXILLARY VEIN: Normal compression, augmentation. No visualized echogenic material on del real scale. No d efects on color images. BRACHIAL VEIN: Normal compression, augmentation. No visualized echogenic material on del real scale. No d efects on color images. BASILIC VEIN: Normal compression, augmentation. No visualized echogenic material on del real scale. No de fects on color images. CEPHALIC VEIN: Normal compression, augmentation. No visualized echogenic material on del real scale. No d efects on color images. OTHER: No other significant finding. CONTRALATERAL SUBCLAVIAN VEIN AND INTERNAL JUGULAR VEIN: Normal phasicity, compression and augmentation. No visualized echogenic material on del real scale. No de fects on color images. IMPRESSION: NO EVIDENCE DVT OR SVT IN THE LEFT ARM. TECHNICAL DOCUMENTATION: JOB ID: [id number] [employer]- All Rights Reserved
[2017-05-03 19:03] VITALS: BP 151/68
== END 2017-05-03 19:00 | disposition home or self-care (01) ==
LOC: ER 15:08
DX: I12.0 Hypertensive chronic kidney disease with stage 5 chronic kidney disease or end stage renal disease (principal); E11.22 Type 2 diabetes mellitus with diabetic chronic kidney disease; N18.6 End stage renal disease; Z99.2 Dependence on renal dialysis; R60.9 Edema, unspecified; I25.10 Atherosclerotic heart disease of native coronary artery without angina pectoris; I25.2 Old myocardial infarction; Z79.01 Long term (current) use of anticoagulants; Z86.718 Personal history of other venous thrombosis and embolism; Z88.8 Allergy status to other drugs, medicaments and biological substances; Z88.3 Allergy status to other anti-infective agents; Z87.892 Personal history of anaphylaxis; Z88.5 Allergy status to narcotic agent; Z98.61 Coronary angioplasty status
CPT/HCPCS: 36415; 80053; 85025; 85610; 85730; 93971; 99284

== ENCOUNTER 2017-06-21 09:44 | Emergency (ER) | payer MEDICARE, MEDICAID ==
--- NOTE | 2017-06-21 10:23 | RADIOLOGY REPORT (SQ) ---
EXAM DESCRIPTION: CHEST SINGLE VIEW COMPLETED DATE/TIME: 06/21/2017 10:11 am REASON FOR STUDY: sob COMPARISON: 01/15/2017 NUMBER OF VIEWS: One view. TECHNIQUE: Single frontal radiographic view of the chest acquired. LIMITATIONS: None. FINDINGS: LUNGS AND PLEURA: Small pleural effusions and associated airspace disease, left greater th an right. MEDIASTINUM AND HILAR STRUCTURES: No masses. Contour normal. HEART AND VASCULAR STRUCTURES: Cardiomegaly. BONES: No acute findings. HARDWARE: None in the chest. OTHER: No other significant finding. IMPRESSION: Asymmetric edema or pneumonia. Clinical correlation is needed. TECHNICAL DOCUMENTATION: JOB ID: [id number] [employer]- All Rights Reserved
[2017-06-21 10:32] VITALS: BP 140/64
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
== END 2017-06-21 10:39 | disposition home or self-care (01) ==
LOC: ER 09:44
DX: N18.6 End stage renal disease (principal); R06.00 Dyspnea, unspecified; R06.02 Shortness of breath
CPT/HCPCS: 71010; 99285

== ENCOUNTER 2017-06-25 06:35 | Emergency (ER) | payer MEDICARE, MEDICAID ==
[2017-06-25] MEDS ORDERED: IPRATROPIUM/ALBUTEROL 0.5-2.5 MG/3 ML AMPUL NEB ONE ×2 (06:53→09:56)
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
[2017-06-25 07:03] LABS: ABSOLUTE EOSINOPHILS # (AUTO) 0.2 10^3/uL (0.0-0.6); ABSOLUTE MONOCYTES (AUTO) 0.4 10^3/uL (0.1-1.4); ABSOLUTE NEUT (AUTO) 2.4 10^3/uL (1.7-8.2); BASOPHILS % (AUTO) 1.2 % (0-2); HEMATOCRIT 25.6 % (36.0-47.0); HEMOGLOBIN 8.9 g/dL (12.0-15.5); HGB HCT DIFFERENCE 1.1; LYMPHOCYTES % (AUTO) 23.9 % (13-45); MEAN CORPUSCULAR HEMOGLOBIN 30.8 pg (27.0-33.4); MEAN CORPUSCULAR HGB CONC 34.7 g/dL (32.0-36.0); MEAN CORPUSCULAR VOLUME 89 fl (80-97); MONOCYTES % (AUTO) 10.8 % (3-13); RED BLOOD COUNT 2.89 10^6/uL (3.72-5.28); SEGMENTED NEUTROPHILS % (AUTO) 59.1 % (42-78); WHITE BLOOD COUNT 4.1 10^3/uL (4.0-10.5)
[2017-06-25 07:14] LABS: PROTHROMBIN TIME 27.3 SEC (11.4-15.4)
[2017-06-25 07:17] LABS: ALANINE AMINOTRANSFERASE 21 U/L (9-52); ALBUMIN 3.3 g/dL (3.5-5.0); ALKALINE PHOSPHATASE 179 U/L (38-126); ANION GAP 10 (5-19); ASPARTATE AMINO TRANSFERASE 26 U/L (14-36); BILIRUBIN,DIRECT 0.5 mg/dL (0.0-0.4); BILIRUBIN,TOTAL 0.7 mg/dL (0.2-1.3); BLOOD UREA NITROGEN 29 mg/dL (7-20); CALCIUM 8.4 mg/dL (8.4-10.2); CARBON DIOXIDE 30 mmol/L (22-30); CHLORIDE 98 mmol/L (98-107); GLUCOSE 136 mg/dL (75-110); POTASSIUM 3.7 mmol/L (3.6-5.0); SODIUM 138.1 mmol/L (137-145); TOTAL PROTEIN 5.9 g/dL (6.3-8.2)
--- NOTE | 2017-06-25 07:56 | EKG REPORT ---
SEVERITY:- ABNORMAL ECG - ATRIAL FIBRILLATION LEFT VENTRICULAR HYPERTROPHY : Confirmed by: Angel Rivera MD 25-Jun-2017 07:55:19
--- NOTE | 2017-06-25 08:53 | RADIOLOGY REPORT (SQ) ---
EXAM DESCRIPTION: CHEST PA/LAT COMPLETED DATE/TIME: 06/25/2017 8:38 am REASON FOR STUDY: Dyspnea COMPARISON: 06/21/2017. EXAM PARAMETERS: NUMBER OF VIEWS: two views TECHNIQUE: Digital Frontal and Lateral radiographic views of the chest acquired. RADIATION DOSE: NA LIMITATIONS: none FINDINGS: LUNGS AND PLEURA: Right basilar density, best visualized on the lateral view. Small right pleural effusion. MEDIASTINUM AND HILAR STRUCTURES: No masses or contour abnormalities. HEART AND VASCULAR STRUCTURES: Heart normal size. No evidence for failure. BONES: No acute findings. HARDWARE: None in the chest. OTHER: No other significant finding. IMPRESSION: RIGHT BASILAR ATELECTASIS VERSUS INFILTRATE WITH SMALL RIGHT PLEURAL EFFUSION. TECHNICAL DOCUMENTATION: JOB ID: [id number] [employer]- All Rights Reserved
[2017-06-25] MEDS ORDERED: LEVOFLOXACIN 750 MG TABLET PO ONE (11:19)
[2017-06-25 12:04] VITALS: BP 127/60
== END 2017-06-25 12:04 ==
LOC: ER 06:35
DX: R06.00 Dyspnea, unspecified (principal); J18.9 Pneumonia, unspecified organism; E11.22 Type 2 diabetes mellitus with diabetic chronic kidney disease; I12.0 Hypertensive chronic kidney disease with stage 5 chronic kidney disease or end stage renal disease; N18.6 End stage renal disease; Z99.2 Dependence on renal dialysis; Z79.4 Long term (current) use of insulin; E78.00 Pure hypercholesterolemia, unspecified; I25.10 Atherosclerotic heart disease of native coronary artery without angina pectoris; Z86.718 Personal history of other venous thrombosis and embolism; I25.2 Old myocardial infarction; Z90.710 Acquired absence of both cervix and uterus
CPT/HCPCS: 93005; 94640 ×2; 99285; 36415; 85025; 85610; 80053; 84484; 71020; 93010; A9270 ×2; J7620

== ENCOUNTER 2017-08-15 12:08 | Day surgery (SDC) | payer MEDICARE, MEDICAID ==
[~2017-08-15 12:08] MED LIST changes: +BESIFLOXACIN HCL 0.6% OPH SUSP 5 ML BOTTLE OS PRN; +BUPIVACAINE HCL 0.75% INJ/PF (7.5 MG/1 ML) 10 ML SDV ONE; +CHONDR SU A NA/HYALUR INTRAOC KIT (SURGICARE) ONE; +CYCLOPENTOLATE 0.2%/PHENYLEPHRINE 1% OPH SOLN 2 ML OS PRN; -DIAZEPAM 5 MG TABLET PO PRN; +HYALURONIDASE INJ 150 UNIT/1 ML VIAL ONE; +KETOROLAC TROMETHAMINE 0.45% 4 DROP/0.4 ML DROPERETTE OS PRN; +LIDOCAINE 1% INJ-PF (10 MG/ML) 30 ML SDV ONE; +LIDOCAINE 2% INJ-PF (20 MG/ML) 10 ML AMPUL ONE; -OXYCODONE-ACETAMINOPHEN 5-325 MG TABLET PO PRN; +PHENYLEPHRINE/KETOROLAC 1%-0.3% 4 ML VIAL ONE; +TETRACAINE HCL 0.5% OPH SOLN 2 ML OS PRN; +TOBRAMYCIN SULFATE/DEXAMETH OPH OINTMENT 3.5 GM ONE; +TROPICAMIDE 1% OPH SOLN 3 ML OS PRN; +TRYPAN BLUE 0.06 % OPH SOLN 0.5 ML DISP.SYRIN ONE
[2017-08-15] MEDS: TETRACAINE HCL 0.5% OPH SOLN 2 ML OS PRN ×3 (12:40→13:07)
[2017-08-15] MEDS: CYCLOPENTOLATE 0.2%/PHENYLEPHRINE 1% OPH SOLN 2 ML OS PRN ×3 (12:40→13:02)
[2017-08-15] MEDS: TROPICAMIDE 1% OPH SOLN 3 ML OS PRN ×3 (12:41→13:02)
[2017-08-15] MEDS: BESIFLOXACIN HCL 0.6% OPH SUSP 5 ML BOTTLE OS PRN ×2 (12:41→12:52)
[2017-08-15] MEDS ORDERED: PROPOFOL INJ 200 MG/20 ML VIAL IV ONE (12:56)
[2017-08-15] MEDS ORDERED: TRYPAN BLUE 0.06 % OPH SOLN 0.5 ML DISP.SYRIN ONE (13:25)
[2017-08-15] MEDS ORDERED: CHONDR SU A NA/HYALUR SOD 0.5 ML DISP.SYRIN ONE (13:40)
--- NOTE | 2017-08-15 20:23 | [facility] OPERATIVE REPORT E ---
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 OPERATION: Cataract extraction with use of Trypan blue dye due to poor visualization of the anterior capsule, intraocular lens implant of the left eye. complex SURGEON: MESERET HUNTLEY M.D. ANESTHESIA: Topical with retrobulbar block of 2% lidocaine, 0.75% Marcaine in a 50/50 mixture with 100 units of Vitrase. COMPLICATIONS: None. PROCEDURE: After obtaining appropriate consent, the patient's left eye was prepped and draped in sterile fashion as well as the surgeon in a sterile manner and cataract surgery was started. First a paracentesis blade was used to make a small side-port incision. Viscoelastic was used to inflate the anterior chamber. Next a 2.4 mm incision was made with the paracentesis blade. Prior to making the capsulorrhexis, the anterior capsule was stained with Trypan blue dye due to the density of the lens. A continuous capsulorrhexis incision was made using a cystotome and Utrata forceps. Following this hydrodissection was carried out to make the lens fully loose and mobile and it was rotated 90 degrees. Following this, a ikwiok-fji-wkpfrth technique was used to phacoemulsify the lens with a CDE of 60.31. The remaining cortex was removed with irrigation/aspiration. Provisc was instilled into the capsular bag to inflate the bag. A SN60WF, 22.0 diopter lens was placed. The remaining viscoelastic material was removed with irrigation/aspiration. Following this, a 10-0 nylon suture was used to close the incision and it was found to be watertight. Vigamox was instilled in the eye and a protective shield was placed over the eye. The patient returned to the postoperative recovery in stable condition. Prior to making the capsulorhexis trypan blue dye was used to stain the anterior capsule due to poor visualization. DICTATING PHYSICIAN: MESERET HUNTLEY M.D. [id number] PHY#: [id number] 2007 ID: [id number] JOB#: [id number] ACCT: [id number] cc:MESERET HUNTLEY M.D. > MTDD
--- NOTE | 2017-08-15 20:28 | [facility] DISCHARGE SUMMARY E ---
[facility] Discharge Summary NAME: JORGE LUIS WATERS AGE: 82Y ADMITTED: 08/15/2017 DISCHARGED: 08/15/2017 FINAL DIAGNOSIS: OTHER AGE-RELATED CATARACT OF THE LEFT EYE. HISTORY/CLINIC COURSE: This is an 82-year-old female who underwent cataract extraction of the left eye. This was a complex cataract extraction with use of Trypan blue dye to visualize the anterior capsule. She underwent surgery because she was unable to see cases with her left eye. Without complication, woke up in postoperative recovery in stable condition. Patient is to be on a regular diet. No bending at the waist, no heavy lifting. Patient should use the PredForte, Nevanac, Vigamox at 3 p.m. and 8 p.m., and sleep with a pressure patch instilled with Tobradex, and we will start her drops in the morning. I will see her for 1 day postoperative tomorrow. DICTATING PHYSICIAN: MESERET HUNTLEY M.D. [id number] PHY#: [id number] 2007 ID: [id number] JOB#: [id number] ACCT: [id number] cc:MESERET HUNTLEY M.D. >
== END 2017-08-15 15:33 | disposition home or self-care (01) ==
LOC: SC 12:08
PROVIDERS: ATTEND Internal Medicine
PROC: 08RK3JZ Replacement of Left Lens with Synthetic Substitute, Percutaneous Approach (ICD-10-PCS; principal; 2017-08-15 13:30)
DX: H25.89 Other age-related cataract (principal); H57.03 Miosis; I12.9 Hypertensive chronic kidney disease with stage 1 through stage 4 chronic kidney disease, or unspecified chronic kidney disease; E11.22 Type 2 diabetes mellitus with diabetic chronic kidney disease; N18.9 Chronic kidney disease, unspecified; Z99.2 Dependence on renal dialysis; I73.9 Peripheral vascular disease, unspecified; M79.7 Fibromyalgia; I69.354 Hemiplegia and hemiparesis following cerebral infarction affecting left non-dominant side
CPT/HCPCS: 66982; 82962; V2632; J3490 ×6; A9270; J2704; J3470; C9447; 142

== ENCOUNTER 2017-08-25 08:48 | Emergency (ER) | payer MEDICARE, MEDICAID ==
[2017-08-25] MEDS ORDERED: LIDOCAINE 1% INJ-PF (10 MG/ML) 30 ML SDV INJ ONE (08:56)
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
[2017-08-25 10:45] VITALS: BP 138/83
== END 2017-08-25 10:48 | disposition home or self-care (01) ==
LOC: ER 08:48
PROC: 0H94XZZ Drainage of Neck Skin, External Approach (ICD-10-PCS; principal; 2017-08-25)
DX: L02.11 Cutaneous abscess of neck (principal); L03.221 Cellulitis of neck; E11.9 Type 2 diabetes mellitus without complications; N18.9 Chronic kidney disease, unspecified; Z99.2 Dependence on renal dialysis
CPT/HCPCS: 99283; 87070; 87205; 87077; 87186; 10060; A6266

== ENCOUNTER 2017-11-17 18:22 | Emergency (ER) | payer MEDICARE, MEDICAID ==
[2017-11-17] MEDS ORDERED: LIDOCAINE 1% INJ-PF (10 MG/ML) 30 ML SDV INJ ONE (19:37)
[2017-11-17] MEDS ORDERED: ONDANSETRON 4 MG TAB.RAPDIS PO ONE (19:38)
[2017-11-17] MEDS ORDERED: OXYCODONE-ACETAMINOPHEN 5-325 MG TABLET PO ONE (19:38)
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
[2017-11-17 23:40] VITALS: BP 129/63
== END 2017-11-17 23:00 | disposition home or self-care (01) ==
LOC: ER 18:22
DX: L02.811 Cutaneous abscess of head [any part, except face] (principal); L08.9 Local infection of the skin and subcutaneous tissue, unspecified; I25.10 Atherosclerotic heart disease of native coronary artery without angina pectoris; E11.22 Type 2 diabetes mellitus with diabetic chronic kidney disease; I12.0 Hypertensive chronic kidney disease with stage 5 chronic kidney disease or end stage renal disease; N18.6 End stage renal disease; Z99.2 Dependence on renal dialysis; Z88.3 Allergy status to other anti-infective agents; Z88.8 Allergy status to other drugs, medicaments and biological substances; Z87.892 Personal history of anaphylaxis; Z88.5 Allergy status to narcotic agent; Z95.5 Presence of coronary angioplasty implant and graft
CPT/HCPCS: 99283; 10060; A9270 ×2; J3490; S0119

== ENCOUNTER 2018-04-11 21:00 | Inpatient (IN) | payer MEDICARE, MEDICAID ==
[2018-04-11 21:48] LABS: ABSOLUTE BASOPHILS # (AUTO) 0.1 10^3/uL (0.0-0.2); ABSOLUTE EOSINOPHILS # (AUTO) 0.1 10^3/uL (0.0-0.6); ABSOLUTE LYMPHOCYTES (AUTO) 0.9 10^3/uL (0.5-4.7); ABSOLUTE MONOCYTES (AUTO) 0.5 10^3/uL (0.1-1.4); ABSOLUTE NEUT (AUTO) 4.5 10^3/uL (1.7-8.2); BASOPHILS % (AUTO) 1.1 % (0-2); EOSINOPHILS % (AUTO) 2.1 % (0-6); HEMATOCRIT 32.7 % (36.0-47.0); HEMOGLOBIN 10.9 g/dL (12.0-15.5); LYMPHOCYTES % (AUTO) 15.3 % (13-45); MEAN CORPUSCULAR HEMOGLOBIN 28.6 pg (27.0-33.4); MEAN CORPUSCULAR HGB CONC 33.4 g/dL (32.0-36.0); MEAN CORPUSCULAR VOLUME 86 fl (80-97); MONOCYTES % (AUTO) 7.7 % (3-13); PLATELET COUNT 178 10^3/uL (150-450); RED BLOOD COUNT 3.82 10^6/uL (3.72-5.28); RED CELL DISTRIBUTION WIDTH 17.4 % (11.5-14.0); SEGMENTED NEUTROPHILS % (AUTO) 73.8 % (42-78); TOTAL CELLS COUNTED % (AUTO) 100 %; WHITE BLOOD COUNT 6.1 10^3/uL (4.0-10.5)
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
[2018-04-11 21:59] LABS: ALANINE AMINOTRANSFERASE 44 U/L (9-52); ALKALINE PHOSPHATASE 92 U/L (38-126); ANION GAP 12 (5-19); ASPARTATE AMINO TRANSFERASE 45 U/L (14-36); BILIRUBIN,DIRECT 0.5 mg/dL (0.0-0.4); BILIRUBIN,TOTAL 0.9 mg/dL (0.2-1.3); BLOOD UREA NITROGEN 32 mg/dL (7-20); CALCIUM 9.1 mg/dL (8.4-10.2); CARBON DIOXIDE 29 mmol/L (22-30); CHLORIDE 99 mmol/L (98-107); CREATINE KINASE 53 U/L (30-135); GLUCOSE 170 mg/dL (75-110); POTASSIUM 4.1 mmol/L (3.6-5.0); TOTAL PROTEIN 7.1 g/dL (6.3-8.2)
--- NOTE | 2018-04-11 22:07 | RADIOLOGY REPORT (SQ) ---
EXAM DESCRIPTION: CHEST SINGLE VIEW COMPLETED DATE/TIME: 04/11/2018 9:51 pm REASON FOR STUDY: dyspnea COMPARISON: 06/25/2017 EXAM PARAMETERS: NUMBER OF VIEWS: One view. TECHNIQUE: Single frontal radiographic view of the chest acquired. RADIATION DOSE: NA LIMITATIONS: None. FINDINGS: LUNGS AND PLEURA: Significantly increased right basilar airspace opacity-effusion. No pne umothorax. Left lung shows mild subsegmental atelectasis laterally. MEDIASTINUM AND HILAR STRUCTURES: Stable. HEART AND VASCULAR STRUCTURES: Stable. BONES: No acute findings. HARDWARE: None in the chest. OTHER: No other significant finding. IMPRESSION: Significantly increased right basilar airspace opacity-effusion. Left lung shows mild s ubsegmental atelectasis laterally. TECHNICAL DOCUMENTATION: JOB ID: [id number] [id number] 2010 [employer]- All Rights Reserved Reading location - IP/workstation name: [email or web address]
[2018-04-11 22:11] LABS: CREATINE KINASE MB 1.78 ng/mL (<4.55)
[2018-04-11 22:15] LABS: TROPONIN I 0.049 ng/mL
[2018-04-11] MEDS ORDERED: PIPERACILLIN/TAZOBACTAM 3.375 GM VIAL IV ONE (22:33)
[2018-04-11] MEDS ORDERED: VANCOMYCIN HCL INJ 1000 MG VIAL IV ONE (22:33)
--- NOTE | 2018-04-11 23:29 | RADIOLOGY REPORT (SQ) ---
EXAM DESCRIPTION: CT CHEST WITHOUT IV CONTRAST COMPLETED DATE/TME: 04/11/2018 22:59 CLINICAL HISTORY: 82 years Female, sob Comparison: 4.11.17 Technique: No contrast. Coronal and sagittal reformat. This exam was performed according to our departmental dose-optimization program, which includes automated exposure control, adjustment of the mA and/or kV according to patient size and/or use of iterative reconstruction technique.[facility]: Dose Right [facility]: CareDose [facility]: Dose Right [facility]: Teradose 4D [facility]: Weblance LIMITATIONS: None Findings: Moderate-large right pleural effusion, moderate mediastinal lymphadenopathy includes a 2.1 x 1.2 cm precarinal lymph node, small coronary dural calcification, atherosclerosis, small consolidate of the right lower lobe, IVC filter, moderate left renal atrophy, likely benign right renal cystic mass measures 4.5 cm, small ascites under the right hemidiaphragm anteriorly. Small nonspecific pericholecystic fluid. Pancreatic atrophy. Gallbladder not well discerned. Unenhanced inferior neck, axillae, airway, heart, upper abdomen, and musculoskeleton appear otherwise unremarkable. Impression: Right lower lobar consolidative contrast collection similar to prior CT from January 2017. Moderate-large right pleural effusion. Small ascites. Differential etiologies include infectious, inflammatory, and neoplastic processes.
[2018-04-11] MEDS ORDERED: ACETAMINOPHEN 325 MG TABLET PO PRN (23:41)
[2018-04-11] MEDS ORDERED: MAG HYDROX/AL HYDROX/SIMETH SUSP 30 ML UDCUP PO PRN (23:41)
[2018-04-12 00:08] LABS: INTERNATIONAL RATION (INR) 2.19; PROTHROMBIN TIME 25.4 SEC (11.4-15.4)
[2018-04-12] MEDS: CLONIDINE HCL 0.1 MG TABLET PO SCH ×4 (02:50→21:06)
[2018-04-12 05:11] LABS: ABSOLUTE BASOPHILS # (AUTO) 0.1 10^3/uL (0.0-0.2); ABSOLUTE EOSINOPHILS # (AUTO) 0.1 10^3/uL (0.0-0.6); ABSOLUTE LYMPHOCYTES (AUTO) 0.8 10^3/uL (0.5-4.7); ABSOLUTE MONOCYTES (AUTO) 0.5 10^3/uL (0.1-1.4); ABSOLUTE NEUT (AUTO) 5.8 10^3/uL (1.7-8.2); BASOPHILS % (AUTO) 0.8 % (0-2); EOSINOPHILS % (AUTO) 1.2 % (0-6); HEMATOCRIT 32.5 % (36.0-47.0); HEMOGLOBIN 10.8 g/dL (12.0-15.5); LYMPHOCYTES % (AUTO) 11.4 % (13-45); MEAN CORPUSCULAR HEMOGLOBIN 28.5 pg (27.0-33.4); MEAN CORPUSCULAR HGB CONC 33.3 g/dL (32.0-36.0); MEAN CORPUSCULAR VOLUME 86 fl (80-97); MONOCYTES % (AUTO) 6.4 % (3-13); PLATELET COUNT 161 10^3/uL (150-450); SEGMENTED NEUTROPHILS % (AUTO) 80.2 % (42-78); TOTAL CELLS COUNTED % (AUTO) 100 %; WHITE BLOOD COUNT 7.2 10^3/uL (4.0-10.5)
[2018-04-12 05:26] LABS: ANION GAP 14 (5-19); BLOOD UREA NITROGEN 34 mg/dL (7-20); CALCIUM 8.8 mg/dL (8.4-10.2); CARBON DIOXIDE 28 mmol/L (22-30); CHLORIDE 100 mmol/L (98-107); GLUCOSE 156 mg/dL (75-110); POTASSIUM 3.9 mmol/L (3.6-5.0)
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
[2018-04-12] MEDS ORDERED: HEPARIN SOD (PORCINE) 5,000 UNIT/ML 1 ML SYRINGE SUBCUT SCH (06:00)
[2018-04-12] MEDS ORDERED: LIDOCAINE 1% INJ-PF (10 MG/ML) 30 ML SDV ONE (08:30)
[2018-04-12] MEDS ORDERED: LIDOCAINE 1%/EPINEPHRINE INJ 20 ML VIAL INJ ONE ×2 (09:00→17:00)
[2018-04-12] MEDS ORDERED: SODIUM CHLORIDE 3% FOR INHALATION 15 ML AMPUL NEB ONE (09:35)
[2018-04-12] MEDS: IPRATROPIUM/ALBUTEROL 0.5-2.5 MG/3 ML AMPUL NEB PRN ×2 (09:38→17:52)
[2018-04-12] MEDS ORDERED: ROPINIROLE HCL 0.25 MG TABLET PO SCH (10:00)
[2018-04-12] MEDS: DULOXETINE HCL 30 MG CAPSULE.DR PO SCH (10:18)
[2018-04-12] MEDS: FOLIC ACID/VITAMIN B COMP W-C CAPSULE PO SCH (10:18)
[2018-04-12] MEDS: AMLODIPINE BESYLATE 5 MG TABLET PO SCH ×2 (10:18→21:05)
[2018-04-12] MEDS: CINACALCET HCL 30 MG TABLET PO SCH (10:18)
[2018-04-12] MEDS: DOCUSATE SODIUM 100 MG CAPSULE PO SCH ×2 (10:18→20:14)
[2018-04-12] MEDS: SEVELAMER HCL 400 MG TABLET PO SCH ×3 (10:24→20:14)
--- NOTE | 2018-04-12 10:39 | EKG REPORT ---
SEVERITY:- ABNORMAL ECG - ATRIAL FIBRILLATION PROBABLE LVH WITH SECONDARY REPOL ABNRM : Confirmed by: Angel Rivera MD 12-Apr-2018 10:39:10
[2018-04-12] MEDS ORDERED: NORMAL SALINE 250 ML IV PRN ×2 (10:41)
[2018-04-12] MEDS ORDERED: NORMAL SALINE INJ/PF 0.9% 10 ML SDV IV PRN (10:41)
[2018-04-12] MEDS ORDERED: FUROSEMIDE INJ/PF 20 MG/2 ML SDV IV PRN (10:41)
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
--- NOTE | 2018-04-12 16:37 | PDOC PROGRESS REPORT ---
Subjective Progress Note for:: 04/12/18 Subjective:: MARE WATERS is a 82 year old female with a past medical history of end-stage renal failure on hemodialysis Saturday with Dr. Pascual, lower extremity DVT on chronic anticoagulation, coronary artery disease, systolic heart murmur, COPD, insulin-dependent diabetes, arthritis, depression and anxiety. Patient presents with 2 weeks of worsening shortness of breath prompting seek evaluation emergency room. She is found to have a large right- sided pleural effusion by CT and referred to the hospitalist for admission. She is placed on supplemental oxygen with resolution of symptoms. Patient has tolerated regular sessions of dialysis and continues to have minimal urine output. She denies chest pain, nausea vomiting, recent change in medications. Reason For Visit: SOB ESRD, LG R PLEURAL EFF scheduled for thoracentesis Physical Exam Vital Signs: Temp Pulse Resp BP Pulse Ox 98.1 F 96 18 149/81 H 96 04/12/18 15:30 04/12/18 16:28 04/12/18 16:28 04/12/18 15:30 04/12/18 16:28 Intake & Output 04/11/18 04/12/18 04/13/18 06:59 06:59 06:59 Intake Total 118 412 Balance 118 412 Weight 59.3 kg General appearance: PRESENT: no acute distress, other - Elderly and frail Head exam: PRESENT: atraumatic, normocephalic Eye exam: PRESENT: conjunctiva pink, EOMI, PERRLA. ABSENT: scleral icterus Ear exam: PRESENT: normal external ear exam Mouth exam: PRESENT: moist, tongue midline Neck exam: ABSENT: carotid bruit, JVD, lymphadenopathy, thyromegaly Respiratory exam: PRESENT: decreased breath sounds - Right lung, rales, unlabored. ABSENT: rhonchi, wheezes Cardiovascular exam: PRESENT: RRR. ABSENT: diastolic murmur, rubs, systolic murmur Pulses: PRESENT: normal dorsalis pedis pul Vascular exam: PRESENT: normal capillary refill GI/Abdominal exam: PRESENT: normal bowel sounds, soft. ABSENT: distended, guarding, mass, organolmegaly, rebound, tenderness Rectal exam: PRESENT: deferred Extremities exam: PRESENT: full ROM. ABSENT: calf tenderness, clubbing, pedal edema Neurological exam: PRESENT: alert, awake, oriented to person, oriented to place , oriented to time, oriented to situation, CN II-XII grossly intact. ABSENT: motor sensory deficit Psychiatric exam: PRESENT: appropriate affect, normal mood. ABSENT: homicidal ideation, suicidal ideation Skin exam: PRESENT: dry, intact, warm. ABSENT: cyanosis, rash Results Laboratory Results: 04/12/18 04:14 04/12/18 09:32 04/12/18 04/12/18 04/12/18 04:14 04:14 09:32 WBC 7.2 RBC 3.80 Hgb 10.8 L Hct 32.5 L MCV 86 MCH 28.5 MCHC 33.3 RDW 17.0 H Plt Count 161 Seg Neutrophils % 80.2 H Lymphocytes % 11.4 L Monocytes % 6.4 Eosinophils % 1.2 Basophils % 0.8 Absolute Neutrophils 5.8 Absolute Lymphocytes 0.8 Absolute Monocytes 0.5 Absolute Eosinophils 0.1 Absolute Basophils 0.1 Sodium 142.0 Potassium 3.9 Chloride 100 Carbon Dioxide 28 Anion Gap 14 BUN 34 H Creatinine 2.66 H Est GFR ( Amer) 21 L Est GFR (Non-Af Amer) 17 L Glucose 156 H 242 H Calcium 8.8 Total Protein 6.0 L Blood Type Antibody Screen 04/12/18 11:03 WBC RBC Hgb Hct MCV MCH MCHC RDW Plt Count Seg Neutrophils % Lymphocytes % Monocytes % Eosinophils % Basophils % Absolute Neutrophils Absolute Lymphocytes Absolute Monocytes Absolute Eosinophils Absolute Basophils Sodium Potassium Chloride Carbon Dioxide Anion Gap BUN Creatinine Est GFR ( Amer) Est GFR (Non-Af Amer) Glucose Calcium Total Protein Blood Type A NEGATIVE Antibody Screen NEGATIVE Impressions: Chest X-Ray 04/11/18 21:05 IMPRESSION: Significantly increased right basilar airspace opacity-effusion. Left lung shows mild subsegmental atelectasis laterally. Assessment & Plan - Diagnosis (1) Pleural effusion, right Is this a current diagnosis for this admission?: Yes Plan: Plan is for thoracentesis today. We will follow-up with pleural fluid analysis and culture once obtained (2) End stage renal failure on dialysis Is this a current diagnosis for this admission?: Yes Plan: Her last dialysis was yesterday, she is on a Sat schedule - Time Time Spent with patient: 15-24 minutes Medications reviewed and adjusted accordingly: Yes Anticipated discharge: SNF - Inpatient Certification Based on my medical assessment, after consideration of the patient's comorbidities, presenting symptoms, or acuity I expect that the services needed warrant INPATIENT care.: Yes Medical Necessity: Need Close Monitoring Due to Risk of Patient Decompensation, Risk of Complication if Not Cared For in Hospital
[2018-04-12 18:02] LABS: INTERNATIONAL RATION (INR) 1.49; PROTHROMBIN TIME 18.8 SEC (11.4-15.4)
[2018-04-12 18:03] LABS: PARTIAL THROMBOPLASTIN TIME 34.4 SEC (23.5-35.8)
--- NOTE | 2018-04-12 19:15 | Operative Report ---
Nonrecallable Operative Report DATE OF SURGERY: 04/12/18 PREOPERATIVE DIAGNOSIS: right pleural effusion POSTOPERATIVE DIAGNOSIS: same OPERATION: right pleurodesis SURGEON: [place]ER [place] ANESTHESIA: Local TISSUE REMOVED OR ALTERED: 1,400 mL clear, light yellow pleural fluid COMPLICATIONS: none ESTIMATED BLOOD LOSS: n/a INTRAOPERATIVE FINDINGS: 1,400 mL clear yellow pleural fluid PROCEDURE: see dictation
[2018-04-12] MEDS ORDERED: DEXTROSE 50%-WATER SYRINGE 12.5 GM/25 ML DOSE IV PRN (19:55)
[2018-04-12] MEDS ORDERED: DEXTROSE 40% GEL 15 GM TUBE PO PRN (19:55)
[2018-04-12] MEDS ORDERED: DEXTROSE 40% GEL 15 GM TUBE X 2 PO PRN (19:55)
[2018-04-12] MEDS ORDERED: GLUCAGON,HUMAN RECOMB 1 MG INJ IM PRN (19:55)
[2018-04-12] MEDS ORDERED: DEXTROSE 50%-WATER SYRINGE 25 GM/50 ML DOSE IV PRN (19:55)
[2018-04-12] MEDS: ROPINIROLE HCL 1 MG TABLET PO SCH (20:11)
--- NOTE | 2018-04-12 20:17 | RADIOLOGY REPORT (SQ) ---
EXAM DESCRIPTION: CHEST SINGLE VIEW COMPLETED DATE/TIME: 04/12/2018 8:05 pm REASON FOR STUDY: s/p right pleurodesis COMPARISON: 04/11/2018 EXAM PARAMETERS: NUMBER OF VIEWS: One view. TECHNIQUE: Single frontal radiographic view of the chest acquired. RADIATION DOSE: NA LIMITATIONS: None. FINDINGS: LUNGS AND PLEURA: Improved radiographic appearance of the chest demonstrating near complet e drainage of a previously described left lower lobe pleural effusion. Left lung base atelectasis ve rsus consolidation. No pneumothorax. MEDIASTINUM AND HILAR STRUCTURES: No masses. Contour normal. HEART AND VASCULAR STRUCTURES: Cardiomegaly. Normal vasculature. BONES: No acute findings. HARDWARE: None in the chest. OTHER: No other significant finding. IMPRESSION: Status post pleurodesis demonstrating decreased volume of a right-sided pleural effusion . No pneumothorax. TECHNICAL DOCUMENTATION: JOB ID: [id number] [employer]- All Rights Reserved Reading location - IP/workstation name: [email or web address]
[2018-04-12 20:36] LABS: FLUID TYPE PLEURAL
[2018-04-12 20:37] LABS: FLUID COLOR STRAW; FLUID SOURCE LUNG
[2018-04-12 20:38] LABS: FLUID APPEARANCE HAZY; FLUID VISCOSITY LIQUID
[2018-04-12] MEDS: INSULIN LISPRO 100 UNIT/ML 3 ML VIAL SUBCUT PRN (21:06)
[2018-04-12] MEDS: DONEPEZIL HCL 5 MG TABLET PO SCH (21:06)
[2018-04-13] MEDS: CLONIDINE HCL 0.1 MG TABLET PO SCH ×3 (06:01→21:15)
[2018-04-13] MEDS: CINACALCET HCL 30 MG TABLET PO SCH (09:30)
[2018-04-13] MEDS: SEVELAMER HCL 400 MG TABLET PO SCH ×3 (09:31→18:44)
[2018-04-13] MEDS: DOCUSATE SODIUM 100 MG CAPSULE PO SCH ×2 (09:31→18:42)
[2018-04-13] MEDS: AMLODIPINE BESYLATE 5 MG TABLET PO SCH ×2 (09:31→21:15)
[2018-04-13] MEDS: FOLIC ACID/VITAMIN B COMP W-C CAPSULE PO SCH (09:31)
[2018-04-13] MEDS: DULOXETINE HCL 30 MG CAPSULE.DR PO SCH (09:31)
--- NOTE | 2018-04-13 11:16 | PDOC PROGRESS REPORT ---
Subjective Progress Note for:: 04/13/18 Subjective:: MARE WATERS is a 82 year old female with a past medical history of end-stage renal failure on hemodialysis Saturday with Dr. Pascual, lower extremity DVT on chronic anticoagulation, coronary artery disease, systolic heart murmur, COPD, insulin-dependent diabetes, arthritis, depression and anxiety. Patient presents with 2 weeks of worsening shortness of breath prompting seek evaluation emergency room. She is found to have a large right- sided pleural effusion by CT and referred to the hospitalist for admission. She is placed on supplemental oxygen with resolution of symptoms. Patient has tolerated regular sessions of dialysis and continues to have minimal urine output. She denies chest pain, nausea vomiting, recent change in medications. She states that her breathing is improved Reason For Visit: SOB ESRD, LG R PLEURAL EFF Physical Exam Vital Signs: Temp Pulse Resp BP Pulse Ox 98.3 F 95 16 170/66 H 90 L 04/13/18 07:17 04/13/18 09:53 04/13/18 09:53 04/13/18 07:17 04/13/18 09:53 Intake & Output 04/12/18 04/13/18 04/14/18 06:59 06:59 06:59 Intake Total 118 1285 Balance 118 1285 Weight 59.3 kg 62.7 kg General appearance: PRESENT: no acute distress, other - Elderly and frail Head exam: PRESENT: atraumatic Ear exam: PRESENT: normal external ear exam Respiratory exam: PRESENT: decreased breath sounds - Right side, unlabored. ABSENT: accessory muscle use, clear to auscultation korina, tachypnea, wheezes Cardiovascular exam: PRESENT: RRR. ABSENT: diastolic murmur, rubs, systolic murmur GI/Abdominal exam: PRESENT: normal bowel sounds, soft. ABSENT: distended, guarding, mass, organolmegaly, rebound, tenderness Rectal exam: PRESENT: deferred Extremities exam: PRESENT: full ROM, other - Left upper extremity shunt. ABSENT : calf tenderness, clubbing, pedal edema Neurological exam: PRESENT: alert, awake, oriented to person, oriented to place , oriented to time, oriented to situation, CN II-XII grossly intact. ABSENT: motor sensory deficit Results Laboratory Results: 04/12/18 04:14 04/12/18 09:32 04/12/18 04/12/18 04/12/18 11:03 19:15 19:15 Fluid Type PLEURAL Fluid Source LUNG Fluid Color STRAW Fluid Appearance HAZY Fluid Viscosity LIQUID Fluid WBC 21 Fluid RBC 1260 Fluid Total Protein Cancelled Fluid Amylase Blood Type A NEGATIVE Antibody Screen NEGATIVE 04/12/18 19:15 Fluid Type Fluid Source Fluid Color Fluid Appearance Fluid Viscosity Fluid WBC Fluid RBC Fluid Total Protein Fluid Amylase Cancelled Blood Type Antibody Screen Impressions: Chest X-Ray 04/12/18 00:00 IMPRESSION: Status post pleurodesis demonstrating decreased volume of a right- sided pleural effusion. No pneumothorax. Assessment & Plan - Diagnosis (1) Pleural effusion, right Is this a current diagnosis for this admission?: Yes Plan: 1.4 L of fluid removed from a thoracentesis. Analysis is still pending. It is bloody and does not appear to be infected but very minimal WBCs. Will follow up on glucose, LDH and cultures as well as cytology. She has had symptomatic relief (2) End stage renal failure on dialysis Is this a current diagnosis for this admission?: Yes Plan: For dialysis on Saturday schedule - Time Time Spent with patient: 15-24 minutes Medications reviewed and adjusted accordingly: Yes Anticipated discharge: SNF Within: within 72 hours - Inpatient Certification Based on my medical assessment, after consideration of the patient's comorbidities, presenting symptoms, or acuity I expect that the services needed warrant INPATIENT care.: Yes Medical Necessity: Need Close Monitoring Due to Risk of Patient Decompensation, Risk of Complication if Not Cared For in Hospital
--- NOTE | 2018-04-13 12:07 | PDOC PROGRESS REPORT ---
Subjective Progress Note for:: 04/13/18 Subjective:: comfortable, no shortness of breath Reason For Visit: SOB ESRD, LG R PLEURAL EFF Physical Exam Vital Signs: Temp Pulse Resp BP Pulse Ox 98.3 F 95 16 170/66 H 90 L 04/13/18 07:17 04/13/18 09:53 04/13/18 09:53 04/13/18 07:17 04/13/18 09:53 Intake & Output 04/12/18 04/13/18 04/14/18 06:59 06:59 06:59 Intake Total 118 1285 326 Balance 118 1285 326 Weight 59.3 kg 62.7 kg General appearance: PRESENT: no acute distress, other - normal breathing pattern Respiratory exam: PRESENT: clear to auscultation korina, other - pleurodesis site clean, no edema Cardiovascular exam: PRESENT: RRR Results Laboratory Results: 04/12/18 04:14 04/12/18 09:32 04/12/18 04/12/18 04/12/18 11:03 19:15 19:15 Fluid Type PLEURAL Fluid Source LUNG Fluid Color STRAW Fluid Appearance HAZY Fluid Viscosity LIQUID Fluid WBC 21 Fluid RBC 1260 Fluid Total Protein Cancelled Fluid Amylase Blood Type A NEGATIVE Antibody Screen NEGATIVE 04/12/18 19:15 Fluid Type Fluid Source Fluid Color Fluid Appearance Fluid Viscosity Fluid WBC Fluid RBC Fluid Total Protein Fluid Amylase Cancelled Blood Type Antibody Screen Impressions: Chest X-Ray 04/12/18 00:00 IMPRESSION: Status post pleurodesis demonstrating decreased volume of a right- sided pleural effusion. No pneumothorax. Assessment & Plan - Diagnosis (1) Pleural effusion, right Is this a current diagnosis for this admission?: Yes (2) Right lower lobe pneumonia Qualifiers: Pneumonia type: due to unspecified organism Qualified Code(s): J18.1 - Lobar pneumonia, unspecified organism Is this a current diagnosis for this admission?: Yes - Plan Summary Plan Summary: A/ POD #1 after right pleurodesis, 1,400 mL of clear light yellow fluid removed Chest Xray don on shows improvement of right chest appearance with no complications PE: lungs clear bilaterally Breathing pattern much improved P/ I will sign off, please call me with questions
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
[2018-04-13] MEDS: PROMETHAZINE HCL INJ 25 MG/1 ML VIAL IV PRN (15:44)
[2018-04-13] MEDS: ROPINIROLE HCL 1 MG TABLET PO SCH (18:42)
[2018-04-13] MEDS: INSULIN LISPRO 100 UNIT/ML 3 ML VIAL SUBCUT PRN ×2 (18:42→21:15)
[2018-04-13] MEDS: DONEPEZIL HCL 5 MG TABLET PO SCH (21:15)
[2018-04-14] MEDS: CLONIDINE HCL 0.1 MG TABLET PO SCH ×3 (05:52→22:00)
[2018-04-14] MEDS: SEVELAMER HCL 400 MG TABLET PO SCH ×3 (07:24→18:34)
--- NOTE | 2018-04-14 11:50 | PDOC PROGRESS REPORT ---
Subjective Progress Note for:: 04/14/18 Subjective:: MARE WATERS is a 82 year old female with a past medical history of end-stage renal failure on hemodialysis Saturday with Dr. Pascual, lower extremity DVT on chronic anticoagulation, coronary artery disease, systolic heart murmur, COPD, insulin-dependent diabetes, arthritis, depression and anxiety. Patient presents with 2 weeks of worsening shortness of breath prompting seek evaluation emergency room. She is found to have a large right- sided pleural effusion by CT and referred to the hospitalist for admission. She is placed on supplemental oxygen with resolution of symptoms. Patient has tolerated regular sessions of dialysis and continues to have minimal urine output. She denies chest pain, nausea vomiting, recent change in medications. She states that her breathing is improved She has been off oxygen and remains non-hypoxemic. She is apparently limited in her ambulation. Cytology and other fluid analysis is still pending. Patient is currently receiving dialysis and if she remains stable she probably can be discharged back to long-term in a.m. after analysis of fluid done. She may need the repeat chest x-ray prior to discharge Reason For Visit: SOB ESRD, LG R PLEURAL EFF Physical Exam Vital Signs: Temp Pulse Resp BP Pulse Ox 97.6 F 84 18 138/65 H 94 04/14/18 07:20 04/14/18 07:20 04/14/18 07:20 04/14/18 07:20 04/14/18 07:20 Intake & Output 04/13/18 04/14/18 04/15/18 06:59 06:59 06:59 Intake Total 1285 736 Balance 1285 736 Weight 62.7 kg 62.4 kg General appearance: PRESENT: no acute distress, other - Elderly and frail Head exam: PRESENT: atraumatic, normocephalic Eye exam: PRESENT: conjunctiva pink, EOMI, PERRLA. ABSENT: scleral icterus Ear exam: PRESENT: normal external ear exam Mouth exam: PRESENT: moist, tongue midline Neck exam: ABSENT: carotid bruit, JVD, lymphadenopathy, thyromegaly Respiratory exam: PRESENT: decreased breath sounds - On the right. ABSENT: rales, rhonchi, wheezes Cardiovascular exam: PRESENT: RRR. ABSENT: diastolic murmur, rubs, systolic murmur Pulses: PRESENT: normal dorsalis pedis pul Vascular exam: PRESENT: normal capillary refill GI/Abdominal exam: PRESENT: normal bowel sounds, soft. ABSENT: distended, guarding, mass, organolmegaly, rebound, tenderness Rectal exam: PRESENT: deferred Extremities exam: PRESENT: full ROM. ABSENT: calf tenderness, clubbing, pedal edema Neurological exam: PRESENT: alert, awake, oriented to person, oriented to place , oriented to time, oriented to situation, CN II-XII grossly intact Psychiatric exam: PRESENT: appropriate affect, normal mood. ABSENT: homicidal ideation, suicidal ideation Skin exam: PRESENT: dry, intact, warm. ABSENT: cyanosis, rash Results Laboratory Results: 04/12/18 04:14 04/12/18 09:32 04/12/18 04/12/18 19:15 19:15 Fluid Glucose 192 Fluid LDH 66 Impressions: Chest X-Ray 04/12/18 00:00 IMPRESSION: Status post pleurodesis demonstrating decreased volume of a right- sided pleural effusion. No pneumothorax. Assessment & Plan - Diagnosis (1) Pleural effusion, right Is this a current diagnosis for this admission?: Yes Plan: Follow-up culture results. Patient is status post pleurodesis. Of note this was a bloody effusion based on the RBC. I will obtain an echocardiogram to rule out a cardiac cause of the pleural effusion. (2) End stage renal failure on dialysis Is this a current diagnosis for this admission?: Yes (3) Deep vein thrombosis (DVT) Is this a current diagnosis for this admission?: Yes Plan: Patient has a history of DVT and had been on Coumadin prior to admission. This was held and she actually received FFP prior to thoracentesis. Will restart her Coumadin at this time - Time Time Spent with patient: 15-24 minutes Medications reviewed and adjusted accordingly: Yes Anticipated discharge: SNF Within: within 48 hours - Inpatient Certification Based on my medical assessment, after consideration of the patient's comorbidities, presenting symptoms, or acuity I expect that the services needed warrant INPATIENT care.: Yes Medical Necessity: Significant Comorbidiites Make Outpatient Treatment Too Risky , Need Close Monitoring Due to Risk of Patient Decompensation
[2018-04-14] MEDS: FOLIC ACID/VITAMIN B COMP W-C CAPSULE PO SCH (13:40)
[2018-04-14] MEDS: CINACALCET HCL 30 MG TABLET PO SCH (13:41)
[2018-04-14] MEDS: DULOXETINE HCL 30 MG CAPSULE.DR PO SCH (13:41)
[2018-04-14] MEDS: DOCUSATE SODIUM 100 MG CAPSULE PO SCH ×2 (13:42→18:34)
[2018-04-14] MEDS: AMLODIPINE BESYLATE 5 MG TABLET PO SCH ×2 (13:42→22:00)
--- NOTE | 2018-04-14 17:09 | RADIOLOGY REPORT (SQ) ---
EXAM DESCRIPTION: WRIST LEFT 3 VIEWS COMPLETED DATE/TIME: 04/14/2018 4:59 pm REASON FOR STUDY: Pain in extremity COMPARISON: None. NUMBER OF VIEWS: Three views. TECHNIQUE: AP, lateral, and oblique radiographic images acquired of the left wrist. LIMITATIONS: None. FINDINGS: MINERALIZATION: Severe osteopenia. BONES: No acute fracture or dislocation. No worrisome bone lesions. Normal alignment. SOFT TISSUES: No soft tissue swelling. No foreign body. OTHER: No other significant finding. IMPRESSION: Severe osteopenia. No acute findings. TECHNICAL DOCUMENTATION: JOB ID: [id number] [employer]- All Rights Reserved Reading location - IP/workstation name: [email or web address]
--- NOTE | 2018-04-14 17:13 | RADIOLOGY REPORT (SQ) ---
EXAM DESCRIPTION: HAND LEFT 3 VIEWS COMPLETED DATE/TIME: 04/14/2018 4:59 pm REASON FOR STUDY: Pain in extremity trauma to her hand COMPARISON: None. EXAM PARAMETERS: NUMBER OF VIEWS: Three views. TECHNIQUE: AP, lateral and oblique radiographic images acquired of the left hand. LIMITATIONS: None. FINDINGS: MINERALIZATION: Severe osteopenia. BONES: No acute fracture or dislocation. No worrisome bone lesions. JOINTS: No effusions. SOFT TISSUES: No soft tissue swelling. No foreign body. OTHER: No other significant finding. IMPRESSION: Severe osteopenia. No obvious fracture. TECHNICAL DOCUMENTATION: JOB ID: [id number] [employer]- All Rights Reserved Reading location - IP/workstation name: [email or web address]
[2018-04-14] MEDS: ROPINIROLE HCL 1 MG TABLET PO SCH (18:34)
--- NOTE | 2018-04-14 18:40 | XCELERA REPORT ---
[address] [address] Transthoracic Echocardiogram Report Name: JORGE LUIS WATERS Age: 82 yrs Gender: Female : 1935 Patient Status: Inpatient Patient Location: [address] [place] [address] Study Date: 04/14/2018 02:31 PM Reason For Study: Pleural Effusion Ordering Physician: CAITIE PATEL Performed By: Valerie Mac Interpretation Summary The left ventricle is grossly normal size. There is normal left ventricular wall thickness. No True 2 chamber apical views obtained.Hence cannot comment on the apical and basal anterior pennington, and the apical and basal inferior pennington.The mid anterior and the mid inferior and the rest of the pennington show mild diffuse hypokinesis.No LVH.LVEF is mildly reduced at 45% to 50%. Doppler measurements suggest pseudonormalized left ventricular relaxation, which is associated with grade II/IV or mild to moderate diastolic dysfunction There is no thrombus. The right ventricle is mild to moderately dilated. The right ventricle is not well visualized secondary to technical limitations The right ventricular systolic function is mildly reduced. The right atrium is mildly dilated. The left atrium is mildly dilated. The interatrial septum is intact with no evidence for an atrial septal defect. There is no evidence of mitral valve prolapse. There is no vegetation seen on the mitral valve. There is mild mitral stenosis There is a moderate amount of mitral regurgitation There is no aortic valvular vegetation. There is severe aortic stenosis There is a peak gradient of 44.3 mm of Hg , and mean gradient of 28.4 mm of Hg. There is a mild amount of aortic regurgitation There is no tricuspid stenosis. There is a moderate amount of tricuspid regurgitation There is moderate pulmonary hypertension by echo RVSP is 47b to 52 mm of Hg , with RA mean of 5 to 10. The inferior vena cava appeared normal and decreased > 50% with respiration (RAP 5-10 mmHg) Moderate size left pleural effusion. MMode/2D Measurements & Calculations RVDd: 4.1 cm LVIDd: 4.5 cm FS: 16.2 % Ao root diam: 2.9 cm IVSd: 1.1 cm LVIDs: 3.7 cm EDV(Teich): 90.8 ml Ao root area: 6.6 cm2 LVPWd: 0.92 cmESV(Teich): 59.8 ml EF(Teich): 34.2 % LVOT diam: 1.7 cm LVOT area: 2.3 cm2 Doppler Measurements & Calculations MV E max ricardo: MV V2 max: MV dec slope: Ao V2 max: 192.7 cm/sec 190.4 cm/sec 331.3 cm/sec MV A max ricardo: MV max P.0 cm/sec2 Ao max P.6 cm/sec 14.5 mmHg MV dec time: 44.3 mmHg MV E/A: 6.3 MV V2 mean: 0.28 sec Ao V2 mean: 92.3 cm/sec 253.2 cm/sec MV mean PG: Ao mean P.5 mmHg 28.4 mmHg MV V2 VTI: Ao V2 VTI: 40.0 cm 73.5 cm RUTH(V,D): 0.57 cm2 AI max ricardo: LV V1 max PG: MR max ricardo: PA V2 max: 352.0 cm/sec 2.7 mmHg 589.7 cm/sec 98.6 cm/sec AI max PG: LV V1 max: MR max PG: PA max P.7 mmHg 82.7 cm/sec 139.1 mmHg 3.9 mmHg AI dec slope: 264.5 cm/sec2 AI P1/2t: 389.7 msec TR max ricardo: 318.1 cm/sec TR max P.5 mmHg Left Ventricle The left ventricle is grossly normal size. There is normal left ventricular wall thickness. No True 2 chamber apical views obtained.Hence cannot comment on the apical and basal anterior pennington, and the apical and basal inferior pennington.The mid anterior and the mid inferior and the rest of the pennington show mild diffuse hypokinesis.No LVH.LVEF is mildly reduced at 45% to 50%. Doppler measurements suggest pseudonormalized left ventricular relaxation, which is associated with grade II/IV or mild to moderate diastolic dysfunction. There is no thrombus. There is no ventricular septal defect visualized. Right Ventricle The right ventricle is mild to moderately dilated. The right ventricle is not well visualized secondary to technical limitations. The right ventricular systolic function is mildly reduced. Atria The right atrium is mildly dilated. The left atrium is mildly dilated. The interatrial septum is intact with no evidence for an atrial septal defect. Mitral Valve There is moderate mitral annular calcification. There is no evidence of mitral valve prolapse. There is no vegetation seen on the mitral valve. There is mild mitral stenosis. There is a moderate amount of mitral regurgitation. Aortic Valve There is no aortic valvular vegetation. There is severe aortic stenosis. There is a peak gradient of 44.3 mm of Hg , and mean gradient of 28.4 mm of Hg. There is no LVOT obstruction. There is a mild amount of aortic regurgitation. Tricuspid Valve There is no tricuspid stenosis. There is a moderate amount of tricuspid regurgitation. There is moderate pulmonary hypertension by echo. RVSP is 47b to 52 mm of Hg , with RA mean of 5 to 10. Pulmonic Valve There is no pulmonic valvular stenosis. There is no pulmonic valvular regurgitation. Great Vessels The aortic root is not well visualized but is probably normal size. The inferior vena cava appeared normal and decreased > 50% with respiration (RAP 5-10 mmHg). Effusions There is no pericardial effusion. Moderate size left pleural effusion. : CAITIE PATEL > Jade Gibson
[2018-04-14] MEDS ORDERED: WARFARIN SODIUM 7.5 MG TABLET PO SCH (22:00)
[2018-04-14] MEDS: DONEPEZIL HCL 5 MG TABLET PO SCH (22:01)
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
[2018-04-14] MEDS: INSULIN LISPRO 100 UNIT/ML 3 ML VIAL SUBCUT PRN (22:14)
[2018-04-15] MEDS: CLONIDINE HCL 0.1 MG TABLET PO SCH ×2 (05:35→14:05)
[2018-04-15 05:39] LABS: INTERNATIONAL RATION (INR) 1.24; PROTHROMBIN TIME 16.3 SEC (11.4-15.4)
--- NOTE | 2018-04-15 08:24 | OPERATIVE REPORT E ---
Operative Report NAME: JORGE LUIS WATERS : 1935 AGE: 82Y DATE OF SURGERY: 04/12/2018 ROOM: 302 PREOPERATIVE DIAGNOSES: 1. RIGHT MODERATELY ENLARGED PLEURAL EFFUSION. 2. DYSPNEA. 3. PNEUMONIA, RIGHT SIDE, RECURRENT. POSTOPERATIVE DIAGNOSES: 1. RIGHT MODERATELY ENLARGED PLEURAL EFFUSION. 2. DYSPNEA. 3. PNEUMONIA, RIGHT SIDE, RECURRENT. OPERATION: Right pleurodesis. SURGEON: EVER MONTANA M.D. UTILITY SYSTEM OPERATOR: None. BLEEDING: None. COMPLICATIONS: None. ANESTHESIA: Ten mL of 1% lidocaine with epinephrine. INDICATIONS AND FINDINGS: This is an 82-year-old female with a history of recurrent bilateral pneumonia. Recently admitted to hospital with shortness of breath. Found to have a very large right pleural effusion causing the patient dyspnea. A decision was made to insert a pleural catheter into pleural effusion. PROCEDURE: The procedure was done at bedside. The patient was placed in a sitting up position while she was hugging two pillows. The right side of the back was inspected and percussion was performed along the mid scapular line along the scapular spine and place of obtunded sound and placed just below the area of dull percussion was identified and marked with surgical marker. This area was then prepped and draped in the usual fashion and preceded with lidocaine. A incision was made with a #11 blade, and a needle was then inserted into pleural cavity until fluid was obtained. The catheter was then advanced over the needle into right chest wall. The needle was removed. The catheter was connected to a negative pressure vacuum bottle and about mL of clear yellow fluid was obtained. When this was accomplished, the suction was interrupted, the catheter was removed and the area was covered with a large Band-Aid. The patient tolerated the procedure well and she was requested to examine the area . DICTATING PHYSICIAN: EVER MONTANA M.D. [id number] PHY#: [id number] ID: [id number] JOB#: [id number] ACCT: [id number] cc:EVER MONTANA M.D. >
[2018-04-15] MEDS: SEVELAMER HCL 400 MG TABLET PO SCH ×3 (08:43→18:00)
[2018-04-15] MEDS: DOCUSATE SODIUM 100 MG CAPSULE PO SCH ×2 (09:39→17:57)
[2018-04-15] MEDS: FOLIC ACID/VITAMIN B COMP W-C CAPSULE PO SCH (09:39)
[2018-04-15] MEDS: CINACALCET HCL 30 MG TABLET PO SCH (09:39)
[2018-04-15] MEDS: DULOXETINE HCL 30 MG CAPSULE.DR PO SCH (09:39)
[2018-04-15] MEDS: AMLODIPINE BESYLATE 5 MG TABLET PO SCH (09:39)
--- NOTE | 2018-04-15 11:04 | PDOC DISCHARGE SUMMARY ---
General - Admit/Disc Date/PCP Admission Date/Primary Care Provider: 04/11/18 23:50 LOW FARIAS, DO Discharge Date: 04/15/18 - Discharge Diagnosis (1) Pleural effusion, right Is this a current diagnosis for this admission?: Yes Summary: Likely transudative effusion secondary to end-stage renal disease status post thoracentesis and pleurodesis (2) End stage renal failure on dialysis Is this a current diagnosis for this admission?: Yes (3) Deep vein thrombosis (DVT) Is this a current diagnosis for this admission?: Yes (4) Aortic stenosis, severe Is this a current diagnosis for this admission?: Yes (5) Respiratory distress Is this a current diagnosis for this admission?: Yes Summary: #2 pleural effusion which has resolved - Additional Information Resuscitation Status: Do Not Resuscitate Discharge Activity: Activity As Tolerated Home Medications: Acetaminophen [Tylenol 325 mg Tablet] 650 mg PO QHS 04/12/18 Albuterol Sulfate [Albuterol Sulfate 2.5mg/3 mL] 1 vial IH Q4HP PRN 04/12/18 Amlodipine Besylate [Norvasc 5 mg Tablet] 5 mg PO Q12 04/12/18 Calcitriol [Rocaltrol 0.25 mcg Capsule] 0.25 mcg PO SUTUTHSA@1000 04/12/18 Cinacalcet HCl [Sensipar 30 mg Tablet] 30 mg PO DAILY 04/12/18 Clonidine HCl [Catapres 0.1 mg Tablet] 0.1 mg PO Q8 04/12/18 Docusate Sodium [Colace 100 mg Capsule] 100 mg PO DAILY 04/12/18 Donepezil HCl [Aricept] 10 mg PO QHS 04/12/18 Duloxetine HCl [Cymbalta] 30 mg PO DAILY 04/12/18 Fexofenadine HCl [Zenaida] 180 mg PO DAILY 04/12/18 Folic Acid/Vitamin B Comp W-C [Nephrocaps Multiple Vitamin Capsule] 1 cap PO DAILY 04/12/18 Guaifenesin [Robitussin Syrup 200 mg/10 ml Ud Cup] 200 mg PO Q4HP PRN 04/12/18 Insulin Aspart [Novolog Insulin (Aspart) 100 unit/mL] 0 unit SUBCUT .SLD SCALE 04/12/18 Insulin Glargine,Hum.rec.anlog [Basaglar Kwikpen U-100] 8 unit SQ DAILY Lidocaine [Lidoderm 5% (700 mg) Transdermal Patch] 1 patch TP DAILY 04/12/18 Memantine HCl [Namenda Xr] 14 mg PO DAILY 04/12/18 Nitroglycerin [Nitrostat 0.4 mg (1/150 Gr) Tabs 25/Bottle] 1 tab SL Q5MP PRN 04/23 Polyvinyl Alcohol [Artificial Tears] 1 drop OU QIDP PRN 04/12/18 Ropinirole HCl [Requip] 0.5 mg PO DAILY 04/12/18 Sevelamer Carbonate [Renvela] 2,400 mg PO MEALS 04/12/18 Trazodone HCl [Desyrel 50 mg Tablet] 50 mg PO QHS 04/12/18 Triamcinolone Acetonide [Aristocort 0.5% Cream 15 gm] 1 applic TP BID 04/12/18 Warfarin Sodium [Coumadin 7.5 mg Tablet] 7.5 mg PO QHS 04/12/18 Amlodipine Besylate [Norvasc 5 mg Tablet] 5 mg PO Q12 tablet 04/15/18 Cinacalcet HCl [Sensipar 30 mg Tablet] 30 mg PO DAILY tablet 04/15/18 Clonidine HCl [Catapres 0.1 mg Tablet] 0.1 mg PO Q8 tablet 04/15/18 History of Present Illness History of Present Illness: JORGE LUIS WATERS is a 82 year old female with a past medical history of end-stage renal failure on hemodialysis Saturday with Dr. Pascual, lower extremity DVT on chronic anticoagulation, coronary artery disease, systolic heart murmur, COPD, insulin- dependent diabetes, arthritis, depression and anxiety. Patient presents with 2 weeks of worsening shortness of breath prompting seek evaluation emergency room. She is found to have a large right-sided pleural effusion by CT and referred to the hospitalist for admission. She is placed on supplemental oxygen with resolution of symptoms. Patient has tolerated regular sessions of dialysis and continues to have minimal urine output. She denies chest pain, nausea vomiting, recent change in medications Hospital Course Hospital Course: Patient was admitted to the medical unit and she subsequently had a thoracentesis done with removal of 1.4 L of bloody fluid. Luckily the fluid analysis as so far been grossly negative with no evidence of infection, and cytology was also negative. He did receive mesothelial cells only. Patient is also status post pleurodesis and repeat chest x-ray done today reveals no reaccumulation of pleural fluid. However respiratory failure has also improved with no increase in her oxygen requirement. She was seen by nephrology also and she received dialysis as per her usual schedule. Pulmonology and general surgery consults were also done. Please see their consultations for full details. Patient did receive fresh frozen plasma she was coagulopathic on admission secondary to Coumadin use. She has been restarted on Coumadin. Two- dimensional echocardiogram was done which did reveal severe aortic stenosis as well as a pleural effusion but no evidence of any other significant findings. I will suggest follow-up with her primary care physician for the aortic stenosis. Patient has remained hemodynamically stable I would no further interventions been planned and without resolution of presenting symptoms she is been discharged back to senior care. PT and INR would need to be monitored and Coumadin adjusted as she is currently subtherapeutic due to the Coumadin reversal prior to thoracentesis. Physical Exam Vital Signs: Temp Pulse Resp BP Pulse Ox 97.6 F 89 16 153/76 H 94 04/15/18 07:17 04/15/18 10:22 04/15/18 10:22 04/15/18 07:17 04/15/18 10:22 Intake & Output 04/14/18 04/15/18 04/16/18 06:59 06:59 06:59 Intake Total 736 263 Output Total 3100 Balance 736 -2837 Weight 62.4 kg 59.2 kg General appearance: PRESENT: no acute distress, well-developed Head exam: PRESENT: atraumatic, normocephalic Eye exam: PRESENT: conjunctiva pink, EOMI, PERRLA. ABSENT: scleral icterus Ear exam: PRESENT: normal external ear exam Mouth exam: PRESENT: moist, tongue midline Neck exam: ABSENT: carotid bruit, JVD, lymphadenopathy, thyromegaly Respiratory exam: PRESENT: clear to auscultation korina, rhonchi - few basal rhoncho. ABSENT: rales, wheezes Cardiovascular exam: PRESENT: RRR. ABSENT: diastolic murmur, rubs, systolic murmur - Grade 2/6 Pulses: PRESENT: normal dorsalis pedis pul Vascular exam: PRESENT: normal capillary refill GI/Abdominal exam: PRESENT: normal bowel sounds, soft. ABSENT: distended, guarding, mass, organolmegaly, rebound, tenderness Rectal exam: PRESENT: deferred Extremities exam: PRESENT: full ROM. ABSENT: calf tenderness, clubbing, pedal edema Neurological exam: PRESENT: alert, awake, oriented to person, oriented to place , oriented to time, oriented to situation, CN II-XII grossly intact. ABSENT: motor sensory deficit Psychiatric exam: PRESENT: appropriate affect, normal mood. ABSENT: homicidal ideation, suicidal ideation Skin exam: PRESENT: dry, intact, warm. ABSENT: cyanosis, rash Results Laboratory Results: 04/12/18 04:14 04/12/18 09:32 Impressions: Chest X-Ray 04/12/18 00:00 IMPRESSION: Status post pleurodesis demonstrating decreased volume of a right- sided pleural effusion. No pneumothorax. Hand X-Ray 04/14/18 00:00 IMPRESSION: Severe osteopenia. No obvious fracture. Wrist X-Ray 04/14/18 00:00 IMPRESSION: Severe osteopenia. No acute findings. Qualifiers - * PATIENT BEING DISCHARGED WITH ANY OF THE FOLLOWING DIAGNOSIS: No Plan Time Spent: Greater than 30 Minutes
--- NOTE | 2018-04-15 11:46 | RADIOLOGY REPORT (SQ) ---
EXAM DESCRIPTION: CHEST SINGLE VIEW COMPLETED DATE/TIME: 04/15/2018 11:29 am REASON FOR STUDY: Pleural effuion COMPARISON: None. EXAM PARAMETERS: NUMBER OF VIEWS: One view. TECHNIQUE: Single frontal radiographic view of the chest acquired. RADIATION DOSE: NA LIMITATIONS: None. FINDINGS: LUNGS AND PLEURA: No recurrent right pleural effusion. Minimal haziness left hemidiaphrag m. Cannot exclude small effusion or minimal atelectasis or infiltrate. Lungs otherwise clear. MEDIASTINUM AND HILAR STRUCTURES: No masses. Contour normal. HEART AND VASCULAR STRUCTURES: Heart normal in size. Normal vasculature. BONES: No acute findings. HARDWARE: None in the chest. OTHER: No other significant finding. IMPRESSION: No recurrent right pleural effusion. Minimal haziness left hemidiaphragm. See above fabiola gonzalez. TECHNICAL DOCUMENTATION: JOB ID: [id number] [employer]- All Rights Reserved Reading location - IP/workstation name: [email or web address]
[2018-04-15] MEDS ORDERED: BISACODYL 5 MG TABEC PO ONE (12:00)
[2018-04-15] MEDS: PROMETHAZINE HCL INJ 25 MG/1 ML VIAL IV PRN ×2 (12:55→18:11)
[2018-04-15] MEDS: INSULIN LISPRO 100 UNIT/ML 3 ML VIAL SUBCUT PRN (12:55)
--- NOTE | 2018-04-15 13:00 | PDOC PROGRESS REPORT ---
Subjective Progress Note for:: 04/15/18 Reason For Visit: SOB ESRD, LG R PLEURAL EFF Physical Exam Vital Signs: Temp Pulse Resp BP Pulse Ox 98.0 F 99 20 131/85 H 94 04/15/18 11:46 04/15/18 11:46 04/15/18 11:46 04/15/18 11:46 04/15/18 11:46 Intake & Output 04/14/18 04/15/18 04/16/18 06:59 06:59 06:59 Intake Total 736 263 Output Total 3100 Balance 736 -2837 Weight 62.4 kg 59.2 kg General appearance: PRESENT: cooperative, disheveled, hard of hearing Head exam: PRESENT: atraumatic, normocephalic Eye exam: PRESENT: conjunctiva pale, EOMI. ABSENT: nystagmus, periorbital swelling, scleral icterus Mouth exam: PRESENT: dry mucosa, neck supple, tongue midline Neck exam: ABSENT: carotid bruit, JVD, lymphadenopathy, thyromegaly, tracheal deviation, tracheostomy Respiratory exam: PRESENT: decreased breath sounds, prolonged expiratory phas, rales, rhonchi, unlabored. ABSENT: retraction, stridor, tachypnea Cardiovascular exam: PRESENT: RRR, +S1, +S2 Pulses: PRESENT: normal radial pulses GI/Abdominal exam: PRESENT: normal bowel sounds, soft Extremities exam: ABSENT: calf tenderness, clubbing, joint swelling Musculoskeletal exam: ABSENT: deformity, dislocation Neurological exam: PRESENT: alert, awake Psychiatric exam: PRESENT: normal mood Skin exam: PRESENT: dry, warm Results Laboratory Results: 04/12/18 04:14 04/12/18 09:32 Impressions: Hand X-Ray 04/14/18 00:00 IMPRESSION: Severe osteopenia. No obvious fracture. Wrist X-Ray 04/14/18 00:00 IMPRESSION: Severe osteopenia. No acute findings. Chest X-Ray 04/15/18 00:00 IMPRESSION: No recurrent right pleural effusion. Minimal haziness left hemidiaphragm. See above discussion. Assessment & Plan - Diagnosis (1) End stage renal failure on dialysis Is this a current diagnosis for this admission?: Yes Plan: follow I/O and weights (2) Pleural effusion, right Is this a current diagnosis for this admission?: Yes Plan: feeling better after fluid drained (3) Atrial fibrillation Qualifiers: Atrial fibrillation type: unspecified Qualified Code(s): I48.91 - Unspecified atrial fibrillation Is this a current diagnosis for this admission?: Yes Plan: tachycardia but rythm sounded regular
--- NOTE | 2018-04-15 13:02 | PDOC PROGRESS REPORT ---
Subjective Progress Note for:: 04/14/18 Subjective:: better than yesterday Reason For Visit: SOB ESRD, LG R PLEURAL EFF Physical Exam Vital Signs: Temp Pulse Resp BP Pulse Ox 97.6 F 84 18 138/65 H 94 04/14/18 07:20 04/14/18 07:20 04/14/18 07:20 04/14/18 07:20 04/14/18 07:20 Intake & Output 04/13/18 04/14/18 04/15/18 06:59 06:59 06:59 Intake Total 1285 736 Balance 1285 736 Weight 62.7 kg 62.4 kg General appearance: PRESENT: no acute distress, cooperative, disheveled Head exam: PRESENT: atraumatic, normocephalic Eye exam: PRESENT: conjunctiva pale, EOMI. ABSENT: nystagmus, scleral icterus Mouth exam: PRESENT: moist, neck supple, tongue midline Neck exam: ABSENT: carotid bruit, JVD, lymphadenopathy, thyromegaly, tracheal deviation, tracheostomy Respiratory exam: PRESENT: decreased breath sounds, prolonged expiratory phas, rales, rhonchi, unlabored. ABSENT: retraction, stridor, tachypnea Cardiovascular exam: PRESENT: RRR, +S1, +S2 Pulses: PRESENT: normal radial pulses GI/Abdominal exam: PRESENT: normal bowel sounds, soft Extremities exam: ABSENT: calf tenderness, clubbing, joint swelling Musculoskeletal exam: ABSENT: deformity, dislocation Neurological exam: PRESENT: alert, awake Psychiatric exam: PRESENT: flat affect Skin exam: PRESENT: dry, warm Results Laboratory Results: 04/12/18 04:14 04/12/18 09:32 04/12/18 04/12/18 19:15 19:15 Fluid Glucose 192 Fluid LDH 66 Impressions: Chest X-Ray 04/12/18 00:00 IMPRESSION: Status post pleurodesis demonstrating decreased volume of a right- sided pleural effusion. No pneumothorax. Assessment & Plan - Diagnosis (1) End stage renal failure on dialysis Is this a current diagnosis for this admission?: Yes Plan: follow I/O and weights (2) Pleural effusion, right Is this a current diagnosis for this admission?: Yes Plan: improved (3) Atrial fibrillation Qualifiers: Atrial fibrillation type: unspecified Qualified Code(s): I48.91 - Unspecified atrial fibrillation Is this a current diagnosis for this admission?: Yes Plan: tachycardia but rythm sounded regular
[2018-04-15 16:13] VITALS: BP 134/52
[2018-04-15] MEDS: ROPINIROLE HCL 1 MG TABLET PO SCH (17:56)
== END 2018-04-15 19:30 | DRG 186 ==
LOC: ER 21:00 → EH 23:50 → 3N 04-12 02:10
PROVIDERS: ADMIT Internal Medicine; ATTEND Internal Medicine
PROC: 0W993ZZ Drainage of Right Pleural Cavity, Percutaneous Approach (ICD-10-PCS; principal; 2018-04-12)
PROC: 3E0L3GC Introduction of Other Therapeutic Substance into Pleural Cavity, Percutaneous Approach (ICD-10-PCS; 2018-04-12)
DX: J90 Pleural effusion, not elsewhere classified (principal); N18.6 End stage renal disease; I12.0 Hypertensive chronic kidney disease with stage 5 chronic kidney disease or end stage renal disease; E11.22 Type 2 diabetes mellitus with diabetic chronic kidney disease; Z99.2 Dependence on renal dialysis; Z66 Do not resuscitate; J44.9 Chronic obstructive pulmonary disease, unspecified; I48.91 Unspecified atrial fibrillation; I35.0 Nonrheumatic aortic (valve) stenosis; I25.10 Atherosclerotic heart disease of native coronary artery without angina pectoris; E78.5 Hyperlipidemia, unspecified; K21.9 Gastro-esophageal reflux disease without esophagitis; F41.9 Anxiety disorder, unspecified; F32.9 Major depressive disorder, single episode, unspecified; Z79.01 Long term (current) use of anticoagulants; Z79.4 Long term (current) use of insulin; Z79.899 Other long term (current) drug therapy; Z86.718 Personal history of other venous thrombosis and embolism; Z86.711 Personal history of pulmonary embolism; I25.2 Old myocardial infarction; F43.10 Post-traumatic stress disorder, unspecified; Z90.710 Acquired absence of both cervix and uterus; Z95.5 Presence of coronary angioplasty implant and graft
CPT/HCPCS: 36415; 36430; 71045; 71250; 80048; 80053; 82550; 82553; 82945; 82947; 82962; 83615; 83880; 84155; 84484; 85025; 85610; 85730; 86850; 86900; 86901; 87015; 87070; 87075; 87101; 87116; 87205; 87206; 88305; 89050; 93005; 93010; 93306; 96365; 99285; J1644; J1815; J1940; J2543; J2550; J3370; J3490; J7620; P9017

== ENCOUNTER 2018-04-23 16:06 | Inpatient (IN) | payer MEDICARE, MEDICAID ==
--- NOTE | 2018-04-23 19:05 | RADIOLOGY REPORT (SQ) ---
EXAM DESCRIPTION: KUB/ABDOMEN (SINGLE VIEW) COMPLETED DATE/TIME: 04/23/2018 6:33 pm REASON FOR STUDY: sob constipation COMPARISON: 09/20/2015 NUMBER OF VIEWS: One view. TECHNIQUE: Supine radiographic image of the abdomen acquired. LIMITATIONS: None. FINDINGS: BOWEL GAS PATTERN: Normal bowel gas pattern. No dilated loops. CONSTIPATION: marked CALCIFICATIONS: No suspicious calcifications. SOFT TISSUES: No gross mass or suggestion of organomegaly. HARDWARE: Right pelvic nerve stimulator. IVC filter. BONES: No acute fracture. No worrisome bone lesions. OTHER: Right pleural effusion -basilar scarring. IMPRESSION: Right pleural effusion -basilar scarring.NO RADIOGRAPHIC EVIDENCE FOR ACUTE ABDOMINAL DI SEASE. Marked constipation. TECHNICAL DOCUMENTATION: JOB ID: [id number] 2010 [employer]- All Rights Reserved Reading location - IP/workstation name: [email or web address]
--- NOTE | 2018-04-23 19:06 | RADIOLOGY REPORT (SQ) ---
EXAM DESCRIPTION: CHEST 2 VIEWS COMPLETED DATE/TIME: 04/23/2018 6:33 pm REASON FOR STUDY: sob constipation COMPARISON: 05/25/2017 EXAM PARAMETERS: NUMBER OF VIEWS: two views TECHNIQUE: Digital Frontal and Lateral radiographic views of the chest acquired. RADIATION DOSE: NA LIMITATIONS: none FINDINGS: LUNGS AND PLEURA: Moderate right pleural effusion and basilar consolidation. Left lung ap pears clear. No pneumothorax. MEDIASTINUM AND HILAR STRUCTURES: Similar contour in visualized portions. HEART AND VASCULAR STRUCTURES: Stable. BONES: No acute findings. HARDWARE: None in the chest. OTHER: No other significant finding. IMPRESSION: Moderate right pleural effusion and basilar consolidation. TECHNICAL DOCUMENTATION: JOB ID: [id number] [id number] 2010 [employer]- All Rights Reserved Reading location - IP/workstation name: [email or web address]
[2018-04-23 20:29] LABS: ABSOLUTE EOSINOPHILS # (AUTO) 0.1 10^3/uL (0.0-0.6); ABSOLUTE MONOCYTES (AUTO) 0.4 10^3/uL (0.1-1.4); ABSOLUTE NEUT (AUTO) 3.3 10^3/uL (1.7-8.2); BASOPHILS % (AUTO) 0.9 % (0-2); EOSINOPHILS % (AUTO) 2.3 % (0-6); HEMATOCRIT 32.7 % (36.0-47.0); LYMPHOCYTES % (AUTO) 20.5 % (13-45); MEAN CORPUSCULAR HGB CONC 33.6 g/dL (32.0-36.0); MEAN CORPUSCULAR VOLUME 86 fl (80-97); MONOCYTES % (AUTO) 9.1 % (3-13); PLATELET COUNT 198 10^3/uL (150-450); RED BLOOD COUNT 3.79 10^6/uL (3.72-5.28); RED CELL DISTRIBUTION WIDTH 18.4 % (11.5-14.0); SEGMENTED NEUTROPHILS % (AUTO) 67.2 % (42-78); TOTAL CELLS COUNTED % (AUTO) 100 %; WHITE BLOOD COUNT 4.9 10^3/uL (4.0-10.5)
[2018-04-23 20:30] LABS: INTERNATIONAL RATION (INR) 2.21; PROTHROMBIN TIME 25.6 SEC (11.4-15.4)
[2018-04-23 20:31] LABS: PARTIAL THROMBOPLASTIN TIME 38.1 SEC (23.5-35.8)
[2018-04-23 20:47] LABS: ANION GAP 12 (5-19); BLOOD UREA NITROGEN 20 mg/dL (7-20); CALCIUM 9.4 mg/dL (8.4-10.2); CARBON DIOXIDE 30 mmol/L (22-30); CHLORIDE 98 mmol/L (98-107); GLUCOSE 82 mg/dL (75-110); POTASSIUM 3.6 mmol/L (3.6-5.0)
[2018-04-23] MEDS ORDERED: GLUCAGON,HUMAN RECOMB 1 MG INJ IM PRN (21:22)
[2018-04-23] MEDS ORDERED: DEXTROSE 40% GEL 15 GM TUBE PO PRN ×2 (21:22)
[2018-04-23] MEDS ORDERED: DEXTROSE 50%-WATER 25 GM/50 ML DISP.SYRIN IV PRN ×2 (21:22)
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
[2018-04-23] MEDS ORDERED: LACTULOSE SYRUP 20 GM/30 ML UDCUP PO ONE (22:30)
[2018-04-24 05:45] LABS: ABSOLUTE BASOPHILS # (AUTO) 0.1 10^3/uL (0.0-0.2); ABSOLUTE EOSINOPHILS # (AUTO) 0.1 10^3/uL (0.0-0.6); ABSOLUTE LYMPHOCYTES (AUTO) 1.1 10^3/uL (0.5-4.7); ABSOLUTE MONOCYTES (AUTO) 0.5 10^3/uL (0.1-1.4); ABSOLUTE NEUT (AUTO) 3.5 10^3/uL (1.7-8.2); BASOPHILS % (AUTO) 1.1 % (0-2); EOSINOPHILS % (AUTO) 2.4 % (0-6); HEMATOCRIT 31.3 % (36.0-47.0); HEMOGLOBIN 10.6 g/dL (12.0-15.5); LYMPHOCYTES % (AUTO) 20.8 % (13-45); MEAN CORPUSCULAR HEMOGLOBIN 29.4 pg (27.0-33.4); MEAN CORPUSCULAR HGB CONC 33.9 g/dL (32.0-36.0); MEAN CORPUSCULAR VOLUME 87 fl (80-97); MONOCYTES % (AUTO) 9.9 % (3-13); PLATELET COUNT 206 10^3/uL (150-450); RED BLOOD COUNT 3.61 10^6/uL (3.72-5.28); RED CELL DISTRIBUTION WIDTH 18.4 % (11.5-14.0); SEGMENTED NEUTROPHILS % (AUTO) 65.8 % (42-78); TOTAL CELLS COUNTED % (AUTO) 100 %; WHITE BLOOD COUNT 5.3 10^3/uL (4.0-10.5)
[2018-04-24 05:47] LABS: PROTHROMBIN TIME 25.5 SEC (11.4-15.4)
[2018-04-24] MEDS: LACTULOSE SYRUP 20 GM/30 ML UDCUP PO SCH ×3 (05:53→23:03)
[2018-04-24 06:07] LABS: ANION GAP 13 (5-19); BLOOD UREA NITROGEN 24 mg/dL (7-20); CALCIUM 9.6 mg/dL (8.4-10.2); CARBON DIOXIDE 28 mmol/L (22-30); CHLORIDE 100 mmol/L (98-107); GLUCOSE 131 mg/dL (75-110); PHOSPHORUS 4.8 mg/dL (2.5-4.5); POTASSIUM 4.1 mmol/L (3.6-5.0); SODIUM 141.2 mmol/L (137-145)
[2018-04-24] MEDS ORDERED: POLYVINYL ALCOHOL 1.4% OPH SOLN 15 ML OP PRN (06:28)
[2018-04-24] MEDS ORDERED: NITROGLYCERIN 0.4 MG/TAB 25 TAB/BOTTLE SL PRN (06:28)
[2018-04-24] MEDS ORDERED: ALBUTEROL SULFATE 0.083% NEB 2.5 MG/3 ML AMPUL NEB PRN (06:28)
[2018-04-24] MEDS ORDERED: CLONIDINE HCL 0.1 MG TABLET PO ONE (06:45)
[2018-04-24] MEDS: AMLODIPINE BESYLATE 5 MG TABLET PO SCH ×2 (09:58→23:19)
[2018-04-24] MEDS: CALCITRIOL 0.25 MCG CAPSULE PO SCH (10:00)
[2018-04-24] MEDS ORDERED: DOCUSATE SODIUM 100 MG CAPSULE PO SCH (10:00)
[2018-04-24] MEDS: DULOXETINE HCL 30 MG CAPSULE.DR PO SCH (10:01)
[2018-04-24] MEDS: CINACALCET HCL 30 MG TABLET PO SCH (10:01)
[2018-04-24] MEDS: INSULIN GLARGINE,HUM.REC.ANLOG 300 UNIT/3 ML INSULN.PEN SUBCUT SCH (10:01)
[2018-04-24] MEDS: LORATADINE 10 MG TABLET PO SCH (10:01)
[2018-04-24 10:25] LABS: ALBUMIN 3.4 g/dL (3.5-5.0); CALCIUM 9.2 mg/dL (8.4-10.2)
[2018-04-24] MEDS ORDERED: PHYTONADIONE 5 MG TABLET PO ONE (10:45)
[2018-04-24] MEDS: INSULIN LISPRO 100 UNIT/ML 3 ML VIAL SUBCUT PRN (11:18)
[2018-04-24] MEDS: CLONIDINE HCL 0.1 MG TABLET PO SCH ×2 (14:37→23:20)
--- NOTE | 2018-04-24 17:39 | PDOC PROGRESS REPORT ---
Subjective Progress Note for:: 04/24/18 Subjective:: The patient is without new complaints. Reason For Visit: DYSPNEA Physical Exam Vital Signs: Temp Pulse Resp BP Pulse Ox 98.1 F 91 16 151/71 H 95 04/24/18 16:05 04/24/18 16:38 04/24/18 16:38 04/24/18 16:05 04/24/18 16:38 Intake & Output 04/23/18 04/24/18 04/25/18 06:59 06:59 06:59 Intake Total 5 Balance 5 Weight 56.6 kg General appearance: PRESENT: no acute distress, well-developed, well-nourished Respiratory exam: PRESENT: other - No increased work of breathing. Diminished breath sounds on right and dullness to percussion on the right. No rales, rhonchi, or wheezes are ausculated. Cardiovascular exam: PRESENT: RRR, other - No lateral PMI. No thrills.. ABSENT : gallop, rubs, systolic murmur Pulses: PRESENT: other - Diminished distal pulses. GI/Abdominal exam: PRESENT: normal bowel sounds, soft. ABSENT: ascites, distended, hernia, organolmegaly Musculoskeletal exam: PRESENT: full ROM, normal inspection Neurological exam: PRESENT: alert, awake, oriented to person, oriented to place , oriented to time, oriented to situation, CN II-XII grossly intact. ABSENT: motor sensory deficit Psychiatric exam: PRESENT: appropriate affect, normal mood Skin exam: PRESENT: dry, intact, warm Results Laboratory Results: 04/24/18 05:17 04/24/18 05:17 04/24/18 04/24/18 04/24/18 05:17 05:17 09:47 WBC 5.3 RBC 3.61 L Hgb 10.6 L Hct 31.3 L MCV 87 MCH 29.4 MCHC 33.9 RDW 18.4 H Plt Count 206 Seg Neutrophils % 65.8 Lymphocytes % 20.8 Monocytes % 9.9 Eosinophils % 2.4 Basophils % 1.1 Absolute Neutrophils 3.5 Absolute Lymphocytes 1.1 Absolute Monocytes 0.5 Absolute Eosinophils 0.1 Absolute Basophils 0.1 Sodium 141.2 Potassium 4.1 Chloride 100 Carbon Dioxide 28 Anion Gap 13 BUN 24 H Creatinine 2.64 H Est GFR ( Amer) 21 L Est GFR (Non-Af Amer) 17 L Glucose 131 H Calcium 9.6 9.2 Phosphorus 4.8 H Magnesium 2.1 Albumin 3.4 L Impressions: Chest X-Ray 04/23/18 18:10 IMPRESSION: Moderate right pleural effusion and basilar consolidation. KUB X-Ray 04/23/18 18:10 IMPRESSION: Right pleural effusion -basilar scarring.NO RADIOGRAPHIC EVIDENCE FOR ACUTE ABDOMINAL DISEASE. Marked constipation. Assessment & Plan - Diagnosis (1) Constipation Qualifiers: Constipation type: other constipation type Qualified Code(s): K59.09 - Other constipation Is this a current diagnosis for this admission?: Yes Plan: Docusate sodium bid. (2) Coronary artery disease Qualifiers: Coronary Disease-Associated Artery/Lesion type: [place] artery [place] vs. transplanted heart: [place] heart Associated angina: without angina Qualified Code(s): I25.10 - Atherosclerotic heart disease of [place] coronary artery without angina pectoris Is this a current diagnosis for this admission?: Yes Plan: Continue home medications. (4) ESRD (end stage renal disease) Is this a current diagnosis for this admission?: Yes Plan: Ankur consulted for nephrology. (5) Pleural effusion, right Is this a current diagnosis for this admission?: Yes Plan: I have discussed the patient with radiology. Her INR is too high to have thoracentesis this morning. I will give her 5mg Vitamin K and monitor INR. Likely to be done tomorrow or when INR is less than 1.5. Will bridge with heparin gtt if it will be tomorrow am. (6) Weak Is this a current diagnosis for this admission?: Yes Plan: PT/OT eval and treat. (7) Anemia in chronic kidney disease (CKD) Qualifiers: Chronic kidney disease stage: on chronic dialysis Qualified Code(s): N18.6 - End stage renal disease; D63.1 - Anemia in chronic kidney disease; D63.1 - Anemia in chronic kidney disease; Z99.2 - Dependence on renal dialysis; Z99.2 - Dependence on renal dialysis; Z99.2 - Dependence on renal dialysis; Z99.2 - Dependence on renal dialysis Is this a current diagnosis for this admission?: Yes Plan: Monitor. Stable at 10.6 currently. (8) Aortic stenosis, severe Is this a current diagnosis for this admission?: Yes Plan: Monitor (9) History of DVT (deep vein thrombosis) Is this a current diagnosis for this admission?: Yes Plan: 6 months ago. Coumadin will have to held and INR reversed for the patient to undergo thoracentesis. Will place on heparin to bridge. - Time Time Spent with patient: 35 or more minutes Medications reviewed and adjusted accordingly: Yes
[2018-04-24 18:06] LABS: ABSOLUTE BASOPHILS # (AUTO) 0.1 10^3/uL (0.0-0.2); ABSOLUTE EOSINOPHILS # (AUTO) 0.2 10^3/uL (0.0-0.6); ABSOLUTE LYMPHOCYTES (AUTO) 1.4 10^3/uL (0.5-4.7); ABSOLUTE MONOCYTES (AUTO) 0.8 10^3/uL (0.1-1.4); ABSOLUTE NEUT (AUTO) 5.3 10^3/uL (1.7-8.2); BASOPHILS % (AUTO) 1.4 % (0-2); EOSINOPHILS % (AUTO) 2.3 % (0-6); HEMATOCRIT 31.4 % (36.0-47.0); HEMOGLOBIN 10.6 g/dL (12.0-15.5); MEAN CORPUSCULAR HEMOGLOBIN 29.3 pg (27.0-33.4); MEAN CORPUSCULAR HGB CONC 33.6 g/dL (32.0-36.0); MEAN CORPUSCULAR VOLUME 87 fl (80-97); MONOCYTES % (AUTO) 10.4 % (3-13); PLATELET COUNT 226 10^3/uL (150-450); RED BLOOD COUNT 3.61 10^6/uL (3.72-5.28); RED CELL DISTRIBUTION WIDTH 18.4 % (11.5-14.0); SEGMENTED NEUTROPHILS % (AUTO) 67.9 % (42-78); TOTAL CELLS COUNTED % (AUTO) 100 %; WHITE BLOOD COUNT 7.8 10^3/uL (4.0-10.5)
[2018-04-24 18:32] LABS: INTERNATIONAL RATION (INR) 1.95; PROTHROMBIN TIME 23.2 SEC (11.4-15.4)
[2018-04-24 18:33] LABS: PARTIAL THROMBOPLASTIN TIME 36.6 SEC (23.5-35.8)
[2018-04-24] MEDS: DOCUSATE SODIUM 100 MG CAPSULE PO SCH (19:43)
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
[2018-04-24] MEDS: HEPARIN SOD (PORCINE) 1,000 UNIT/ML 10 ML VIAL IV PRN (20:42)
[2018-04-24] MEDS: HEPARIN SODIUM,PORCINE/D5W 25,000 UNIT/250 ML RTUINJ IV PRN (20:42)
[2018-04-24] MEDS: ACETAMINOPHEN 325 MG TABLET PO SCH (23:16)
[2018-04-24] MEDS: DONEPEZIL HCL 5 MG TABLET PO SCH (23:19)
[2018-04-25 03:12] LABS: HEMATOCRIT 30.6 % (36.0-47.0); HEMOGLOBIN 10.4 g/dL (12.0-15.5); MEAN CORPUSCULAR HEMOGLOBIN 29.5 pg (27.0-33.4); MEAN CORPUSCULAR HGB CONC 34.1 g/dL (32.0-36.0); MEAN CORPUSCULAR VOLUME 86 fl (80-97); PLATELET COUNT 213 10^3/uL (150-450); RED BLOOD COUNT 3.54 10^6/uL (3.72-5.28); RED CELL DISTRIBUTION WIDTH 18.6 % (11.5-14.0); WHITE BLOOD COUNT 7.1 10^3/uL (4.0-10.5)
[2018-04-25 03:34] LABS: ANION GAP 13 (5-19); BLOOD UREA NITROGEN 32 mg/dL (7-20); CALCIUM 9.2 mg/dL (8.4-10.2); CARBON DIOXIDE 27 mmol/L (22-30); CHLORIDE 100 mmol/L (98-107); GLUCOSE 110 mg/dL (75-110); POTASSIUM 4.1 mmol/L (3.6-5.0); SODIUM 139.9 mmol/L (137-145)
[2018-04-25 05:30] LABS: INTERNATIONAL RATION (INR) 1.67; PROTHROMBIN TIME 20.5 SEC (11.4-15.4)
[2018-04-25 06:01] LABS: PARTIAL THROMBOPLASTIN TIME 172.9 SEC (23.5-35.8)
[2018-04-25] MEDS: LACTULOSE SYRUP 20 GM/30 ML UDCUP PO SCH ×3 (06:19→22:34)
[2018-04-25] MEDS: CLONIDINE HCL 0.1 MG TABLET PO SCH ×3 (06:26→23:40)
[2018-04-25] MEDS ORDERED: PHYTONADIONE 5 MG TABLET PO ONE (13:00)
[2018-04-25] MEDS: DULOXETINE HCL 30 MG CAPSULE.DR PO SCH (13:16)
[2018-04-25] MEDS: DOCUSATE SODIUM 100 MG CAPSULE PO SCH ×2 (13:16→17:19)
[2018-04-25] MEDS: LORATADINE 10 MG TABLET PO SCH (13:16)
[2018-04-25] MEDS: AMLODIPINE BESYLATE 5 MG TABLET PO SCH ×2 (13:16→22:40)
[2018-04-25] MEDS: INSULIN GLARGINE,HUM.REC.ANLOG 300 UNIT/3 ML INSULN.PEN SUBCUT SCH (13:17)
[2018-04-25] MEDS: CINACALCET HCL 30 MG TABLET PO SCH (13:17)
[2018-04-25 14:03] LABS: INTERNATIONAL RATION (INR) 1.24; PROTHROMBIN TIME 16.2 SEC (11.4-15.4)
--- NOTE | 2018-04-25 15:47 | RADIOLOGY REPORT (SQ) ---
EXAM DESCRIPTION: CHEST SINGLE VIEW COMPLETED DATE/TIME: 04/25/2018 3:34 pm REASON FOR STUDY: S/P RT THORACENTESIS COMPARISON: Two-view chest 04/23/2018, AP chest 04/15/2018 Ultrasound-guided Thoracentesis minutes ago EXAM PARAMETERS: NUMBER OF VIEWS: One view. TECHNIQUE: Single frontal radiographic view of the chest acquired. RADIATION DOSE: NA LIMITATIONS: None. FINDINGS: LUNGS AND PLEURA: Post right-sided thoracentesis minutes ago, with removal of 1 L of clear yellow fluid from the right pleural space. There is persistent minimal residual fluid in the right lateral costophrenic sulcus and major fissure. Chronic partial collapse of the right middle and lowe r lobe. No right pneumothorax. Left hemithorax unremarkable. MEDIASTINUM AND HILAR STRUCTURES: No masses. Contour normal. HEART AND VASCULAR STRUCTURES: Stable cardiomegaly BONES: No acute findings. HARDWARE: None in the chest. OTHER: No other significant finding. IMPRESSION: Post right-sided thoracentesis with removal of 1 L of fluid from the right hemithorax. There is still with persistent minimal residual pleural fluid in the right major fissure and lateral costophrenic sulcus with chronic partial collapse of the right middle and lower lobe. No pneumothora x. TECHNICAL DOCUMENTATION: JOB ID: [id number] [employer]- All Rights Reserved Reading location - IP/workstation name: [email or web address]
--- NOTE | 2018-04-25 15:53 | RADIOLOGY REPORT (SQ) ---
EXAM DESCRIPTION: U/S THORACENTESIS WITH IMAGING COMPLETED DATE/TIME: 04/25/2018 3:41 pm REASON FOR STUDY: Right pleural effusion COMPARISON: Chest films 04/23/2018 CT chest 04/11/2018 LIMITATIONS: None. PROCEDURE: Procedure, risks, benefit, and alternative explained to patient who then gave written con sent. The posterior right chest wall was marked using ultrasound guidance. A time-out was called fo r correct marking verification. Chest prepped and draped using sterile technique. Local anesthesia a chieved using 6 ml of 1% lidocaine injection. A 6fr Safe-T- Centesis set was introduced into the rig ht pleural space. Fluid was aspirated. The catheter was removed and the entry site was covered with sterile bandage. No immediate complications noted. Fluid was sent for testing. Post procedure ches t x-ray dictated separately demonstrates no right-sided pneumothorax. Images acquired during the procedure were stored on PACS. FINDINGS: ENTRY SITE: Right posterior pleural space FLUID VOLUME: 1050 mL FLUID ANALYSIS: Clear yellow fluid sent for testing OTHER: No pneumothorax on post procedure chest x-ray dictated separately IMPRESSION: SUCCESSFUL THORACENTESIS USING ULTRASOUND GUIDANCE. COMMENT: Patient medication list reviewed: Yes- Quality ID# [id number]:Eligible professional attests to doc umenting in the medical record they obtained, updated, or reviewed the patient's current medications. TECHNICAL DOCUMENTATION: JOB ID: [id number] [employer]- All Rights Reserved Reading location - IP/workstation name: [email or web address]
[2018-04-25 16:46] LABS: FLUID SOURCE LUNG; FLUID TYPE PLEURAL
[2018-04-25 16:47] LABS: FLUID APPEARANCE CLEAR; FLUID COLOR LIGHT YELLOW; FLUID VISCOSITY LIQUID
--- NOTE | 2018-04-25 16:55 | PDOC PROGRESS REPORT ---
Subjective Progress Note for:: 04/25/18 Subjective:: I saw the patient during initiation of hemodialysis this morning at around 8:35 AM. She is still complaining of shortness of breath. She was on heparin drip during dialysis. She denies any other complaints otherwise. Reason For Visit: DYSPNEA Physical Exam Vital Signs: Temp Pulse Resp BP Pulse Ox 98.1 F 79 16 124/56 L 96 04/25/18 16:01 04/25/18 16:01 04/25/18 16:01 04/25/18 16:01 04/25/18 16:01 Intake & Output 04/24/18 04/25/18 04/26/18 06:59 06:59 06:59 Intake Total 5 556 384 Output Total 3500 Balance 5 556 -3116 Weight 56.6 kg 56 kg Vitals during dialysis: Blood pressure 134/62, heart rate of 89, oxygen saturation 99 200% with oxygen of 2 L via nasal cannula, blood flow rate of 350 mL/min, dialysate flow rate of 600 mL/min. Exam: General appearance: PRESENT: no acute distress, cooperative, well-developed, well-nourished Head exam: PRESENT: atraumatic, normocephalic Eye exam: PRESENT: conjunctiva slightly pale, PERRLA. ABSENT: scleral icterus Neck exam: ABSENT: JVD Respiratory exam: PRESENT: Diminished breath sounds on right mid to lower lung vaz. ABSENT: crackles, rales, rhonchi, unlabored, wheezes Cardiovascular exam: PRESENT: Irregularly irregular rate rhythm -+S1, +S2. Grade 2/6 systolic murmur GI/Abdominal exam: PRESENT: normal bowel sounds, soft. ABSENT: guarding, mass, tenderness Extremities exam: ABSENT: No edema Neurological exam: PRESENT: alert, awake, oriented to person, place and time. Skin exam: PRESENT: dry, warm, Results Laboratory Results: 04/25/18 02:53 04/25/18 02:53 04/24/18 04/25/18 04/25/18 17:58 02:53 02:53 WBC 7.8 7.1 RBC 3.61 L 3.54 L Hgb 10.6 L 10.4 L Hct 31.4 L 30.6 L MCV 87 86 MCH 29.3 29.5 MCHC 33.6 34.1 RDW 18.4 H 18.6 H Plt Count 226 213 Seg Neutrophils % 67.9 Lymphocytes % 18.0 Monocytes % 10.4 Eosinophils % 2.3 Basophils % 1.4 Absolute Neutrophils 5.3 Absolute Lymphocytes 1.4 Absolute Monocytes 0.8 Absolute Eosinophils 0.2 Absolute Basophils 0.1 Sodium 139.9 Potassium 4.1 Chloride 100 Carbon Dioxide 27 Anion Gap 13 BUN 32 H Creatinine 3.38 H Est GFR ( Amer) 16 L Est GFR (Non-Af Amer) 13 L Glucose 110 Calcium 9.2 Impressions: KUB X-Ray 04/23/18 18:10 IMPRESSION: Right pleural effusion -basilar scarring.NO RADIOGRAPHIC EVIDENCE FOR ACUTE ABDOMINAL DISEASE. Marked constipation. Chest X-Ray 04/25/18 00:00 IMPRESSION: Post right-sided thoracentesis with removal of 1 L of fluid from the right hemithorax. There is still with persistent minimal residual pleural fluid in the right major fissure and lateral costophrenic sulcus with chronic partial collapse of the right middle and lower lobe. No pneumothorax. Thoracentesis Ultrasound 04/25/18 00:00 IMPRESSION: SUCCESSFUL THORACENTESIS USING ULTRASOUND GUIDANCE. Assessment & Plan - Diagnosis (1) End stage renal failure on dialysis Is this a current diagnosis for this admission?: Yes Plan: We did dialysis today for 3 hours, using the patient's AV fistula, with 2 potassium bath, blood flow rate of 350 mL per minute, dialysate flow rate of 600 mL per minute, ultrafiltration 3.5 L, on systemic heparin and no Procrit. Patient tolerated the procedure well. Patient was monitored throughout dialysis treatment. (2) Pleural effusion, right Is this a current diagnosis for this admission?: Yes Plan: Patient scheduled for diagnostic and therapeutic right thoracentesis today. (3) Anemia in chronic kidney disease (CKD) Qualifiers: Chronic kidney disease stage: on chronic dialysis Qualified Code(s): N18.6 - End stage renal disease; D63.1 - Anemia in chronic kidney disease; D63.1 - Anemia in chronic kidney disease; Z99.2 - Dependence on renal dialysis; Z99.2 - Dependence on renal dialysis; Z99.2 - Dependence on renal dialysis; Z99.2 - Dependence on renal dialysis Is this a current diagnosis for this admission?: Yes (4) Hypertension Qualifiers: Hypertension type: essential hypertension Qualified Code(s): I10 - Essential (primary) hypertension Is this a current diagnosis for this admission?: Yes (5) Diabetes mellitus type II, controlled Qualifiers: Is this a current diagnosis for this admission?: Yes (6) History of DVT (deep vein thrombosis) Is this a current diagnosis for this admission?: Yes - Time Time with patient: 15-25 minutes
[2018-04-25 17:56] LABS: INTERNATIONAL RATION (INR) 1.28; PROTHROMBIN TIME 16.7 SEC (11.4-15.4)
--- NOTE | 2018-04-25 18:24 | PDOC PROGRESS REPORT ---
Subjective Progress Note for:: 04/25/18 Subjective:: The patient is seen in dialysis. No new complaints. Reason For Visit: DYSPNEA Physical Exam Vital Signs: Temp Pulse Resp BP Pulse Ox 98.1 F 79 16 124/56 L 96 04/25/18 16:01 04/25/18 16:01 04/25/18 16:01 04/25/18 16:01 04/25/18 16:01 Intake & Output 04/24/18 04/25/18 04/26/18 06:59 06:59 06:59 Intake Total 5 556 384 Output Total 3500 Balance 5 556 -3116 Weight 56.6 kg 56 kg General appearance: PRESENT: no acute distress Respiratory exam: PRESENT: other - No increased work of breathing. Diminished breath sounds on the right. Dullness to percussion also on the right.. ABSENT: rales, rhonchi, wheezes Cardiovascular exam: PRESENT: RRR, other - No lateral PMI. No thrills.. ABSENT : gallop, rubs, systolic murmur Pulses: PRESENT: other - Diminished distal pulses. GI/Abdominal exam: PRESENT: normal bowel sounds, soft. ABSENT: hernia, mass, organolmegaly, tenderness Extremities exam: ABSENT: pedal edema, tenderness, +1 edema Neurological exam: PRESENT: alert, awake, oriented to person, oriented to place , oriented to time, oriented to situation, CN II-XII grossly intact, motor sensory deficit Skin exam: PRESENT: dry, intact, warm Results Laboratory Results: 04/25/18 02:53 04/25/18 02:53 04/24/18 04/25/18 04/25/18 17:58 02:53 02:53 WBC 7.8 7.1 RBC 3.61 L 3.54 L Hgb 10.6 L 10.4 L Hct 31.4 L 30.6 L MCV 87 86 MCH 29.3 29.5 MCHC 33.6 34.1 RDW 18.4 H 18.6 H Plt Count 226 213 Seg Neutrophils % 67.9 Lymphocytes % 18.0 Monocytes % 10.4 Eosinophils % 2.3 Basophils % 1.4 Absolute Neutrophils 5.3 Absolute Lymphocytes 1.4 Absolute Monocytes 0.8 Absolute Eosinophils 0.2 Absolute Basophils 0.1 Sodium 139.9 Potassium 4.1 Chloride 100 Carbon Dioxide 27 Anion Gap 13 BUN 32 H Creatinine 3.38 H Est GFR ( Amer) 16 L Est GFR (Non-Af Amer) 13 L Glucose 110 Calcium 9.2 Fluid Type Fluid Source Fluid Color Fluid Appearance Fluid Viscosity Fluid WBC Fluid RBC 04/25/18 15:15 WBC RBC Hgb Hct MCV MCH MCHC RDW Plt Count Seg Neutrophils % Lymphocytes % Monocytes % Eosinophils % Basophils % Absolute Neutrophils Absolute Lymphocytes Absolute Monocytes Absolute Eosinophils Absolute Basophils Sodium Potassium Chloride Carbon Dioxide Anion Gap BUN Creatinine Est GFR ( Amer) Est GFR (Non-Af Amer) Glucose Calcium Fluid Type PLEURAL Fluid Source LUNG Fluid Color LIGHT YELLOW Fluid Appearance CLEAR Fluid Viscosity LIQUID Fluid WBC 21 Fluid RBC 212 Impressions: KUB X-Ray 04/23/18 18:10 IMPRESSION: Right pleural effusion -basilar scarring.NO RADIOGRAPHIC EVIDENCE FOR ACUTE ABDOMINAL DISEASE. Marked constipation. Thoracentesis Ultrasound 04/25/18 00:00 IMPRESSION: SUCCESSFUL THORACENTESIS USING ULTRASOUND GUIDANCE. Assessment & Plan - Diagnosis (1) Constipation Qualifiers: Constipation type: other constipation type Qualified Code(s): K59.09 - Other constipation Is this a current diagnosis for this admission?: Yes Plan: Docusate sodium bid. (2) Coronary artery disease Qualifiers: Coronary Disease-Associated Artery/Lesion type: [place] artery [place] vs. transplanted heart: [place] heart Associated angina: without angina Qualified Code(s): I25.10 - Atherosclerotic heart disease of [place] coronary artery without angina pectoris Is this a current diagnosis for this admission?: Yes Plan: Continue home medications. (3) DNR (do not resuscitate) Is this a current diagnosis for this admission?: Yes (4) ESRD (end stage renal disease) Is this a current diagnosis for this admission?: Yes Plan: Dialysis today. (5) Pleural effusion, right Is this a current diagnosis for this admission?: Yes Plan: INR still too high for thoracentesis this morning. Will repeat Vitamin K with the hope that this can be done later today. Heparin bridge due to history of DVT. (6) Weak Is this a current diagnosis for this admission?: Yes Plan: PT/OT eval and treat. (7) Anemia in chronic kidney disease (CKD) Qualifiers: Chronic kidney disease stage: on chronic dialysis Qualified Code(s): N18.6 - End stage renal disease; D63.1 - Anemia in chronic kidney disease; D63.1 - Anemia in chronic kidney disease; Z99.2 - Dependence on renal dialysis; Z99.2 - Dependence on renal dialysis; Z99.2 - Dependence on renal dialysis; Z99.2 - Dependence on renal dialysis Is this a current diagnosis for this admission?: Yes Plan: Monitor. Stable at 10.6 currently. (8) Aortic stenosis, severe Is this a current diagnosis for this admission?: Yes Plan: Monitor (9) History of DVT (deep vein thrombosis) Is this a current diagnosis for this admission?: Yes Plan: 6 months ago. Coumadin will have to held and INR reversed for the patient to undergo thoracentesis. Will place on heparin to bridge. - Time Time Spent with patient: 25-34 minutes Medications reviewed and adjusted accordingly: Yes
--- NOTE | 2018-04-25 18:29 | RADIOLOGY REPORT (SQ) ---
EXAM DESCRIPTION: CHEST SINGLE VIEW COMPLETED DATE/TIME: 04/25/2018 5:45 pm REASON FOR STUDY: 2 HOURS S/P RT THORACENTESIS COMPARISON: 04/25/2018, 04/23/2018 EXAM PARAMETERS: NUMBER OF VIEWS: One view. TECHNIQUE: Single frontal radiographic view of the chest acquired. RADIATION DOSE: NA LIMITATIONS: None. FINDINGS: LUNGS AND PLEURA: 2 hours post thoracentesis. There is small residual right pleural effus ion similar compared to film at 1530 hours. Partial collapse right lower lobe, stable. No right pne umothorax. No left pleural effusion or focal left infiltrates. MEDIASTINUM AND HILAR STRUCTURES: No masses. Contour normal. HEART AND VASCULAR STRUCTURES: Stable cardiomegaly BONES: No acute findings. HARDWARE: None in the chest. OTHER: No other significant finding. IMPRESSION: No pneumothorax 2 hours post right thoracentesis. Persistent partial collapse right low er lobe with small residual effusion in the major fissure. TECHNICAL DOCUMENTATION: JOB ID: [id number] [employer]- All Rights Reserved Reading location - IP/workstation name: [email or web address]
[2018-04-25] MEDS: INSULIN LISPRO 100 UNIT/ML 3 ML VIAL SUBCUT PRN (18:42)
[2018-04-25] MEDS: HEPARIN SOD (PORCINE) 1,000 UNIT/ML 10 ML VIAL IV PRN (19:03)
[2018-04-25] MEDS ORDERED: HEPARIN SOD (PORCINE) 1,000 UNIT/ML 10 ML VIAL IV PRN (19:16)
[2018-04-25] MEDS ORDERED: WARFARIN SODIUM 5 MG TABLET PO SCH (22:00)
[2018-04-25] MEDS: ACETAMINOPHEN 325 MG TABLET PO SCH (23:39)
[2018-04-25] MEDS: DONEPEZIL HCL 5 MG TABLET PO SCH (23:40)
[2018-04-26] MEDS: LACTULOSE SYRUP 20 GM/30 ML UDCUP PO SCH ×3 (06:06→21:35)
[2018-04-26] MEDS: CLONIDINE HCL 0.1 MG TABLET PO SCH ×3 (06:06→21:35)
[2018-04-26] MEDS: HEPARIN SODIUM,PORCINE/D5W 25,000 UNIT/250 ML RTUINJ IV PRN (06:12)
[2018-04-26 09:15] LABS: ABSOLUTE BASOPHILS # (AUTO) 0.1 10^3/uL (0.0-0.2); ABSOLUTE EOSINOPHILS # (AUTO) 0.2 10^3/uL (0.0-0.6); ABSOLUTE LYMPHOCYTES (AUTO) 1.2 10^3/uL (0.5-4.7); ABSOLUTE MONOCYTES (AUTO) 0.5 10^3/uL (0.1-1.4); ABSOLUTE NEUT (AUTO) 5.8 10^3/uL (1.7-8.2); BASOPHILS % (AUTO) 0.7 % (0-2); EOSINOPHILS % (AUTO) 2.5 % (0-6); HEMATOCRIT 34.4 % (36.0-47.0); HEMOGLOBIN 11.5 g/dL (12.0-15.5); LYMPHOCYTES % (AUTO) 15.5 % (13-45); MEAN CORPUSCULAR HEMOGLOBIN 29.2 pg (27.0-33.4); MEAN CORPUSCULAR HGB CONC 33.3 g/dL (32.0-36.0); MEAN CORPUSCULAR VOLUME 88 fl (80-97); MONOCYTES % (AUTO) 6.3 % (3-13); PLATELET COUNT 242 10^3/uL (150-450); RED BLOOD COUNT 3.93 10^6/uL (3.72-5.28); RED CELL DISTRIBUTION WIDTH 18.7 % (11.5-14.0); TOTAL CELLS COUNTED % (AUTO) 100 %; WHITE BLOOD COUNT 7.8 10^3/uL (4.0-10.5)
[2018-04-26 09:21] LABS: INTERNATIONAL RATION (INR) 1.24; PROTHROMBIN TIME 16.2 SEC (11.4-15.4)
[2018-04-26] MEDS: LORATADINE 10 MG TABLET PO SCH (10:09)
[2018-04-26] MEDS: DULOXETINE HCL 30 MG CAPSULE.DR PO SCH (10:09)
[2018-04-26] MEDS: AMLODIPINE BESYLATE 5 MG TABLET PO SCH ×2 (10:09→21:35)
[2018-04-26] MEDS: INSULIN GLARGINE,HUM.REC.ANLOG 300 UNIT/3 ML INSULN.PEN SUBCUT SCH (10:10)
[2018-04-26] MEDS: CALCITRIOL 0.25 MCG CAPSULE PO SCH (10:12)
[2018-04-26] MEDS: DOCUSATE SODIUM 100 MG CAPSULE PO SCH ×2 (10:14→19:05)
[2018-04-26] MEDS: CINACALCET HCL 30 MG TABLET PO SCH (11:23)
[2018-04-26] MEDS ORDERED: ONDANSETRON HCL INJ/PF 4 MG/2 ML SDV IV PRN (13:20)
[2018-04-26 15:05] LABS: INTERNATIONAL RATION (INR) 1.14; PROTHROMBIN TIME 15.2 SEC (11.4-15.4)
[2018-04-26] MEDS: ONDANSETRON 4 MG TAB.RAPDIS SL PRN (15:54)
[2018-04-26] MEDS: ACETAMINOPHEN 325 MG TABLET PO SCH (21:35)
[2018-04-26] MEDS: DONEPEZIL HCL 5 MG TABLET PO SCH (21:35)
[2018-04-26] MEDS: WARFARIN SODIUM 7.5 MG TABLET PO SCH (21:35)
[2018-04-26] MEDS: INSULIN LISPRO 100 UNIT/ML 3 ML VIAL SUBCUT PRN (21:37)
[2018-04-27] MEDS: LACTULOSE SYRUP 20 GM/30 ML UDCUP PO SCH ×3 (06:52→22:32)
[2018-04-27] MEDS: CLONIDINE HCL 0.1 MG TABLET PO SCH ×3 (06:59→22:32)
[2018-04-27 07:09] LABS: HEMATOCRIT 31.4 % (36.0-47.0); HEMOGLOBIN 10.7 g/dL (12.0-15.5); MEAN CORPUSCULAR HEMOGLOBIN 29.6 pg (27.0-33.4); MEAN CORPUSCULAR HGB CONC 34.2 g/dL (32.0-36.0); MEAN CORPUSCULAR VOLUME 87 fl (80-97); PLATELET COUNT 233 10^3/uL (150-450); RED BLOOD COUNT 3.61 10^6/uL (3.72-5.28); RED CELL DISTRIBUTION WIDTH 18.4 % (11.5-14.0); WHITE BLOOD COUNT 6.6 10^3/uL (4.0-10.5)
[2018-04-27 07:17] LABS: PROTHROMBIN TIME 15.8 SEC (11.4-15.4)
[2018-04-27 07:18] LABS: PARTIAL THROMBOPLASTIN TIME 66.6 SEC (23.5-35.8)
[2018-04-27] MEDS: DULOXETINE HCL 30 MG CAPSULE.DR PO SCH (11:40)
[2018-04-27] MEDS: AMLODIPINE BESYLATE 5 MG TABLET PO SCH ×2 (11:40→22:30)
[2018-04-27] MEDS: CINACALCET HCL 30 MG TABLET PO SCH (11:41)
[2018-04-27] MEDS: DOCUSATE SODIUM 100 MG CAPSULE PO SCH ×2 (11:44→19:05)
[2018-04-27] MEDS: LORATADINE 10 MG TABLET PO SCH (11:46)
[2018-04-27] MEDS: CALCITRIOL 0.25 MCG CAPSULE PO SCH (11:47)
[2018-04-27] MEDS: HEPARIN SODIUM,PORCINE/D5W 25,000 UNIT/250 ML RTUINJ IV PRN (13:44)
[2018-04-27] MEDS: INSULIN GLARGINE,HUM.REC.ANLOG 300 UNIT/3 ML INSULN.PEN SUBCUT SCH (13:47)
--- NOTE | 2018-04-27 17:43 | PDOC PROGRESS REPORT ---
Subjective Progress Note for:: 04/26/18 Subjective:: Patient is seen resting in bed. She is awake, alert and oriented 3. She denies any chest pain, shortness of breath or dyspnea. States her breathing is much improved from yesterday after her thoracentesis. She had a previous thoracentesis less than 2 weeks ago on the same side. Workup showed no cause of the pleural effusion. She is presently on IV heparin while her Coumadin is restarted. She denies any nausea, vomiting or abdominal pain. She denies any arthralgias or myalgias. Remaining review of systems are negative. Reason For Visit: DYSPNEA Physical Exam Vital Signs: Temp Pulse Resp BP Pulse Ox 97.3 F 70 16 112/45 L 100 04/27/18 15:49 04/27/18 15:49 04/27/18 15:49 04/27/18 15:49 04/27/18 15:49 Intake & Output 04/26/18 04/27/18 04/28/18 06:59 06:59 06:59 Intake Total 969 741 Output Total 3500 Balance -2531 741 Weight 49.7 kg 50 kg General appearance: PRESENT: no acute distress, thin, well-developed, well- nourished Head exam: PRESENT: atraumatic, normocephalic Eye exam: PRESENT: conjunctiva pink, EOMI, PERRLA. ABSENT: scleral icterus Ear exam: PRESENT: normal external ear exam Mouth exam: PRESENT: moist, tongue midline Neck exam: ABSENT: carotid bruit, JVD, lymphadenopathy, thyromegaly Respiratory exam: PRESENT: decreased breath sounds, symmetrical, unlabored - Right base. ABSENT: rales, rhonchi, wheezes Cardiovascular exam: PRESENT: RRR. ABSENT: diastolic murmur, rubs, systolic murmur Pulses: PRESENT: normal dorsalis pedis pul Vascular exam: PRESENT: normal capillary refill GI/Abdominal exam: PRESENT: normal bowel sounds, soft. ABSENT: distended, guarding, mass, organolmegaly, rebound, tenderness Rectal exam: PRESENT: deferred Extremities exam: PRESENT: full ROM. ABSENT: calf tenderness, clubbing, pedal edema Neurological exam: PRESENT: alert, awake, oriented to person, oriented to place , oriented to time, oriented to situation, CN II-XII grossly intact. ABSENT: motor sensory deficit Psychiatric exam: PRESENT: appropriate affect, normal mood. ABSENT: homicidal ideation, suicidal ideation Skin exam: PRESENT: dry, intact, warm. ABSENT: cyanosis, rash Results Laboratory Results: 04/27/18 06:20 04/25/18 02:53 04/27/18 06:20 WBC 6.6 RBC 3.61 L Hgb 10.7 L Hct 31.4 L MCV 87 MCH 29.6 MCHC 34.2 RDW 18.4 H Plt Count 233 Impressions: KUB X-Ray 04/23/18 18:10 IMPRESSION: Right pleural effusion -basilar scarring.NO RADIOGRAPHIC EVIDENCE FOR ACUTE ABDOMINAL DISEASE. Marked constipation. Chest X-Ray 04/25/18 00:00 IMPRESSION: No pneumothorax 2 hours post right thoracentesis. Persistent partial collapse right lower lobe with small residual effusion in the major fissure. Thoracentesis Ultrasound 04/25/18 00:00 IMPRESSION: SUCCESSFUL THORACENTESIS USING ULTRASOUND GUIDANCE. Assessment & Plan - Diagnosis (1) Pleural effusion, right Is this a current diagnosis for this admission?: Yes Plan: Patient underwent thoracentesis yesterday for evacuation of recurrent pleural effusion. 1050 ml of fluid was removed. She had previous thoracentesis done 2 weeks prior. Breathing is much improved. (2) Coronary artery disease Qualifiers: Coronary Disease-Associated Artery/Lesion type: [place] artery [place] vs. transplanted heart: [place] heart Associated angina: without angina Qualified Code(s): I25.10 - Atherosclerotic heart disease of [place] coronary artery without angina pectoris Is this a current diagnosis for this admission?: Yes Plan: Presently she is chest pain-free. (3) DNR (do not resuscitate) Is this a current diagnosis for this admission?: Yes Plan: Patient requests to be a DNR status. (4) ESRD (end stage renal disease) Is this a current diagnosis for this admission?: Yes Plan: She is on hemodialysis [address] Pascual is assisting with management. (5) History of DVT (deep vein thrombosis) Is this a current diagnosis for this admission?: Yes Plan: She is on Coumadin. Presently she is on IV heparin until INR is therapeutic for A. fib and DVT (6) Aortic stenosis, severe Is this a current diagnosis for this admission?: Yes (7) Atrial fibrillation Qualifiers: Atrial fibrillation type: unspecified Qualified Code(s): I48.91 - Unspecified atrial fibrillation Is this a current diagnosis for this admission?: Yes Plan: She is presently rate controlled. (8) Constipation Qualifiers: Constipation type: other constipation type Qualified Code(s): K59.09 - Other constipation Is this a current diagnosis for this admission?: Yes - Time Time Spent with patient: 25-34 minutes Total Critical Time (Minutes): 20 Medications reviewed and adjusted accordingly: Yes Anticipated discharge: Home with Homehealth - Inpatient Certification Based on my medical assessment, after consideration of the patient's comorbidities, presenting symptoms, or acuity I expect that the services needed warrant INPATIENT care.: Yes I certify that my determination is in accordance with my understanding of Medicare's requirements for reasonable and necessary INPATIENT services [42 CFR 412.3e].: Yes Medical Necessity: Need Close Monitoring Due to Risk of Patient Decompensation
[2018-04-27] MEDS: WARFARIN SODIUM 7.5 MG TABLET PO SCH (22:31)
[2018-04-27] MEDS: DONEPEZIL HCL 5 MG TABLET PO SCH (22:31)
[2018-04-27] MEDS: ACETAMINOPHEN 325 MG TABLET PO SCH (22:31)
[2018-04-28] MEDS: LACTULOSE SYRUP 20 GM/30 ML UDCUP PO SCH ×3 (05:15→21:19)
[2018-04-28] MEDS: CLONIDINE HCL 0.1 MG TABLET PO SCH ×3 (05:28→21:15)
[2018-04-28] MEDS: ACETAMINOPHEN 325 MG TABLET PO PRN ×2 (05:28→20:17)
[2018-04-28 06:41] LABS: HEMATOCRIT 30.8 % (36.0-47.0); HEMOGLOBIN 10.5 g/dL (12.0-15.5); MEAN CORPUSCULAR HEMOGLOBIN 29.9 pg (27.0-33.4); MEAN CORPUSCULAR HGB CONC 34.1 g/dL (32.0-36.0); MEAN CORPUSCULAR VOLUME 88 fl (80-97); PLATELET COUNT 240 10^3/uL (150-450); RED CELL DISTRIBUTION WIDTH 18.7 % (11.5-14.0); WHITE BLOOD COUNT 6.5 10^3/uL (4.0-10.5)
[2018-04-28 06:50] LABS: INTERNATIONAL RATION (INR) 1.26; PROTHROMBIN TIME 16.4 SEC (11.4-15.4)
[2018-04-28 07:17] LABS: ANION GAP 15 (5-19); BLOOD UREA NITROGEN 51 mg/dL (7-20); CALCIUM 9.2 mg/dL (8.4-10.2); CARBON DIOXIDE 27 mmol/L (22-30); CHLORIDE 95 mmol/L (98-107); GLUCOSE 95 mg/dL (75-110); POTASSIUM 4.3 mmol/L (3.6-5.0); SODIUM 136.6 mmol/L (137-145)
[2018-04-28] MEDS: AMLODIPINE BESYLATE 5 MG TABLET PO SCH ×2 (12:51→21:16)
[2018-04-28] MEDS: DULOXETINE HCL 30 MG CAPSULE.DR PO SCH (12:58)
[2018-04-28] MEDS: LORATADINE 10 MG TABLET PO SCH (12:58)
[2018-04-28] MEDS: DOCUSATE SODIUM 100 MG CAPSULE PO SCH ×2 (12:58→17:41)
[2018-04-28] MEDS: INSULIN GLARGINE,HUM.REC.ANLOG 300 UNIT/3 ML INSULN.PEN SUBCUT SCH (12:59)
[2018-04-28] MEDS: CINACALCET HCL 30 MG TABLET PO SCH (12:59)
[2018-04-28] MEDS: HEPARIN SODIUM,PORCINE/D5W 25,000 UNIT/250 ML RTUINJ IV PRN (16:17)
--- NOTE | 2018-04-28 17:01 | RADIOLOGY REPORT (SQ) ---
EXAM DESCRIPTION: CHEST 2 VIEWS COMPLETED DATE/TIME: 04/28/2018 4:54 pm REASON FOR STUDY: Recurrent right pleural effusion COMPARISON: 04/25/2018. EXAM PARAMETERS: NUMBER OF VIEWS: two views TECHNIQUE: Digital Frontal and Lateral radiographic views of the chest acquired. RADIATION DOSE: NA LIMITATIONS: none FINDINGS: LUNGS AND PLEURA: Right pleural effusion, likely unchanged given difference in technique. No pneumothorax. Linear atelectasis in the left lung. MEDIASTINUM AND HILAR STRUCTURES: No masses or contour abnormalities. HEART AND VASCULAR STRUCTURES: Heart normal size. No evidence for failure. BONES: No acute findings. HARDWARE: None in the chest. OTHER: No other significant finding. IMPRESSION: SMALL TO MODERATE RIGHT PLEURAL EFFUSION. NO SIGNIFICANT CHANGE. TECHNICAL DOCUMENTATION: JOB ID: [id number] [employer]- All Rights Reserved Reading location - IP/workstation name: [email or web address]
--- NOTE | 2018-04-28 20:25 | PDOC PROGRESS REPORT ---
Subjective Progress Note for:: 04/28/18 Subjective:: I saw the patient during initiation of hemodialysis this morning at around 8:20 AM. She relates that 2 days ago last Saturday she had episodes of vomiting. She said her blood pressure was also on the low side. Yesterday she said she ate good. Today she said she felt good however she did not get good sleep last night. Her blood pressure was a little bit low to start dialysis. However she denies any shortness of breath no chest pains. Reason For Visit: DYSPNEA Physical Exam Vital Signs: Temp Pulse Resp BP Pulse Ox 98.1 F 82 16 148/46 H 99 04/28/18 15:44 04/28/18 19:00 04/28/18 15:44 04/28/18 15:44 04/28/18 15:44 Intake & Output 04/27/18 04/28/18 04/29/18 06:59 06:59 06:59 Intake Total 048 565 0433 Output Total 2200 Balance 741 726 -133 Weight 50 kg 52 kg Vitals during dialysis: Blood pressure 119/62, heart rate of 70, blood flow rate of 300ml per minute, dialysate flow rate of 600 mL/min. Exam: General appearance: PRESENT: no acute distress, cooperative, well-developed, well-nourished Head exam: PRESENT: atraumatic, normocephalic Eye exam: PRESENT: conjunctiva slightly pale, PERRLA. ABSENT: scleral icterus Neck exam: ABSENT: JVD Respiratory exam: PRESENT: Diminished breath sounds. ABSENT: crackles, rales, rhonchi, unlabored, wheezes Cardiovascular exam: PRESENT: Irregularly irregular rate rhythm -+S1, +S2. Grade 3/6 systolic murmur GI/Abdominal exam: PRESENT: normal bowel sounds, soft. ABSENT: guarding, mass, tenderness Extremities exam: ABSENT: No edema Neurological exam: PRESENT: alert, awake, oriented to person, place and time. Skin exam: PRESENT: dry, warm, Results Laboratory Results: 04/28/18 05:15 04/28/18 05:15 04/25/18 04/25/18 04/28/18 15:15 15:15 05:15 WBC 6.5 RBC 3.50 L Hgb 10.5 L Hct 30.8 L MCV 88 MCH 29.9 MCHC 34.1 RDW 18.7 H Plt Count 240 Sodium Potassium Chloride Carbon Dioxide Anion Gap BUN Creatinine Est GFR ( Amer) Est GFR (Non-Af Amer) Glucose Calcium Fluid pH 8.0 Fluid LDH 81 04/28/18 05:15 WBC RBC Hgb Hct MCV MCH MCHC RDW Plt Count Sodium 136.6 L Potassium 4.3 Chloride 95 L Carbon Dioxide 27 Anion Gap 15 BUN 51 H Creatinine 5.00 H Est GFR ( Amer) 10 L Est GFR (Non-Af Amer) 8 L Glucose 95 Calcium 9.2 Fluid pH Fluid LDH 04/25/18 15:15 Pleural Fluid - Right Pleural Effusion Gram Stain - Final 04/25/18 15:15 Pleural Fluid - Right Pleural Effusion Body Fluid Culture - Final NO AEROBIC OR ANAEROBIC ORGANISMS RECOVERED Impressions: KUB X-Ray 04/23/18 18:10 IMPRESSION: Right pleural effusion -basilar scarring.NO RADIOGRAPHIC EVIDENCE FOR ACUTE ABDOMINAL DISEASE. Marked constipation. Thoracentesis Ultrasound 04/25/18 00:00 IMPRESSION: SUCCESSFUL THORACENTESIS USING ULTRASOUND GUIDANCE. Chest X-Ray 04/28/18 11:30 IMPRESSION: SMALL TO MODERATE RIGHT PLEURAL EFFUSION. NO SIGNIFICANT CHANGE. Assessment & Plan - Diagnosis (1) End stage renal failure on dialysis Is this a current diagnosis for this admission?: Yes Plan: We did dialysis today for 3 hours, using the patient's AV fistula, with 2 potassium bath, blood flow rate of 300 mL per minute, dialysate flow rate of 600 mL per minute, ultrafiltration 2-2.5 L as tolerated, no heparin since patient is on systemic heparin and no Procrit. Patient was monitored throughout dialysis treatment. There was no complications and patient tolerated dialysis well. (2) Pleural effusion, right Is this a current diagnosis for this admission?: Yes Plan: Patient underwent right thoracentesis last April 25. Repeat chest x-ray today did not seem to be significantly changed. Defer further management to primary service. (3) Anemia in chronic kidney disease (CKD) Qualifiers: Chronic kidney disease stage: on chronic dialysis Qualified Code(s): N18.6 - End stage renal disease; D63.1 - Anemia in chronic kidney disease; D63.1 - Anemia in chronic kidney disease; Z99.2 - Dependence on renal dialysis; Z99.2 - Dependence on renal dialysis; Z99.2 - Dependence on renal dialysis; Z99.2 - Dependence on renal dialysis Is this a current diagnosis for this admission?: Yes (4) Hypertension Qualifiers: Hypertension type: essential hypertension Qualified Code(s): I10 - Essential (primary) hypertension Is this a current diagnosis for this admission?: Yes (5) Diabetes mellitus type II, controlled Qualifiers: Is this a current diagnosis for this admission?: Yes (6) History of DVT (deep vein thrombosis) Is this a current diagnosis for this admission?: Yes Plan: Still on heparin drip until therapeutic switch to her Coumadin. - Time Time with patient: 15-25 minutes
[2018-04-28] MEDS: WARFARIN SODIUM 7.5 MG TABLET PO SCH (21:15)
[2018-04-28] MEDS: DONEPEZIL HCL 5 MG TABLET PO SCH (21:15)
[2018-04-28] MEDS: ACETAMINOPHEN 325 MG TABLET PO SCH (21:20)
[2018-04-29] MEDS ORDERED: MELATONIN 5 MG TABLET PO PRN (00:23)
[2018-04-29] MEDS: TEMAZEPAM 7.5 MG CAPSULE PO PRN ×2 (00:34→21:24)
[2018-04-29] MEDS: CLONIDINE HCL 0.1 MG TABLET PO SCH ×2 (06:29→13:57)
[2018-04-29] MEDS: LACTULOSE SYRUP 20 GM/30 ML UDCUP PO SCH ×3 (06:30→21:22)
[2018-04-29 07:14] LABS: ABSOLUTE BASOPHILS # (AUTO) 0.1 10^3/uL (0.0-0.2); ABSOLUTE EOSINOPHILS # (AUTO) 0.1 10^3/uL (0.0-0.6); ABSOLUTE LYMPHOCYTES (AUTO) 1.3 10^3/uL (0.5-4.7); ABSOLUTE MONOCYTES (AUTO) 0.5 10^3/uL (0.1-1.4); ABSOLUTE NEUT (AUTO) 3.5 10^3/uL (1.7-8.2); EOSINOPHILS % (AUTO) 2.7 % (0-6); HEMATOCRIT 31.8 % (36.0-47.0); LYMPHOCYTES % (AUTO) 23.3 % (13-45); MEAN CORPUSCULAR HEMOGLOBIN 29.8 pg (27.0-33.4); MEAN CORPUSCULAR HGB CONC 34.4 g/dL (32.0-36.0); MEAN CORPUSCULAR VOLUME 86 fl (80-97); MONOCYTES % (AUTO) 9.6 % (3-13); PLATELET COUNT 225 10^3/uL (150-450); RED BLOOD COUNT 3.68 10^6/uL (3.72-5.28); RED CELL DISTRIBUTION WIDTH 18.9 % (11.5-14.0); SEGMENTED NEUTROPHILS % (AUTO) 63.4 % (42-78); TOTAL CELLS COUNTED % (AUTO) 100 %; WHITE BLOOD COUNT 5.5 10^3/uL (4.0-10.5)
[2018-04-29 07:20] LABS: INTERNATIONAL RATION (INR) 1.35; PROTHROMBIN TIME 17.4 SEC (11.4-15.4)
[2018-04-29] MEDS: DOCUSATE SODIUM 100 MG CAPSULE PO SCH ×2 (09:05→17:08)
[2018-04-29] MEDS: LORATADINE 10 MG TABLET PO SCH (09:05)
[2018-04-29] MEDS: INSULIN GLARGINE,HUM.REC.ANLOG 300 UNIT/3 ML INSULN.PEN SUBCUT SCH (09:06)
[2018-04-29] MEDS: AMLODIPINE BESYLATE 5 MG TABLET PO SCH ×2 (09:06→21:23)
[2018-04-29] MEDS: CINACALCET HCL 30 MG TABLET PO SCH (09:06)
[2018-04-29] MEDS: CALCITRIOL 0.25 MCG CAPSULE PO SCH (09:06)
[2018-04-29] MEDS: DULOXETINE HCL 30 MG CAPSULE.DR PO SCH (09:06)
[2018-04-29] MEDS: ONDANSETRON 4 MG TAB.RAPDIS SL PRN (13:57)
[2018-04-29] MEDS: HEPARIN SODIUM,PORCINE/D5W 25,000 UNIT/250 ML RTUINJ IV PRN (17:12)
--- NOTE | 2018-04-29 18:10 | PDOC PROGRESS REPORT ---
Subjective Progress Note for:: 04/29/18 Subjective:: Patient says she feels better. She was readmitted with recommendation of the pleural effusion. She is status post thoracentesis benign cytology and pleural fluid analysis. She is a dialysis patient although she apparently compliant with dialysis. Reason For Visit: DYSPNEA Physical Exam Vital Signs: Temp Pulse Resp BP Pulse Ox 98.4 F 86 16 125/50 L 99 04/29/18 15:18 04/29/18 15:18 04/29/18 15:18 04/29/18 15:18 04/29/18 15:18 Intake & Output 04/28/18 04/29/18 04/30/18 06:59 06:59 06:59 Intake Total 726 2185 343 Output Total 2200 Balance 726 -15 343 Weight 52 kg 54.5 kg General appearance: PRESENT: no acute distress, well-developed, well-nourished Head exam: PRESENT: atraumatic GI/Abdominal exam: PRESENT: normal bowel sounds, soft. ABSENT: distended, guarding, mass, organolmegaly, rebound, tenderness Rectal exam: PRESENT: deferred Extremities exam: PRESENT: full ROM. ABSENT: calf tenderness, clubbing, pedal edema Neurological exam: PRESENT: alert, altered, awake, oriented to person, oriented to place, oriented to time, oriented to situation, CN II-XII grossly intact Results Laboratory Results: 04/29/18 05:24 04/28/18 05:15 04/29/18 05:24 WBC 5.5 RBC 3.68 L Hgb 11.0 L Hct 31.8 L MCV 86 MCH 29.8 MCHC 34.4 RDW 18.9 H Plt Count 225 Seg Neutrophils % 63.4 Lymphocytes % 23.3 Monocytes % 9.6 Eosinophils % 2.7 Basophils % 1.0 Absolute Neutrophils 3.5 Absolute Lymphocytes 1.3 Absolute Monocytes 0.5 Absolute Eosinophils 0.1 Absolute Basophils 0.1 Impressions: KUB X-Ray 04/23/18 18:10 IMPRESSION: Right pleural effusion -basilar scarring.NO RADIOGRAPHIC EVIDENCE FOR ACUTE ABDOMINAL DISEASE. Marked constipation. Thoracentesis Ultrasound 04/25/18 00:00 IMPRESSION: SUCCESSFUL THORACENTESIS USING ULTRASOUND GUIDANCE. Chest X-Ray 04/28/18 11:30 IMPRESSION: SMALL TO MODERATE RIGHT PLEURAL EFFUSION. NO SIGNIFICANT CHANGE. Assessment & Plan - Time Time Spent with patient: 15-24 minutes Medications reviewed and adjusted accordingly: Yes Anticipated discharge: SNF Within: within 48 hours - Inpatient Certification Based on my medical assessment, after consideration of the patient's comorbidities, presenting symptoms, or acuity I expect that the services needed warrant INPATIENT care.: Yes Medical Necessity: Risk of Complication if Not Cared For in Hospital, Risk of Diagnosis Which Will Require Inpatient Eval/Care/Monitoring - Plan Summary Plan Summary: Right-sided pleural effusion status post thoracentesis with 1 L fluid removed if this recurs again patient may need further intervention. 2. End-stage renal disease on dialysis she is scheduled for dialysis tomorrow 3. Coronary artery disease stable 4. History of DVT currently on heparin drip as Coumadin was held and INR is currently subtherapeutic 5. Severe aortic stenosis with no intervention being planned 6. Chronic atrial fibrillation Coumadin
[2018-04-29] MEDS: WARFARIN SODIUM 7.5 MG TABLET PO SCH (21:22)
[2018-04-29] MEDS: DONEPEZIL HCL 5 MG TABLET PO SCH (21:22)
[2018-04-29] MEDS: ACETAMINOPHEN 325 MG TABLET PO SCH (21:23)
[2018-04-30 05:58] LABS: HEMATOCRIT 32.7 % (36.0-47.0); HEMOGLOBIN 11.1 g/dL (12.0-15.5); MEAN CORPUSCULAR HEMOGLOBIN 29.5 pg (27.0-33.4); MEAN CORPUSCULAR HGB CONC 33.8 g/dL (32.0-36.0); MEAN CORPUSCULAR VOLUME 87 fl (80-97); PLATELET COUNT 237 10^3/uL (150-450); RED BLOOD COUNT 3.75 10^6/uL (3.72-5.28); WHITE BLOOD COUNT 6.5 10^3/uL (4.0-10.5)
[2018-04-30] MEDS: CLONIDINE HCL 0.1 MG TABLET PO SCH ×4 (06:01→21:26)
[2018-04-30] MEDS: LACTULOSE SYRUP 20 GM/30 ML UDCUP PO SCH ×3 (06:01→21:27)
[2018-04-30 06:03] LABS: INTERNATIONAL RATION (INR) 1.56; PROTHROMBIN TIME 19.4 SEC (11.4-15.4)
[2018-04-30 06:05] LABS: PARTIAL THROMBOPLASTIN TIME 80.1 SEC (23.5-35.8)
[2018-04-30 06:33] LABS: ANION GAP 17 (5-19); BLOOD UREA NITROGEN 49 mg/dL (7-20); CALCIUM 9.6 mg/dL (8.4-10.2); CARBON DIOXIDE 24 mmol/L (22-30); CHLORIDE 98 mmol/L (98-107); GLUCOSE 109 mg/dL (75-110); POTASSIUM 4.4 mmol/L (3.6-5.0); SODIUM 139.1 mmol/L (137-145)
[2018-04-30] MEDS: CINACALCET HCL 30 MG TABLET PO SCH (12:36)
[2018-04-30] MEDS: DOCUSATE SODIUM 100 MG CAPSULE PO SCH ×2 (12:37→17:18)
[2018-04-30] MEDS: LORATADINE 10 MG TABLET PO SCH (12:37)
[2018-04-30] MEDS: INSULIN GLARGINE,HUM.REC.ANLOG 300 UNIT/3 ML INSULN.PEN SUBCUT SCH (12:37)
[2018-04-30] MEDS: DULOXETINE HCL 30 MG CAPSULE.DR PO SCH (12:37)
[2018-04-30] MEDS: AMLODIPINE BESYLATE 5 MG TABLET PO SCH ×2 (12:37→21:27)
--- NOTE | 2018-04-30 17:37 | PDOC PROGRESS REPORT ---
Subjective Progress Note for:: 04/30/18 Subjective:: Patient says her breathing is improved she denies any chest pain. She was seen during dialysis today Reason For Visit: DYSPNEA Physical Exam Vital Signs: Temp Pulse Resp BP Pulse Ox 98.3 F 85 16 110/46 L 95 04/30/18 15:10 04/30/18 15:10 04/30/18 15:10 04/30/18 15:10 04/30/18 15:10 Intake & Output 04/29/18 04/30/18 05/01/18 06:59 06:59 06:59 Intake Total 2184 Output Total 2199 Weight 54.5 kg 53.1 kg General appearance: PRESENT: no acute distress, cooperative, other - Elderly and frail Head exam: PRESENT: atraumatic, normocephalic Eye exam: PRESENT: conjunctiva pink, EOMI, PERRLA. ABSENT: scleral icterus Ear exam: PRESENT: normal external ear exam Mouth exam: PRESENT: moist, tongue midline Neck exam: ABSENT: carotid bruit, JVD, lymphadenopathy, thyromegaly Respiratory exam: PRESENT: decreased breath sounds, unlabored. ABSENT: rales, rhonchi, wheezes Cardiovascular exam: PRESENT: RRR, +S1, +S2, systolic murmur. ABSENT: diastolic murmur, rubs Pulses: PRESENT: normal dorsalis pedis pul Vascular exam: PRESENT: normal capillary refill GI/Abdominal exam: PRESENT: normal bowel sounds, soft. ABSENT: distended, guarding, mass, organolmegaly, rebound, tenderness Rectal exam: PRESENT: deferred Extremities exam: PRESENT: full ROM. ABSENT: calf tenderness, clubbing, pedal edema Musculoskeletal exam: PRESENT: ambulatory Neurological exam: PRESENT: alert, awake, oriented to person, oriented to place , oriented to time, oriented to situation, CN II-XII grossly intact. ABSENT: motor sensory deficit Psychiatric exam: PRESENT: appropriate affect, normal mood Skin exam: PRESENT: dry, intact, warm. ABSENT: cyanosis, rash Results Laboratory Results: 04/30/18 05:39 04/30/18 05:39 04/30/18 04/30/18 05:39 05:39 WBC 6.5 RBC 3.75 Hgb 11.1 L Hct 32.7 L MCV 87 MCH 29.5 MCHC 33.8 RDW 19.0 H Plt Count 237 Sodium 139.1 Potassium 4.4 Chloride 98 Carbon Dioxide 24 Anion Gap 17 BUN 49 H Creatinine 4.80 H Est GFR ( Amer) 11 L Est GFR (Non-Af Amer) 9 L Glucose 109 Calcium 9.6 Impressions: KUB X-Ray 04/23/18 18:10 IMPRESSION: Right pleural effusion -basilar scarring.NO RADIOGRAPHIC EVIDENCE FOR ACUTE ABDOMINAL DISEASE. Marked constipation. Thoracentesis Ultrasound 04/25/18 00:00 IMPRESSION: SUCCESSFUL THORACENTESIS USING ULTRASOUND GUIDANCE. Chest X-Ray 04/28/18 11:30 IMPRESSION: SMALL TO MODERATE RIGHT PLEURAL EFFUSION. NO SIGNIFICANT CHANGE. Assessment & Plan - Time Time Spent with patient: 15-24 minutes Medications reviewed and adjusted accordingly: Yes Anticipated discharge: SNF Within: within 48 hours - Inpatient Certification Based on my medical assessment, after consideration of the patient's comorbidities, presenting symptoms, or acuity I expect that the services needed warrant INPATIENT care.: Yes Medical Necessity: Risk of Complication if Not Cared For in Hospital, Risk of Diagnosis Which Will Require Inpatient Eval/Care/Monitoring - Plan Summary Plan Summary: 1. Right-sided pleural effusion status post thoracentesis with 1 L fluid removed. We will plan to repeat chest x-ray in a.m. possibly discharge if stable 2. End-stage renal disease on dialysis she is status post dialysis today 3. Coronary artery disease stable 4. History of DVT currently on heparin drip and Coumadin Now is slowly climbing up. As long as it continues to trend up patient can likely be discharged back to [facility] in a.[facility]. 5. Severe aortic stenosis with no intervention being planned 6. Chronic atrial fibrillation on Coumadin. 7. Will likely DC in a.m. if she remains stable and INR is acceptable
--- NOTE | 2018-04-30 18:40 | PDOC PROGRESS REPORT ---
Subjective Progress Note for:: 04/30/18 Subjective:: I am seeing the patient during dialysis at around 8:20 AM this morning. She relates that she did not sleep well last night. She said she feels "blah". However she denies any shortness of breath, chest pain, nausea, nor vomiting today. He was able to eat her dinner last night and had breakfast before dialysis. No other specific complaints otherwise. She is being monitored during dialysis. Reason For Visit: DYSPNEA, ESRD Physical Exam Vital Signs: Temp Pulse Resp BP Pulse Ox 98.3 F 85 16 110/46 L 95 04/30/18 15:10 04/30/18 15:10 04/30/18 15:10 04/30/18 15:10 04/30/18 15:10 Intake & Output 04/29/18 04/30/18 05/01/18 06:59 06:59 06:59 Intake Total 2185 1959 876 Output Total 2200 Balance -15 1958 876 Weight 54.5 kg 53.1 kg Vitals during dialysis: Blood pressure 124/65, heart rate of 66, blood flow rate of 350 mg, dialysate flow rate of 600 mL/min. Exam: General appearance: PRESENT: no acute distress, cooperative, well-developed, well-nourished Head exam: PRESENT: atraumatic, normocephalic Eye exam: PRESENT: conjunctiva slightly pale, PERRLA. ABSENT: scleral icterus Neck exam: ABSENT: JVD Respiratory exam: PRESENT: Diminished breath sounds. ABSENT: crackles, rales, rhonchi, unlabored, wheezes Cardiovascular exam: PRESENT: Regular rate rhythm -+S1, +S2. Grade 2/6 systolic murmur GI/Abdominal exam: PRESENT: normal bowel sounds, soft. ABSENT: guarding, mass, tenderness Extremities exam: ABSENT: No edema Neurological exam: PRESENT: alert, awake, oriented to person, place and time. Skin exam: PRESENT: dry, warm, Results Laboratory Results: 04/30/18 05:39 04/30/18 05:39 04/30/18 04/30/18 05:39 05:39 WBC 6.5 RBC 3.75 Hgb 11.1 L Hct 32.7 L MCV 87 MCH 29.5 MCHC 33.8 RDW 19.0 H Plt Count 237 Sodium 139.1 Potassium 4.4 Chloride 98 Carbon Dioxide 24 Anion Gap 17 BUN 49 H Creatinine 4.80 H Est GFR ( Amer) 11 L Est GFR (Non-Af Amer) 9 L Glucose 109 Calcium 9.6 Impressions: KUB X-Ray 04/23/18 18:10 IMPRESSION: Right pleural effusion -basilar scarring.NO RADIOGRAPHIC EVIDENCE FOR ACUTE ABDOMINAL DISEASE. Marked constipation. Thoracentesis Ultrasound 04/25/18 00:00 IMPRESSION: SUCCESSFUL THORACENTESIS USING ULTRASOUND GUIDANCE. Chest X-Ray 04/28/18 11:30 IMPRESSION: SMALL TO MODERATE RIGHT PLEURAL EFFUSION. NO SIGNIFICANT CHANGE. Assessment & Plan - Diagnosis (1) End stage renal failure on dialysis Is this a current diagnosis for this admission?: Yes Plan: We did dialysis today for 3 hours, using the patient's AV fistula, with 2 potassium bath, blood flow rate of 300 mL per minute, dialysate flow rate of 600 mL per minute, ultrafiltration 2-2.5 L as tolerated, no heparin since patient is on systemic heparin and no Procrit. Patient was monitored throughout dialysis treatment. There was no complications and patient tolerated dialysis well. (2) Pleural effusion, right Is this a current diagnosis for this admission?: Yes Plan: Patient underwent right thoracentesis last April 25. Repeat chest x-ray today did not seem to be significantly changed. Defer further management to primary service. (3) Anemia in chronic kidney disease (CKD) Qualifiers: Chronic kidney disease stage: on chronic dialysis Qualified Code(s): N18.6 - End stage renal disease; D63.1 - Anemia in chronic kidney disease; D63.1 - Anemia in chronic kidney disease; Z99.2 - Dependence on renal dialysis; Z99.2 - Dependence on renal dialysis; Z99.2 - Dependence on renal dialysis; Z99.2 - Dependence on renal dialysis Is this a current diagnosis for this admission?: Yes (4) Hypertension Qualifiers: Hypertension type: essential hypertension Qualified Code(s): I10 - Essential (primary) hypertension Is this a current diagnosis for this admission?: Yes (5) Diabetes mellitus type II, controlled Qualifiers: Is this a current diagnosis for this admission?: Yes (6) History of DVT (deep vein thrombosis) Is this a current diagnosis for this admission?: Yes Plan: Still on heparin drip until therapeutic switch to her Coumadin. - Notes Notes: From nephrology standpoint I think she can be sent back to the [facility] once her anticoagulation with Coumadin is therapeutic. Otherwise her next dialysis treatment will be on Saturday. - Time Time with patient: 15-25 minutes
[2018-04-30] MEDS: WARFARIN SODIUM 7.5 MG TABLET PO SCH (21:27)
[2018-04-30] MEDS: DONEPEZIL HCL 5 MG TABLET PO SCH (21:27)
[2018-04-30] MEDS: TEMAZEPAM 7.5 MG CAPSULE PO PRN (21:28)
[2018-04-30] MEDS: ACETAMINOPHEN 325 MG TABLET PO SCH (21:28)
[2018-05-01] MEDS: HEPARIN SODIUM,PORCINE/D5W 25,000 UNIT/250 ML RTUINJ IV PRN (03:00)
[2018-05-01] MEDS: CLONIDINE HCL 0.1 MG TABLET PO SCH ×2 (06:07→13:42)
[2018-05-01] MEDS: LACTULOSE SYRUP 20 GM/30 ML UDCUP PO SCH ×2 (06:07→14:53)
[2018-05-01 07:08] LABS: ABSOLUTE BASOPHILS # (AUTO) 0.1 10^3/uL (0.0-0.2); ABSOLUTE EOSINOPHILS # (AUTO) 0.2 10^3/uL (0.0-0.6); ABSOLUTE LYMPHOCYTES (AUTO) 1.5 10^3/uL (0.5-4.7); ABSOLUTE MONOCYTES (AUTO) 0.5 10^3/uL (0.1-1.4); ABSOLUTE NEUT (AUTO) 3.8 10^3/uL (1.7-8.2); BASOPHILS % (AUTO) 1.2 % (0-2); EOSINOPHILS % (AUTO) 2.6 % (0-6); HEMATOCRIT 34.8 % (36.0-47.0); HEMOGLOBIN 11.7 g/dL (12.0-15.5); LYMPHOCYTES % (AUTO) 24.4 % (13-45); MEAN CORPUSCULAR HEMOGLOBIN 29.4 pg (27.0-33.4); MEAN CORPUSCULAR HGB CONC 33.6 g/dL (32.0-36.0); MEAN CORPUSCULAR VOLUME 88 fl (80-97); MONOCYTES % (AUTO) 9.1 % (3-13); PLATELET COUNT 244 10^3/uL (150-450); RED BLOOD COUNT 3.97 10^6/uL (3.72-5.28); RED CELL DISTRIBUTION WIDTH 19.7 % (11.5-14.0); SEGMENTED NEUTROPHILS % (AUTO) 62.7 % (42-78); TOTAL CELLS COUNTED % (AUTO) 100 %
[2018-05-01 08:34] LABS: INTERNATIONAL RATION (INR) 1.67; PROTHROMBIN TIME 20.5 SEC (11.4-15.4)
--- NOTE | 2018-05-01 08:44 | RADIOLOGY REPORT (SQ) ---
EXAM DESCRIPTION: CHEST SINGLE VIEW COMPLETED DATE/TIME: 05/01/2018 8:28 am REASON FOR STUDY: Follow-up pleural effusion COMPARISON: 04/28/2018. EXAM PARAMETERS: NUMBER OF VIEWS: One view. TECHNIQUE: Single frontal radiographic view of the chest acquired. RADIATION DOSE: NA LIMITATIONS: None. FINDINGS: LUNGS AND PLEURA: Right pleural effusion appears smaller. Left lung clear. MEDIASTINUM AND HILAR STRUCTURES: No masses. Contour normal. HEART AND VASCULAR STRUCTURES: Heart normal in size. Normal vasculature. BONES: No acute findings. HARDWARE: None in the chest. OTHER: No other significant finding. IMPRESSION: DECREASE IN SIZE OF THE RIGHT PLEURAL EFFUSION. TECHNICAL DOCUMENTATION: JOB ID: [id number] [employer]- All Rights Reserved Reading location - IP/workstation name: [email or web address]
[2018-05-01] MEDS: DOCUSATE SODIUM 100 MG CAPSULE PO SCH ×2 (09:44→17:38)
[2018-05-01] MEDS: LORATADINE 10 MG TABLET PO SCH (09:44)
[2018-05-01] MEDS: DULOXETINE HCL 30 MG CAPSULE.DR PO SCH (09:44)
[2018-05-01] MEDS: CINACALCET HCL 30 MG TABLET PO SCH (09:44)
[2018-05-01] MEDS: CALCITRIOL 0.25 MCG CAPSULE PO SCH (09:44)
[2018-05-01] MEDS: INSULIN GLARGINE,HUM.REC.ANLOG 300 UNIT/3 ML INSULN.PEN SUBCUT SCH (09:45)
[2018-05-01] MEDS: AMLODIPINE BESYLATE 5 MG TABLET PO SCH (09:45)
--- NOTE | 2018-05-01 13:17 | PDOC DISCHARGE SUMMARY ---
General - Admit/Disc Date/PCP Admission Date/Primary Care Provider: 04/23/18 21:10 LOW FARIAS, DO Discharge Date: 05/01/18 - Discharge Diagnosis (1) Recurrent right pleural effusion Is this a current diagnosis for this admission?: Yes (2) Aortic stenosis, severe Is this a current diagnosis for this admission?: Yes (3) Deep vein thrombosis (DVT) Is this a current diagnosis for this admission?: Yes (4) End stage renal failure on dialysis Is this a current diagnosis for this admission?: Yes - Additional Information Resuscitation Status: Do Not Resuscitate Discharge Diet: Other (Comments) - Renal Discharge Activity: Activity As Tolerated Home Medications: Acetaminophen [Tylenol 325 mg Tablet] 650 mg PO QHS 04/23/18 Albuterol Sulfate [Albuterol Sulfate 2.5mg/3 mL] 1 vial IH Q4HP PRN 04/23/18 Amlodipine Besylate [Norvasc 5 mg Tablet] 5 mg PO Q12 04/23/18 Calcitriol [Rocaltrol 0.25 mcg Capsule] 0.25 mcg PO SUTUTHSA@1000 04/23/18 Cinacalcet HCl [Sensipar 30 mg Tablet] 30 mg PO DAILY 04/23/18 Clonidine HCl [Catapres 0.1 mg Tablet] 0.1 mg PO Q8 04/23/18 Docusate Sodium [Colace 100 mg Capsule] 100 mg PO DAILY 04/23/18 Donepezil HCl [Aricept] 10 mg PO QHS 04/23/18 Duloxetine HCl [Cymbalta] 30 mg PO DAILY 04/23/18 Fexofenadine HCl [Zenaida] 180 mg PO DAILY 04/23/18 Insulin Aspart [Novolog Insulin (Aspart) 100 unit/mL] 0 unit SUBCUT .SLD SCALE 04/23/18 Insulin Glargine,Hum.rec.anlog [Basaglar Kwikpen U-100] 8 unit SQ DAILY Nitroglycerin [Nitrostat 0.4 mg (1/150 Gr) Tabs 25/Bottle] 1 tab SL Q5MP PRN Polyvinyl Alcohol [Artificial Tears] 1 drop OP QIDP PRN 04/23/18 Warfarin Sodium [Coumadin 7.5 mg Tablet] 10 mg PO QHS tablet 05/01/18 History of Present Illness History of Present Illness: JORGE LUIS WATERS is a 82 year old female with end-stage renal disease on dialysis Saturday, Saturday, Saturday, last dialysis today, she has a left forearm AV fistula access. She has been discharged from our facility 04/15 with a diagnosis of right pleural effusion status post right thoracentesis with transudative effusion, pleurodesis was done. Patient has been doing well until the end of the last week she started again with progressive shortness of breath associated with mild cough and sputum that she is swallowing. Denies pleuritic chest pain, wheezing, fever, chills, she is always cold. Also complains of diffuse abdominal pain and tells me that she has been constipated for the last 8 days. Complains of mild dysuria but denies hematuria or frequency. Patient has history of CVA and she is most of the time wheelchair bound unable to walk secondary to left hemiparesis. Hospital Course Hospital Course: patient was readmitted about a week following discharge due to recurrent pleural effusion. She had thoracentesis done again with removal of about 1 L of fluid. Repeat chest x-ray done today reveals reduction in the amount of pleural fluid. Patient's respiratory status has been fairly stable and has required no oxygen over the last few days. Patient is on Coumadin for DVT and her Coumadin was held prior to thoracentesis. Although it has been restarted she was placed on heparin bridge and INR is still subtherapeutic at 1.65 today. I have temporarily increased her Coumadin to 10 mg and I will suggest repeat INR in another day and subsequent adjustment of her Coumadin dose as indicated. Patient was not hypoxemic no tachypneic on initial presentation although she did endorse objective progressive shortness of breath. Patient is a DO NOT RESUSCITATE Physical Exam Vital Signs: Temp Pulse Resp BP Pulse Ox 98.3 F 79 18 123/56 L 97 05/01/18 11:17 05/01/18 11:17 05/01/18 11:17 05/01/18 11:17 05/01/18 11:17 Intake & Output 04/30/18 05/01/18 05/02/18 06:59 06:59 06:59 Intake Total 1958 1487 Output Total 2700 Balance 1958 -1212 Weight 53.1 kg 53.2 kg General appearance: PRESENT: no acute distress, well-developed Head exam: PRESENT: atraumatic, normocephalic Eye exam: PRESENT: conjunctiva pink, EOMI, PERRLA. ABSENT: scleral icterus Ear exam: PRESENT: normal external ear exam Mouth exam: PRESENT: moist, tongue midline Neck exam: ABSENT: carotid bruit, JVD, lymphadenopathy, thyromegaly Respiratory exam: PRESENT: clear to auscultation korina. ABSENT: rales, rhonchi, wheezes Cardiovascular exam: PRESENT: RRR, +S1, +S2, systolic murmur - Grade 4. ABSENT : diastolic murmur, rubs Pulses: PRESENT: normal dorsalis pedis pul Vascular exam: PRESENT: normal capillary refill GI/Abdominal exam: PRESENT: normal bowel sounds, soft. ABSENT: distended, guarding, mass, organolmegaly, rebound, tenderness Rectal exam: PRESENT: deferred Extremities exam: PRESENT: full ROM. ABSENT: calf tenderness, clubbing, pedal edema Neurological exam: PRESENT: alert, awake, oriented to person, oriented to place , oriented to time, oriented to situation, CN II-XII grossly intact. ABSENT: motor sensory deficit Psychiatric exam: PRESENT: appropriate affect, normal mood. ABSENT: homicidal ideation, suicidal ideation Skin exam: PRESENT: dry, intact, warm. ABSENT: cyanosis, rash Results Laboratory Results: 05/01/18 06:43 04/30/18 05:39 05/01/18 06:43 WBC 6.0 RBC 3.97 Hgb 11.7 L Hct 34.8 L MCV 88 MCH 29.4 MCHC 33.6 RDW 19.7 H Plt Count 244 Seg Neutrophils % 62.7 Lymphocytes % 24.4 Monocytes % 9.1 Eosinophils % 2.6 Basophils % 1.2 Absolute Neutrophils 3.8 Absolute Lymphocytes 1.5 Absolute Monocytes 0.5 Absolute Eosinophils 0.2 Absolute Basophils 0.1 Impressions: KUB X-Ray 04/23/18 18:10 IMPRESSION: Right pleural effusion -basilar scarring.NO RADIOGRAPHIC EVIDENCE FOR ACUTE ABDOMINAL DISEASE. Marked constipation. Thoracentesis Ultrasound 04/25/18 00:00 IMPRESSION: SUCCESSFUL THORACENTESIS USING ULTRASOUND GUIDANCE. Chest X-Ray 05/01/18 08:00 IMPRESSION: DECREASE IN SIZE OF THE RIGHT PLEURAL EFFUSION. Qualifiers - * PATIENT BEING DISCHARGED WITH ANY OF THE FOLLOWING DIAGNOSIS: No Plan Time Spent: Greater than 30 Minutes
[2018-05-01 15:44] VITALS: BP 117/51
== END 2018-05-01 18:44 | DRG 186 ==
LOC: ER 16:06 → EH 21:10 → 4N 23:35
PROVIDERS: ADMIT Internal Medicine; ATTEND Internal Medicine
PROC: 0W993ZX Drainage of Right Pleural Cavity, Percutaneous Approach, Diagnostic (ICD-10-PCS; principal; 2018-04-25)
PROC: 5A1D70Z Performance of Urinary Filtration, Intermittent, Less than 6 Hours Per Day (ICD-10-PCS; 2018-04-25)
PROC: 5A1D70Z Performance of Urinary Filtration, Intermittent, Less than 6 Hours Per Day (ICD-10-PCS; 2018-04-28)
PROC: 5A1D70Z Performance of Urinary Filtration, Intermittent, Less than 6 Hours Per Day (ICD-10-PCS; 2018-04-30)
DX: J90 Pleural effusion, not elsewhere classified (principal); N18.6 End stage renal disease; I12.0 Hypertensive chronic kidney disease with stage 5 chronic kidney disease or end stage renal disease; I69.354 Hemiplegia and hemiparesis following cerebral infarction affecting left non-dominant side; Z99.2 Dependence on renal dialysis; Z66 Do not resuscitate; J44.9 Chronic obstructive pulmonary disease, unspecified; I25.10 Atherosclerotic heart disease of native coronary artery without angina pectoris; E78.5 Hyperlipidemia, unspecified; I35.0 Nonrheumatic aortic (valve) stenosis; K21.9 Gastro-esophageal reflux disease without esophagitis; F41.9 Anxiety disorder, unspecified; F32.9 Major depressive disorder, single episode, unspecified; E11.22 Type 2 diabetes mellitus with diabetic chronic kidney disease; E11.43 Type 2 diabetes mellitus with diabetic autonomic (poly)neuropathy; E11.319 Type 2 diabetes mellitus with unspecified diabetic retinopathy without macular edema; E11.21 Type 2 diabetes mellitus with diabetic nephropathy; F43.10 Post-traumatic stress disorder, unspecified; I48.2 Chronic atrial fibrillation; Z79.01 Long term (current) use of anticoagulants; Z79.4 Long term (current) use of insulin; Z79.899 Other long term (current) drug therapy; Z86.718 Personal history of other venous thrombosis and embolism; Z86.711 Personal history of pulmonary embolism; I25.2 Old myocardial infarction; Z90.710 Acquired absence of both cervix and uterus; Z95.5 Presence of coronary angioplasty implant and graft; K59.00 Constipation, unspecified; Z95.828 Presence of other vascular implants and grafts; H54.40 Blindness, one eye, unspecified eye; M79.7 Fibromyalgia; D63.1 Anemia in chronic kidney disease; Z87.891 Personal history of nicotine dependence; Z82.49 Family history of ischemic heart disease and other diseases of the circulatory system; Z88.6 Allergy status to analgesic agent
CPT/HCPCS: 32555; 36415; 71045; 71046; 74018; 80048; 82040; 82042; 82272; 82310; 82962; 83036; 83615; 83735; 83986; 84100; 85025; 85027; 85610; 85730; 87070; 87075; 87205; 88305; 89050; 94799; 99285; J1644; J1815; J3490; S0119

== ENCOUNTER 2019-01-17 20:22 | Emergency (ER) | payer MEDICARE, MEDICAID ==
[2019-01-17 20:28] VITALS: BP 119/52
--- NOTE | 2019-01-17 22:31 | RADIOLOGY REPORT (SQ) ---
EXAM DESCRIPTION: RadLex: XR HIP 2 OR MORE VIEWS Views: 2 CLINICAL HISTORY: 83 years Female, fall, pain COMPARISON: None. FINDINGS: AP pelvis: No displaced pelvic fractures. No diastasis of the sacroiliac joints or symphysis pubis. Extensive vascular calcifications are noted. Right sacral stimulator is noted, with intact lead. An IVC filter is partially visualized. Left hip frog-leg view: No fracture or dislocation of the left hip. IMPRESSION: 1. No acute findings.
--- NOTE | 2019-01-17 22:37 | RADIOLOGY REPORT (SQ) ---
EXAM DESCRIPTION: Left knee RadLex: XR KNEE 3 VIEWS Views: 3 CLINICAL HISTORY: 83 years Female, fall, pain COMPARISON: None. FINDINGS: There is moderate osteopenia. Chondrocalcinosis in the medial and lateral joint. No patellar subluxation. No significant joint effusion. Sclerosis is noted in the femoral condyles. There are no acute fractures. Alignment is anatomic. Extensive vascular calcifications are noted. IMPRESSION: 1. Osteopenia. 2. Chronic changes as described. 3. No displaced fractures. If symptoms persist, consider follow-up radiographs.
--- NOTE | 2019-01-17 22:41 | RADIOLOGY REPORT (SQ) ---
EXAM DESCRIPTION: Left ankle RadLex: XR ANKLE 3 OR MORE VIEWS Views: 3 CLINICAL HISTORY: 83 years Female, fall, pain COMPARISON: None. FINDINGS: Overall alignment of the ankle is anatomic. There is moderate osteopenia. No acute fractures are identified, although the osteopenia somewhat reduces sensitivity for detection of nondisplaced fractures. Plantar and Achilles calcaneal spurs are noted. There are extensive vascular calcifications. IMPRESSION: 1. Osteopenia 2. No displaced fractures or dislocation. 3. If symptoms persist, consider follow-up radiographs since osteopenia reduces sensitivity for detection of nondisplaced fractures.
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
== END 2019-01-18 01:00 | disposition home or self-care (01) ==
LOC: ER 20:22
DX: M25.552 Pain in left hip (principal); M25.562 Pain in left knee; M25.572 Pain in left ankle and joints of left foot; I25.10 Atherosclerotic heart disease of native coronary artery without angina pectoris; I12.0 Hypertensive chronic kidney disease with stage 5 chronic kidney disease or end stage renal disease; N18.6 End stage renal disease; E11.22 Type 2 diabetes mellitus with diabetic chronic kidney disease; Z99.2 Dependence on renal dialysis; Z87.892 Personal history of anaphylaxis; Z88.5 Allergy status to narcotic agent; Z88.3 Allergy status to other anti-infective agents; Z88.8 Allergy status to other drugs, medicaments and biological substances; Z95.5 Presence of coronary angioplasty implant and graft
CPT/HCPCS: 99283

== ENCOUNTER 2019-02-16 18:51 | Emergency (ER) | payer MEDICARE, MEDICAID ==
[2019-02-16] MEDS ORDERED: TRANEXAMIC ACID INJ/PF 1,000 MG/10 ML SDV IV ONE (21:03)
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
[2019-02-16 22:54] VITALS: BP 163/79
== END 2019-02-16 22:54 | disposition home or self-care (01) ==
LOC: ER 18:51
DX: T82.838A Hemorrhage due to vascular prosthetic devices, implants and grafts, initial encounter (principal); Y84.1 Kidney dialysis as the cause of abnormal reaction of the patient, or of later complication, without mention of misadventure at the time of the procedure; I48.91 Unspecified atrial fibrillation; Z79.01 Long term (current) use of anticoagulants; I25.10 Atherosclerotic heart disease of native coronary artery without angina pectoris; I12.0 Hypertensive chronic kidney disease with stage 5 chronic kidney disease or end stage renal disease; N18.6 End stage renal disease; E16.2 Hypoglycemia, unspecified; Z99.2 Dependence on renal dialysis; Z88.5 Allergy status to narcotic agent; Z88.8 Allergy status to other drugs, medicaments and biological substances; Z88.3 Allergy status to other anti-infective agents; Z95.5 Presence of coronary angioplasty implant and graft
CPT/HCPCS: 99283; J3490

== ENCOUNTER 2019-03-24 15:01 | Observation (INO) | payer MEDICARE, MEDICAID ==
[2019-03-24 15:28] LABS: ABSOLUTE BASOPHILS # (AUTO) 0.1 10^3/uL (0.0-0.2); ABSOLUTE EOSINOPHILS # (AUTO) 0.1 10^3/uL (0.0-0.6); ABSOLUTE LYMPHOCYTES (AUTO) 0.9 10^3/uL (0.5-4.7); ABSOLUTE MONOCYTES (AUTO) 0.5 10^3/uL (0.1-1.4); ABSOLUTE NEUT (AUTO) 6.1 10^3/uL (1.7-8.2); BASOPHILS % (AUTO) 1.2 % (0-2); EOSINOPHILS % (AUTO) 0.8 % (0-6); HEMATOCRIT 32.4 % (36.0-47.0); HEMOGLOBIN 10.5 g/dL (12.0-15.5); LYMPHOCYTES % (AUTO) 11.3 % (13-45); MEAN CORPUSCULAR HEMOGLOBIN 29.1 pg (27.0-33.4); MEAN CORPUSCULAR HGB CONC 32.5 g/dL (32.0-36.0); MEAN CORPUSCULAR VOLUME 89 fl (80-97); MONOCYTES % (AUTO) 6.3 % (3-13); PLATELET COUNT 254 10^3/uL (150-450); RED BLOOD COUNT 3.63 10^6/uL (3.72-5.28); RED CELL DISTRIBUTION WIDTH 18.9 % (11.5-14.0); SEGMENTED NEUTROPHILS % (AUTO) 80.4 % (42-78); TOTAL CELLS COUNTED % (AUTO) 100 %; WHITE BLOOD COUNT 7.6 10^3/uL (4.0-10.5)
[2019-03-24 15:47] LABS: ALANINE AMINOTRANSFERASE 25 U/L (9-52); ALBUMIN 3.3 g/dL (3.5-5.0); ALKALINE PHOSPHATASE 110 U/L (38-126); ANION GAP 10 (5-19); ASPARTATE AMINO TRANSFERASE 25 U/L (14-36); BILIRUBIN,DIRECT 0.6 mg/dL (0.0-0.4); BILIRUBIN,TOTAL 0.8 mg/dL (0.2-1.3); BLOOD UREA NITROGEN 36 mg/dL (7-20); CALCIUM 10.2 mg/dL (8.4-10.2); CARBON DIOXIDE 29 mmol/L (22-30); CHLORIDE 97 mmol/L (98-107); GLUCOSE 168 mg/dL (75-110); POTASSIUM 3.9 mmol/L (3.6-5.0); SODIUM 135.7 mmol/L (137-145); TOTAL PROTEIN 6.5 g/dL (6.3-8.2)
--- NOTE | 2019-03-24 15:52 | RADIOLOGY REPORT (SQ) ---
EXAM DESCRIPTION: CHEST SINGLE VIEW COMPLETED DATE/TIME: 03/24/2019 3:39 pm REASON FOR STUDY: SOB COMPARISON: 04/28/2018 EXAM PARAMETERS: NUMBER OF VIEWS: One view. TECHNIQUE: Single frontal radiographic view of the chest acquired. RADIATION DOSE: NA LIMITATIONS: None. FINDINGS: LUNGS AND PLEURA: Right pleural effusion. There is slight opacification just cephalad to the minor fissure. MEDIASTINUM AND HILAR STRUCTURES: No masses. Contour normal. HEART AND VASCULAR STRUCTURES: Cardiomegaly. No marquise pulmonary edema. BONES: No acute findings. HARDWARE: None in the chest. OTHER: No other significant finding. IMPRESSION: Cardiomegaly. Right pleural effusion. Cannot exclude mild airspace disease in the righ t middle lobe. TECHNICAL DOCUMENTATION: JOB ID: [id number] [employer]- All Rights Reserved Reading location - IP/workstation name: [email or web address]
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
[2019-03-24] MEDS ORDERED: ONDANSETRON HCL INJ/PF 4 MG/2 ML SDV IV PRN (17:50)
[2019-03-24] MEDS ORDERED: IPRATROPIUM/ALBUTEROL 0.5-2.5 MG/3 ML AMPUL NEB PRN (17:50)
[2019-03-24] MEDS ORDERED: ACETAMINOPHEN 325 MG TABLET PO PRN (17:50)
[2019-03-24] MEDS ORDERED: TEMAZEPAM 7.5 MG CAPSULE PO PRN (17:50)
[2019-03-24] MEDS ORDERED: PROMETHAZINE HCL INJ 25 MG/1 ML VIAL IV PRN (17:50)
[2019-03-24] MEDS ORDERED: NITROGLYCERIN 0.4 MG/TAB 25 TAB/BOTTLE SL PRN (17:56)
[2019-03-24] MEDS ORDERED: LABETALOL HCL INJ 20 MG/4 ML DISP.SYRIN IV PRN (17:58)
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
[2019-03-24] MEDS ORDERED: DULOXETINE HCL 30 MG CAPSULE.DR PO SCH (18:32)
[2019-03-24 18:40] LABS: TOTAL PROTEIN 6.4 g/dL (6.3-8.2)
[2019-03-24 19:27] LABS: PROTHROMBIN TIME 16.8 SEC (11.4-15.4)
[2019-03-24] MEDS: TRAZODONE HCL 50 MG TABLET PO SCH (21:46)
[2019-03-24] MEDS: FAMOTIDINE INJ/PF 20 MG/2 ML SDV IV SCH (21:46)
[2019-03-24] MEDS ORDERED: DONEPEZIL HCL 5 MG TABLET PO SCH (22:00)
[2019-03-24] MEDS ORDERED: WARFARIN SODIUM 7.5 MG TABLET PO SCH (22:00)
[2019-03-24] MEDS ORDERED: HEPARIN SOD (PORCINE) 5,000 UNIT/ML 1 ML SYRINGE SUBCUT SCH (22:00)
[2019-03-24] MEDS ORDERED: CLONIDINE HCL 0.1 MG TABLET PO SCH (22:00)
[2019-03-24] MEDS ORDERED: (PENDING PHARMACY ID) (Donepezil Hcl [Aricept] 10 MG) PO SCH (22:00)
[2019-03-24] MEDS ORDERED: AMLODIPINE BESYLATE 5 MG TABLET PO SCH (22:00)
[2019-03-25] MEDS ORDERED: NORMAL SALINE 1000 ML 1,000 ML IV PRN (05:00)
[2019-03-25] MEDS ORDERED: CLONIDINE HCL 0.2 MG TABLET PO ONE (05:00)
[2019-03-25 07:01] LABS: ABSOLUTE BASOPHILS # (AUTO) 0.1 10^3/uL (0.0-0.2); ABSOLUTE EOSINOPHILS # (AUTO) 0.1 10^3/uL (0.0-0.6); ABSOLUTE LYMPHOCYTES (AUTO) 1.1 10^3/uL (0.5-4.7); ABSOLUTE MONOCYTES (AUTO) 0.5 10^3/uL (0.1-1.4); ABSOLUTE NEUT (AUTO) 6.9 10^3/uL (1.7-8.2); BASOPHILS % (AUTO) 0.6 % (0-2); EOSINOPHILS % (AUTO) 0.8 % (0-6); HEMATOCRIT 33.3 % (36.0-47.0); HEMOGLOBIN 10.7 g/dL (12.0-15.5); LYMPHOCYTES % (AUTO) 12.5 % (13-45); MEAN CORPUSCULAR HEMOGLOBIN 28.6 pg (27.0-33.4); MEAN CORPUSCULAR HGB CONC 32.1 g/dL (32.0-36.0); MEAN CORPUSCULAR VOLUME 89 fl (80-97); MONOCYTES % (AUTO) 5.9 % (3-13); PLATELET COUNT 245 10^3/uL (150-450); RED BLOOD COUNT 3.73 10^6/uL (3.72-5.28); RED CELL DISTRIBUTION WIDTH 19.3 % (11.5-14.0); SEGMENTED NEUTROPHILS % (AUTO) 80.2 % (42-78); TOTAL CELLS COUNTED % (AUTO) 100 %; WHITE BLOOD COUNT 8.7 10^3/uL (4.0-10.5)
[2019-03-25 07:21] LABS: ANION GAP 11 (5-19); BLOOD UREA NITROGEN 41 mg/dL (7-20); CALCIUM 10.4 mg/dL (8.4-10.2); CARBON DIOXIDE 26 mmol/L (22-30); CHLORIDE 99 mmol/L (98-107); GLUCOSE 137 mg/dL (75-110); POTASSIUM 4.1 mmol/L (3.6-5.0); SODIUM 136.1 mmol/L (137-145)
--- NOTE | 2019-03-25 07:56 | EKG REPORT ---
SEVERITY:- ABNORMAL ECG - ATRIAL FIBRILLATION, V-RATE 73-126 S1,S2,S3 PATTERN NONSPECIFIC T ABNORMALITIES, LATERAL LEADS : Confirmed by: Jade Gibson MD 25-Mar-2019 07:55:16
[2019-03-25] MEDS ORDERED: DEXTROSE 50%-WATER SYRINGE 25 GM/50 ML DOSE IV PRN (08:30)
[2019-03-25] MEDS ORDERED: GLUCAGON,HUMAN RECOMB 1 MG INJ IM PRN ×3 (08:30→10:21)
[2019-03-25] MEDS ORDERED: DEXTROSE 40% GEL 15 GM TUBE PO PRN ×5 (08:30→10:21)
[2019-03-25] MEDS ORDERED: DEXTROSE 50%-WATER SYRINGE 12.5 GM/25 ML DOSE IV PRN (08:30)
[2019-03-25] MEDS ORDERED: DEXTROSE 40% GEL 15 GM TUBE X 2 PO PRN (08:30)
[2019-03-25] MEDS ORDERED: CINACALCET HCL 30 MG TABLET PO SCH (10:00)
[2019-03-25] MEDS ORDERED: DOCUSATE SODIUM 100 MG/10 ML UDC PO SCH (10:00)
[2019-03-25] MEDS ORDERED: DULOXETINE HCL 30 MG CAPSULE.DR PO SCH (10:00)
[2019-03-25] MEDS ORDERED: (PENDING PHARMACY ID) (Carboxymethylcellulose Sodium [Refresh Tears] 1 DROP) OU PRN (10:17)
[2019-03-25] MEDS ORDERED: NITROGLYCERIN 0.4 MG/TAB 25 TAB/BOTTLE SL PRN (10:17)
[2019-03-25] MEDS ORDERED: DEXTROSE 50%-WATER 25 GM/50 ML DISP.SYRIN IV PRN ×4 (10:19→10:21)
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
[2019-03-25] MEDS: APIXABAN 2.5 MG TABLET PO SCH ×2 (10:40→23:16)
[2019-03-25] MEDS: CLONIDINE HCL 0.1 MG TABLET PO SCH ×2 (13:51→23:30)
[2019-03-25] MEDS: DULOXETINE HCL 30 MG CAPSULE.DR PO SCH (13:51)
[2019-03-25] MEDS: DOCUSATE SODIUM 100 MG CAPSULE PO SCH ×2 (13:51→18:47)
[2019-03-25] MEDS: INSULIN LISPRO 100 UNIT/ML 3 ML VIAL SUBCUT SCH ×3 (13:52→23:16)
[2019-03-25] MEDS: FAMOTIDINE INJ/PF 20 MG/2 ML SDV IV SCH ×2 (13:56→23:30)
[2019-03-25] MEDS ORDERED: (PENDING PHARMACY ID) (Sevelamer Carbonate [Renvela] 2,400 MG) PO SCH (14:00)
[2019-03-25] MEDS: INSULIN GLARGINE,HUM.REC.ANLOG 1,000 UNIT/10 ML VIAL SUBCUT SCH (14:47)
[2019-03-25] MEDS ORDERED: CARBOXYMETHYLCELLULOSE SOD 0.5% 0.4 ML DROPERETTE OU PRN (15:04)
--- NOTE | 2019-03-25 15:54 | PDOC PROGRESS REPORT ---
Subjective Progress Note for:: 03/25/19 Subjective:: BRENT WATERS is a 83 year old female past medical history of diabetes, right MCA CVA, ESRD on HD MWF, hypertension, pulmonary embolism with IVC filter, left leg DVT on Coumadin currently on Eliquis, recurrent pleural effusion, constipation, depression, who is a DNR/DNI and a resident of [facility] the [facility]. She is presenting to ED complaining of SOB. Stating that about a week ago she was diagnosed with pneumonia and was placed on antibiotics which she fi nished yesterday, but symptoms of shortness of breath, productive cough not improved. Also complaining of dysuria and nausea but denies any chest pain, abdominal pain, vomiting, diarrhea. ED a chest x-ray showed right pleural effusion, CBC and CMP unchanged. 03/25/2019. Patient complained that she could not sleep last night, to be anxious, shortness of breath has not worsened, probably sitting in her bed enjoying her breakfast in no apparent distress, any fever, chills, nausea, vomiting, diarrhea. Scheduled to have hemodialysis today, centesis was planned for today however it was delayed by radiology because patient received Eliquis the day prior to admission. Reason For Visit: PLEURAL EFFUSION Physical Exam Vital Signs: Temp Pulse Resp BP Pulse Ox 97.2 F 75 21 H 154/73 H 99 03/25/19 07:46 03/25/19 07:46 03/25/19 07:46 03/25/19 07:46 03/25/19 07:46 Intake & Output 03/24/19 03/25/19 03/26/19 06:59 06:59 06:59 Intake Total 0 Output Total 0 Balance 0 Weight 61.5 kg General appearance: PRESENT: no acute distress, well-developed, well-nourished Head exam: PRESENT: atraumatic, normocephalic Respiratory exam: PRESENT: decreased breath sounds - Right lower lobe.. ABSENT: rales, rhonchi, wheezes Cardiovascular exam: PRESENT: RRR. ABSENT: diastolic murmur, rubs, systolic murmur GI/Abdominal exam: PRESENT: normal bowel sounds, soft. ABSENT: distended, guarding, mass, organolmegaly, rebound, tenderness Neurological exam: PRESENT: alert, awake, oriented to person, oriented to place, oriented to time, oriented to situation, CN II-XII grossly intact, motor sensory deficit Results Laboratory Results: 03/25/19 05:29 03/25/19 05:29 03/24/19 03/24/19 03/25/19 15:15 15:15 05:29 WBC 8.7 RBC 3.73 Hgb 10.7 L Hct 33.3 L MCV 89 MCH 28.6 MCHC 32.1 RDW 19.3 H Plt Count 245 Seg Neutrophils % 80.2 H Lymphocytes % 12.5 L Monocytes % 5.9 Eosinophils % 0.8 Basophils % 0.6 Absolute Neutrophils 6.9 Absolute Lymphocytes 1.1 Absolute Monocytes 0.5 Absolute Eosinophils 0.1 Absolute Basophils 0.1 Sodium 135.7 L Potassium 3.9 Chloride 97 L Carbon Dioxide 29 Anion Gap 10 BUN 36 H Creatinine 3.14 H Est GFR ( Amer) 17 L Est GFR (Non-Af Amer) 14 L Glucose 168 H Calcium 10.2 Phosphorus Magnesium Total Bilirubin 0.8 AST 25 ALT 25 Alkaline Phosphatase 110 Total Protein 6.5 6.4 Albumin 3.3 L 03/25/19 05:29 WBC RBC Hgb Hct MCV MCH MCHC RDW Plt Count Seg Neutrophils % Lymphocytes % Monocytes % Eosinophils % Basophils % Absolute Neutrophils Absolute Lymphocytes Absolute Monocytes Absolute Eosinophils Absolute Basophils Sodium 136.1 L Potassium 4.1 Chloride 99 Carbon Dioxide 26 Anion Gap 11 BUN 41 H Creatinine 3.55 H Est GFR ( Amer) 15 L Est GFR (Non-Af Amer) 12 L Glucose 137 H Calcium 10.4 H Phosphorus 5.0 H Magnesium 2.2 Total Bilirubin AST ALT Alkaline Phosphatase Total Protein Albumin Impressions: Chest X-Ray 03/24/19 15:06 IMPRESSION: Cardiomegaly. Right pleural effusion. Cannot exclude mild airspace disease in the right middle lobe. Assessment and Plan - Diagnosis (1) Recurrent right pleural effusion Is this a current diagnosis for this admission?: No Plan: Recurrent. Likely due to end-stage renal disease. T6 was planned however delayed by radiology because patient received Eliquis the day prior to admission. Eliquis is held and patient receiving subcutaneous heparin instead. Continue telemetry, supplemental oxygen. Therapeutic and diagnostic thoracentesis scheduled for tomorrow. Hold Eliquis in anticipation of thoracentesis tomorrow. Continue heparin. (2) Atrial fibrillation Qualifiers: Atrial fibrillation type: chronic Qualified Code(s): I48.2 - Chronic atrial fibrillation Is this a current diagnosis for this admission?: No Plan: Controlled. Continue beta-blockers. Used to be on Coumadin, currently on Eliquis. Hold Eliquis today in anticipation of thoracentesis tomorrow. Continue heparin. (3) Constipation Qualifiers: Is this a current diagnosis for this admission?: No Plan: Chronic. Restart home meds. (4) Diabetes mellitus type II, controlled Qualifiers: Diabetes mellitus [facility] insulin use: with intermediate manager use Diabetes mellitus complication status: with kidney complications Chronic kidney disease stage: on chronic dialysis Is this a current diagnosis for this admission?: No Plan: Diabetic diet, sliding scale insulin, pre-meal insulin, long-acting insulin. Adjust dosage as needed. Hypoglycemia protocol. (5) ESRD (end stage renal disease) Is this a current diagnosis for this admission?: Yes Plan: On HD MWF. Status post HD today. Renal diet. Monitor volume status. Monitor electrolytes. Nephrology consult for hemodialysis. (6) Hypertension Qualifiers: Is this a current diagnosis for this admission?: Yes Plan: Start home meds. Adjust as needed.
[2019-03-25] MEDS: SEVELAMER HCL 800 MG TABLET PO SCH (18:48)
[2019-03-25 19:11] LABS: INTERNATIONAL RATION (INR) 1.27; PROTHROMBIN TIME 16.5 SEC (11.4-15.4)
[2019-03-25] MEDS ORDERED: MELATONIN 3 MG TABLET PO SCH (22:00)
[2019-03-25] MEDS ORDERED: DONEPEZIL HCL 5 MG TABLET PO SCH (22:00)
[2019-03-25] MEDS ORDERED: TRAZODONE HCL 50 MG TABLET PO SCH (22:00)
[2019-03-25] MEDS: TRAZODONE HCL 50 MG TABLET PO SCH (23:29)
[2019-03-26 06:32] LABS: ABSOLUTE EOSINOPHILS # (AUTO) 0.1 10^3/uL (0.0-0.6); ABSOLUTE LYMPHOCYTES (AUTO) 0.9 10^3/uL (0.5-4.7); ABSOLUTE MONOCYTES (AUTO) 0.5 10^3/uL (0.1-1.4); ABSOLUTE NEUT (AUTO) 4.3 10^3/uL (1.7-8.2); BASOPHILS % (AUTO) 0.8 % (0-2); HEMATOCRIT 30.6 % (36.0-47.0); HEMOGLOBIN 9.9 g/dL (12.0-15.5); LYMPHOCYTES % (AUTO) 15.6 % (13-45); MEAN CORPUSCULAR HEMOGLOBIN 28.8 pg (27.0-33.4); MEAN CORPUSCULAR HGB CONC 32.4 g/dL (32.0-36.0); MEAN CORPUSCULAR VOLUME 89 fl (80-97); MONOCYTES % (AUTO) 8.3 % (3-13); PLATELET COUNT 201 10^3/uL (150-450); RED BLOOD COUNT 3.43 10^6/uL (3.72-5.28); RED CELL DISTRIBUTION WIDTH 18.7 % (11.5-14.0); SEGMENTED NEUTROPHILS % (AUTO) 73.3 % (42-78); TOTAL CELLS COUNTED % (AUTO) 100 %; WHITE BLOOD COUNT 5.9 10^3/uL (4.0-10.5)
[2019-03-26 06:48] LABS: ANION GAP 8 (5-19); BLOOD UREA NITROGEN 28 mg/dL (7-20); CALCIUM 9.8 mg/dL (8.4-10.2); CARBON DIOXIDE 30 mmol/L (22-30); CHLORIDE 100 mmol/L (98-107); GLUCOSE 76 mg/dL (75-110); PHOSPHORUS 3.8 mg/dL (2.5-4.5); POTASSIUM 3.8 mmol/L (3.6-5.0); SODIUM 138.2 mmol/L (137-145)
[2019-03-26] MEDS: INSULIN LISPRO 100 UNIT/ML 3 ML VIAL SUBCUT SCH ×2 (07:51→11:58)
[2019-03-26] MEDS: DOCUSATE SODIUM 100 MG CAPSULE PO SCH ×2 (09:26→17:46)
[2019-03-26] MEDS: CLONIDINE HCL 0.1 MG TABLET PO SCH (09:26)
[2019-03-26] MEDS: INSULIN GLARGINE,HUM.REC.ANLOG 1,000 UNIT/10 ML VIAL SUBCUT SCH (09:27)
[2019-03-26] MEDS: FAMOTIDINE INJ/PF 20 MG/2 ML SDV IV SCH (09:27)
[2019-03-26] MEDS: APIXABAN 2.5 MG TABLET PO SCH (09:27)
[2019-03-26] MEDS: SEVELAMER HCL 800 MG TABLET PO SCH ×3 (09:27→17:32)
[2019-03-26] MEDS: DULOXETINE HCL 30 MG CAPSULE.DR PO SCH (09:27)
[2019-03-26] MEDS ORDERED: AMLODIPINE BESYLATE 2.5 MG TABLET PO SCH (10:00)
[2019-03-26] MEDS ORDERED: CINACALCET HCL 30 MG TABLET PO SCH (10:00)
[2019-03-26] MEDS ORDERED: CYANOCOBALAMIN/FA/PYRIDOXINE TABLET PO SCH (10:00)
[2019-03-26] MEDS ORDERED: SENNOSIDES/DOCUSATE 8.6-50 MG 1 EACH TABLET PO SCH (10:00)
[2019-03-26] MEDS ORDERED: CALCITRIOL 0.25 MCG CAPSULE PO SCH (10:00)
[2019-03-26] MEDS ORDERED: (PENDING PHARMACY ID) (Sennosides [Senna] 8.6 MG) PO SCH (10:00)
[2019-03-26] MEDS ORDERED: PROMETHAZINE HCL INJ 25 MG/1 ML VIAL IV PRN (12:30)
[2019-03-26] MEDS ORDERED: ONDANSETRON HCL INJ/PF 4 MG/2 ML SDV IV PRN (12:30)
--- NOTE | 2019-03-26 13:31 | RADIOLOGY REPORT (SQ) ---
EXAM DESCRIPTION: CHEST SINGLE VIEW COMPLETED DATE/TIME: 03/26/2019 1:17 pm REASON FOR STUDY: Post Thoracentesis COMPARISON: Chest films 03/14/2019, 05/01/2018, 04/25/2018, 04/15/2018 Prior thoracentesis 04/25/[address] chest 04/11/2018, 01/15/2017 EXAM PARAMETERS: NUMBER OF VIEWS: One view. TECHNIQUE: Single frontal radiographic view of the chest acquired. RADIATION DOSE: NA LIMITATIONS: None. FINDINGS: LUNGS AND PLEURA: Patient has chronic right recurrent pleural effusion. Chest film is imm ediately post right-sided thoracentesis of 700 mL of clear yellow fluid sent for testing. There is still a small to moderate residual right pleural effusion present in the major fissure and l ateral costophrenic sulcus. Persistent atelectasis in the right upper lobe perihilar region and medial right lung base. Left lung grossly clear. No gross left pleural effusion. No right or left pneumothorax MEDIASTINUM AND HILAR STRUCTURES: No masses. Contour normal. HEART AND VASCULAR STRUCTURES: Stable cardiomegaly BONES: Old left lower rib fractures HARDWARE: None in the chest. OTHER: No other significant finding. IMPRESSION: Immediate post right thoracentesis chest film after removal of 700 mL of fluid from the right chest. No pneumothorax. Small residual right effusion pain along the major fissure with right perihilar airspace disease likely atelectasis. TECHNICAL DOCUMENTATION: JOB ID: [id number] [employer]- All Rights Reserved Reading location - IP/workstation name: [email or web address]
[2019-03-26 14:17] LABS: FLUID APPEARANCE SLIGHTLY HAZY; FLUID COLOR STRAW; FLUID TYPE PLEURAL; FLUID VISCOSITY LIQUID
[2019-03-26 14:19] LABS: FLUID SOURCE LUNG
--- NOTE | 2019-03-26 14:49 | RADIOLOGY REPORT (SQ) ---
EXAM DESCRIPTION: U/S THORACENTESIS WITH IMAGING COMPLETED DATE/TIME: 03/26/2019 1:36 pm REASON FOR STUDY: pleural effusion COMPARISON: Prior thoracentesis 04/25/2018 LIMITATIONS: None. PROCEDURE: Procedure, risks, benefit, and alternative explained to patient who then gave written con sent. The posterior right chest wall was marked using ultrasound guidance. A time-out was called fo r correct marking verification. Chest prepped and draped using sterile technique. Local anesthesia a chieved using 6 ml of 1% lidocaine injection. A 6fr Safe-T- Centesis set was introduced into the rig ht pleural space. Fluid was aspirated. The catheter was removed and the entry site was covered with sterile bandage. No immediate complications noted. 700 mL of clear yellow fluid was removed, sent for testing as per the ordering physician Images acquired during the procedure were stored on PACS. FINDINGS: ENTRY SITE: Posterior right chest FLUID VOLUME: 700 mL FLUID ANALYSIS: Yes OTHER: Post procedure chest film demonstrated no pneumothorax IMPRESSION: SUCCESSFUL THORACENTESIS USING ULTRASOUND GUIDANCE. COMMENT: Patient medication list reviewed: Yes- Quality ID# [id number]:Eligible professional attests to doc umenting in the medical record they obtained, updated, or reviewed the patient's current medications. TECHNICAL DOCUMENTATION: JOB ID: [id number] [employer]- All Rights Reserved Reading location - IP/workstation name: [email or web address]
[2019-03-26] MEDS ORDERED: DEXTROSE 50%-WATER SYRINGE 25 GM/50 ML DOSE IV PRN (15:30)
[2019-03-26] MEDS ORDERED: DEXTROSE 50%-WATER SYRINGE 12.5 GM/25 ML DOSE IV PRN (15:30)
[2019-03-26] MEDS ORDERED: DEXTROSE 40% GEL 15 GM TUBE PO PRN (15:30)
[2019-03-26] MEDS ORDERED: DEXTROSE 40% GEL 15 GM TUBE X 2 PO PRN (15:30)
[2019-03-26] MEDS ORDERED: GLUCAGON,HUMAN RECOMB 1 MG INJ IM PRN (15:30)
--- NOTE | 2019-03-26 15:35 | RADIOLOGY REPORT (SQ) ---
EXAM DESCRIPTION: CHEST SINGLE VIEW COMPLETED DATE/TIME: 03/26/2019 3:21 pm REASON FOR STUDY: S/P THORACENTESIS 2 HR COMPARISON: Chest films 03/26/2019, 05/03/2018, 04/28/2018 EXAM PARAMETERS: NUMBER OF VIEWS: One view. TECHNIQUE: Single frontal radiographic view of the chest acquired. RADIATION DOSE: NA LIMITATIONS: None. FINDINGS: LUNGS AND PLEURA: 2 hours post right thoracentesis. Small amount of fluid persists in the right major fissure. No pneumothorax. Persistent partial collapse of the right upper lobe in the perihilar region and right lower lobe medi ally. Left lung grossly clear. No left significant pleural effusion or pneumothorax. MEDIASTINUM AND HILAR STRUCTURES: No masses. Contour normal. HEART AND VASCULAR STRUCTURES: Stable cardiomegaly BONES: No acute findings. HARDWARE: None in the chest. OTHER: No other significant finding. IMPRESSION: No pneumothorax 2 hours post right thoracentesis. Small residual right pleural effusion persists in the right major fissure. TECHNICAL DOCUMENTATION: JOB ID: [id number] [employer]- All Rights Reserved Reading location - IP/workstation name: [email or web address]
[2019-03-26 15:46] VITALS: BP 129/63
--- NOTE | 2019-03-26 15:49 | PDOC TRANSFER SUMMARY ---
General Admission Date/PCP: 03/24/19 18:13 CONNOR ALTAMIRANO MD Resuscitation Status: Do Not Resuscitate - Transfer Diagnosis (1) Recurrent right pleural effusion Is this a current diagnosis for this admission?: No (2) Atrial fibrillation Is this a current diagnosis for this admission?: No (3) Constipation Is this a current diagnosis for this admission?: No (4) Diabetes mellitus type II, controlled Is this a current diagnosis for this admission?: No (5) ESRD (end stage renal disease) Is this a current diagnosis for this admission?: Yes (6) Hypertension Is this a current diagnosis for this admission?: Yes (7) History of right MCA stroke Is this a current diagnosis for this admission?: Yes - Transfer Medications Home Medications: Acetaminophen [Tylenol 325 mg Tablet] 650 mg PO QHS 03/24/19 Albuterol Sulfate [Ventolin 0.083% Neb 2.5 mg/3 mL Ampul] 3 ml NEB Q4HP PRN 03/24/19 Amlodipine Besylate [Norvasc 2.5 mg Tablet] 2.5 mg PO DAILY 03/24/19 Apixaban [Eliquis 2.5 mg Tablet] 2.5 mg PO Q12 03/24/19 Carboxymethylcellulose Sodium [Refresh Tears] 1 drop OU Q6HP PRN 03/24/19 Cinacalcet HCl [Sensipar 30 mg Tablet] 30 mg PO DAILY 03/24/19 Clonidine HCl [Catapres 0.1 mg Tablet] 0.1 mg PO Q12 03/24/19 Cyanocobalamin/FA/Pyridoxine [Folbee Tablet] 1 tab PO DAILY 03/24/19 Docusate Sodium [Colace 100 mg Capsule] 100 mg PO BID 03/24/19 Donepezil HCl [Aricept] 10 mg PO QHS 03/24/19 Duloxetine HCl [Cymbalta 30 mg Capsule.dr] 30 mg PO DAILY 03/24/19 Insulin Aspart [Novolog Insulin (Aspart) 100 unit/mL] 0 units SQ .SLIDING SCALE 03/24/19 Insulin Glargine,Hum.rec.anlog [Basaglar Kwikpen U-100] 8 units SQ DAILY 03/24/19 Melatonin [Melatonin 3 mg Tablet] 6 mg PO QHS 03/24/19 Menthol [Icy Hot] 1 patch TOP DAILY 03/24/19 Menthol [Icy Hot] 1 patch TOP Q6HP PRN 03/24/19 Menthol/Zinc Oxide [Calmoseptine Ointment] 1 applic TOP DAILYP PRN 03/24/19 Nitroglycerin [Nitrostat 0.4 mg (1/150 Gr) Tabs 25/Bottle] 0.4 mg SL Q5MP PRN 03/24/19 Nystatin/Triamcin [Mycolog-II Cream 15 gm] 1 applic TOP DAILYP PRN 03/24/19 Promethazine HCl [Phenergan 25 mg Tablet] 25 mg PO Q6HP PRN 03/24/19 Sennosides [Senna] 8.6 mg PO DAILY 03/24/19 Sevelamer Carbonate [Renvela] 2,400 mg PO TID 03/24/19 Trazodone HCl [Desyrel 50 mg Tablet] 50 mg PO QHS 03/24/19 Transfer Medications: Current Medications Acetaminophen (Tylenol 325 Mg Tablet) 650 mg PO Q4HP PRN PRN Reason: FEVER >101 Stop: 04/23/19 17:49 Albuterol/Ipratropium (Duoneb 3 Ml Ampul) 3 ml NEB RTQ4HP PRN PRN Reason: SHORTNESS OF BREATH Stop: 04/23/19 17:49 Amlodipine Besylate (Norvasc 5 Mg Tablet) 5 mg PO DAILY [facility] Stop: 04/26/19 09:59 Apixaban (Eliquis 2.5 Mg Tablet) 2.5 mg PO Q12 KATHI Stop: 04/24/19 09:59 Last Admin: 03/26/19 09:27 Dose: Not Given Documented by: Artificial Tears (Refresh Plus 0.5% Oph Soln 0.4 Ml Droperette) 1 drop OU Q6HP PRN PRN Reason: DRY EYES Stop: 04/24/19 15:03 Cinacalcet (Sensipar 30 Mg Tablet) 30 mg PO DAILY KATHI Stop: 04/25/19 09:59 Last Admin: 03/26/19 09:25 Dose: 30 mg Documented by: Clonidine (Catapres 0.1 Mg Tablet) 0.1 mg PO Q12 KATHI Stop: 04/24/19 09:59 Last Admin: 03/26/19 09:26 Dose: 0.1 mg Documented by: Dextrose (Dextrose Inj 50% Syringe (25 Gm/50 Ml)) 12.5 gm IV PRN PRN; Protocol PRN Reason: FOR BG 50-69 IN ALERT PATIENT Stop: 04/25/19 15:29 Dextrose (Dextrose Inj 50% Syringe (25 Gm/50 Ml)) 25 gm IV PRN PRN; Protocol Stop: 04/25/19 15:29 Docusate Sodium (Colace 100 Mg Capsule) 100 mg PO BID [facility] Stop: 04/24/19 09:59 Last Admin: 03/26/19 09:26 Dose: 100 mg Documented by: Donepezil HCl (Aricept 5 Mg Tablet) 10 mg PO QHS [facility] Stop: 04/24/19 21:59 Last Admin: 03/25/19 23:29 Dose: 10 mg Documented by: Duloxetine HCl (Cymbalta 30 Mg Capsule.Dr) 30 mg PO DAILY [facility] Stop: 04/24/19 09:59 Last Admin: 03/26/19 09:27 Dose: 30 mg Documented by: Famotidine (Pepcid Inj/Pf 20 Mg/2 Ml Sdv) 20 mg IV DAILY [facility] Stop: 04/26/19 09:59 Folic Acid (Folbee Tablet) 1 tab PO DAILY [facility] Stop: 04/25/19 09:59 Last Admin: 03/26/19 09:25 Dose: 1 tab Documented by: Glucagon (Glucagen Inj 1 Mg Vial) 1 mg IM PRN PRN; Protocol PRN Reason: EVALUATE FOR BG < 70 Stop: 04/25/19 15:29 Glucose (Glutose 40% Gel 15 Gm Tube) 15 gm PO PRN PRN; Protocol PRN Reason: FOR BG 50-69 IN ALERT PATIENT Stop: 04/25/19 15:29 Glucose (Glutose 40% Gel 15 Gm Tube) 30 gm PO PRN PRN; Protocol PRN Reason: FOR BG < 50 IN ALERT PATIENT Stop: 04/25/19 15:29 Insulin Glargine (Lantus Insulin 100 Unit/1 Ml 10 Ml) 8 unit SUBCUT DAILY [facility] Stop: 04/24/19 12:59 Last Admin: 03/26/19 09:27 Dose: Not Given Documented by: Labetalol HCl (Normodyne Inj 20 Mg/4 Ml Syringe) 20 mg IV Q2HP PRN PRN Reason: Give For Sbp > [150] Stop: 04/23/19 17:57 Melatonin (Melatonin 3 Mg Tablet) 6 mg PO QHS [facility] Stop: 04/24/19 21:59 Last Admin: 03/25/19 23:29 Dose: 6 mg Documented by: Nitroglycerin (Nitrostat 0.4 Mg (1/150 Gr) Tabs 25/Bottle) 1 tab SL Q5MP PRN PRN Reason: CHEST PAIN Stop: 04/23/19 17:55 Ondansetron HCl (Zofran Inj/Pf 4 Mg/2 Ml Sdv) 4 mg IV Q4HP PRN PRN Reason: FOR NAUSEA/VOMITING Stop: 04/23/19 17:49 Promethazine HCl (Phenergan Inj 25 Mg/1 Ml Vial) 6.25 mg IV Q4HP PRN PRN Reason: UNRESOLVED NAUSEA/VOMITING Stop: 04/23/19 17:49 Senna/Docusate Sodium (Senna Plus Tablet) 1 each PO DAILY [facility] Stop: 04/25/19 09:59 Last Admin: 03/26/19 09:26 Dose: 1 each Documented by: Sevelamer HCl (Renagel 800 Mg Tablet) 2,400 mg PO TID [facility] Stop: 04/24/19 17:59 Last Admin: 03/26/19 13:51 Dose: Not Given Documented by: Temazepam (Restoril 7.5 Mg Capsule) 7.5 mg PO HSP PRN PRN Reason: SLEEP OR INSOMNIA Stop: 03/31/19 17:49 Trazodone HCl (Desyrel 50 Mg Tablet) 50 mg PO QHS [facility] Stop: 04/23/19 21:59 Last Admin: 03/25/19 23:29 Dose: 50 mg Documented by: - Allergies Allergies/Adverse Reactions: codeine [Codeine] Allergy (Severe, Verified 02/16/19 19:41) Anaphylaxis hydralazine [Hydralazine] Allergy (Severe, Verified 02/16/19 19:41) Swelling Soap [From Betadine] Allergy (Intermediate, Verified 02/16/19 19:41) Blisters povidone-iodine [From Betadine] Allergy (Unknown, Verified 02/16/19 19:41) Blisters soap [From Betadine] Allergy (Unknown, Verified 02/16/19 19:41) Blisters midazolam HCl [From Versed] Adverse Reaction (Intermediate, Verified 02/16/19 19:41) Projectile Vomiting Hospital Course Hospital Course: BRENT WATERS is a 83 year old female past medical history of diabetes, right MCA CVA, ESRD on HD MWF, hypertension, pulmonary embolism with IVC filter, left leg DVT on Coumadin currently on Eliquis, recurrent pleural effusion, constipation, depression, who is a DNR/DNI and a resident of longterm at the [facility]. She is presenting to ED complaining of SOB. Stating that about a week ago she was diagnosed with pneumonia and was placed on antibiotics which she finished yesterday, but symptoms of shortness of breath, productive cough not improved. Also complaining of dysuria and nausea but denies any chest pain, abdominal pain, vomiting, diarrhea. ED a chest x-ray showed right pleural effusion, CBC and CMP unchanged. (1) Recurrent right pleural effusion Recurrent. Likely due to end-stage renal disease. Status post diagnostic and therapeutic thoracentesis by radiology. 750 cc fluid removed. Initial fluid analysis negative for any sign of infection. LDH, protein and cultures pending at the time of discharge. We will follow-up. Eliquis was held patient of thoracentesis by radiology and was switched to heparin. Patient can be restarted on Eliquis upon discharge. Was admitted to telemetry with supplemental oxygen. (2) Atrial fibrillation Controlled. Continue beta-blockers. Used to be on Coumadin, currently on Eliquis. Eliquis held in anticipation of thoracentesis. Was switched to heparin. Restart Eliquis upon discharge. (3) Constipation Chronic. Restart home meds. (4) Diabetes mellitus type II, controlled Diabetic diet, sliding scale insulin, pre-meal insulin, long-acting insulin. Adjust dosage as needed. Hypoglycemia protocol. (5) ESRD (end stage renal disease) On HD MWF. Status post HD today. Started on renal diet. Monitored volume status. Monitored electrolytes. Nephrology consulted. (6) Hypertension Controlled. Restarted on home meds. Adjust as needed. (7) Hx of ischemic Rt MCA stroke Chronic Lt right upper and lower extremity weakness. Patient has some physical deconditioning on physical examination and needs resumption of PT OT at the Rehab that she is a residence of. She will also be started on high intensity statins and aspirin. Physical Exam Vital Signs: Temp Pulse Resp BP Pulse Ox 97.9 F 75 16 129/63 H 97 03/26/19 15:05 03/26/19 15:05 03/26/19 15:05 03/26/19 15:05 03/26/19 15:05 Intake & Output 03/25/19 03/26/19 03/27/19 06:59 06:59 06:59 Intake Total 0 560 440 Output Total 0 Balance 0 560 440 Weight 61.5 kg 56 kg General appearance: PRESENT: no acute distress, well-developed, well-nourished Head exam: PRESENT: atraumatic, normocephalic Respiratory exam: PRESENT: clear to auscultation korina. ABSENT: rales, rhonchi, wheezes Cardiovascular exam: PRESENT: RRR. ABSENT: diastolic murmur, rubs, systolic murmur GI/Abdominal exam: PRESENT: normal bowel sounds, soft. ABSENT: distended, guarding, mass, organolmegaly, rebound, tenderness Extremities exam: PRESENT: full ROM. ABSENT: calf tenderness, clubbing, pedal edema Neurological exam: PRESENT: alert, awake, oriented to person, oriented to place, oriented to time, oriented to situation, CN II-XII grossly intact, motor sensory deficit Results Laboratory Results: 03/26/19 05:34 03/26/19 05:34 03/26/19 03/26/19 03/26/19 05:34 05:34 12:55 WBC 5.9 RBC 3.43 L Hgb 9.9 L Hct 30.6 L MCV 89 MCH 28.8 MCHC 32.4 RDW 18.7 H Plt Count 201 Seg Neutrophils % 73.3 Lymphocytes % 15.6 Monocytes % 8.3 Eosinophils % 2.0 Basophils % 0.8 Absolute Neutrophils 4.3 Absolute Lymphocytes 0.9 Absolute Monocytes 0.5 Absolute Eosinophils 0.1 Absolute Basophils 0.0 Sodium 138.2 Potassium 3.8 Chloride 100 Carbon Dioxide 30 Anion Gap 8 BUN 28 H Creatinine 2.98 H Est GFR ( Amer) 18 L Est GFR (Non-Af Amer) 15 L Glucose 76 Calcium 9.8 Phosphorus 3.8 Magnesium 2.1 Fluid Type PLEURAL Fluid Source LUNG Fluid Color STRAW Fluid Appearance SLIGHTLY HAZY Fluid Viscosity LIQUID Fluid WBC 22 Fluid RBC 773 Impressions: Chest X-Ray 03/26/19 15:15 IMPRESSION: No pneumothorax 2 hours post right thoracentesis. Small residual right pleural effusion persists in the right major fissure. Thoracentesis Ultrasound 03/26/19 18:00 IMPRESSION: SUCCESSFUL THORACENTESIS USING ULTRASOUND GUIDANCE.
[2019-03-26 19:04] LABS: PROTHROMBIN TIME 15.8 SEC (11.4-15.4)
[2019-03-27] MEDS ORDERED: AMLODIPINE BESYLATE 5 MG TABLET PO SCH (10:00)
[2019-03-27] MEDS ORDERED: FAMOTIDINE INJ/PF 20 MG/2 ML SDV IV SCH (10:00)
[2019-03-27] MEDS ORDERED: AMLODIPINE BESYLATE 2.5 MG TABLET PO SCH (10:00)
== END 2019-03-26 20:30 ==
LOC: ER 15:01 → INTOOBSV 18:13 → EH 18:13 → 3W 19:10
PROVIDERS: ADMIT Internal Medicine; ATTEND Internal Medicine
PROC: 0W993ZZ Drainage of Right Pleural Cavity, Percutaneous Approach (ICD-10-PCS; principal; 2019-03-26)
DX: J90 Pleural effusion, not elsewhere classified (principal); I12.0 Hypertensive chronic kidney disease with stage 5 chronic kidney disease or end stage renal disease; E11.22 Type 2 diabetes mellitus with diabetic chronic kidney disease; N18.6 End stage renal disease; Z99.2 Dependence on renal dialysis; F32.9 Major depressive disorder, single episode, unspecified; K59.00 Constipation, unspecified; Z66 Do not resuscitate; I25.10 Atherosclerotic heart disease of native coronary artery without angina pectoris; I48.2 Chronic atrial fibrillation; E78.5 Hyperlipidemia, unspecified; Z86.711 Personal history of pulmonary embolism; K21.9 Gastro-esophageal reflux disease without esophagitis; M19.90 Unspecified osteoarthritis, unspecified site; M79.7 Fibromyalgia; F43.10 Post-traumatic stress disorder, unspecified; Z95.5 Presence of coronary angioplasty implant and graft; Z90.710 Acquired absence of both cervix and uterus; Z91.09 Other allergy status, other than to drugs and biological substances; Z86.73 Personal history of transient ischemic attack (TIA), and cerebral infarction without residual deficits
CPT/HCPCS: 32555; 36415; 71045; 80048; 80053; 82150; 82945; 82962; 83615; 83735; 84100; 84155; 84157; 85025; 85610; 85730; 87070; 87075; 87205; 89050; 93005; 93010; 99285; G0378; J1644; J1815; J3490; S0028

== ENCOUNTER 2019-05-24 16:22 | Emergency (ER) | payer MEDICARE, MEDICAID ==
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
[2019-05-24 19:36] VITALS: BP 117/71
--- NOTE | 2019-05-25 08:42 | XCELERA REPORT ---
[address] [address] Upper Extremity Venous Evaluation Name: JORGE LUIS WATERS Age: 83 yrs Gender: Female : 1935 Patient Status: Emergency Patient Location: ER Study Date: 05/24/2019 06:12 PM Procedure: Unilateral duplex scan of the left upper extremity veins was performed, including responses to compression and other maneuvers. Reason For Study: left arm edema Ordering Physician: MICAH KRAMER Performed By: Christina Alberts Left Sided Venous Evaluation A patent Brachia Cephalic AV fistula is seen with a stent in place, Stent just above rhe antecubital fossa. Normal vessel filling wall to wall, compression and augmentation as well as Colour flow down to the infrageniculate veins. Interpretation Summary Left upper extremity veins show no thrombosis or obstruction. The presence of a patent, functioning AV fistula with stent in it is appreciated. : MICAH KRAMER > Chris Valdes
== END 2019-05-24 19:37 | disposition home or self-care (01) ==
LOC: ER 16:22
DX: M79.602 Pain in left arm (principal); M79.89 Other specified soft tissue disorders; Z79.01 Long term (current) use of anticoagulants; Z86.73 Personal history of transient ischemic attack (TIA), and cerebral infarction without residual deficits; I12.0 Hypertensive chronic kidney disease with stage 5 chronic kidney disease or end stage renal disease; E11.22 Type 2 diabetes mellitus with diabetic chronic kidney disease; N18.6 End stage renal disease; Z99.2 Dependence on renal dialysis; Z79.4 Long term (current) use of insulin; J44.9 Chronic obstructive pulmonary disease, unspecified; I25.2 Old myocardial infarction
CPT/HCPCS: 93971; 99284

== ENCOUNTER 2019-06-23 09:57 | Emergency (ER) | payer MEDICARE, MEDICAID ==
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
[2019-06-23 13:03] VITALS: BP 146/74
== END 2019-06-23 13:05 | disposition home or self-care (01) ==
LOC: ER 09:57
DX: T82.838A Hemorrhage due to vascular prosthetic devices, implants and grafts, initial encounter (principal); Y84.1 Kidney dialysis as the cause of abnormal reaction of the patient, or of later complication, without mention of misadventure at the time of the procedure; I12.0 Hypertensive chronic kidney disease with stage 5 chronic kidney disease or end stage renal disease; N18.6 End stage renal disease; E11.22 Type 2 diabetes mellitus with diabetic chronic kidney disease; Z99.2 Dependence on renal dialysis; I25.10 Atherosclerotic heart disease of native coronary artery without angina pectoris; I48.91 Unspecified atrial fibrillation; Z79.02 Long term (current) use of antithrombotics/antiplatelets; Z95.5 Presence of coronary angioplasty implant and graft; Z87.892 Personal history of anaphylaxis; Z88.5 Allergy status to narcotic agent; Z88.8 Allergy status to other drugs, medicaments and biological substances; Z88.3 Allergy status to other anti-infective agents
CPT/HCPCS: 99284

== ENCOUNTER → 2019-07-14 | Outpatient (CLI) | payer MEDICARE, MEDICAID ==
--- NOTE | 2019-07-14 14:18 | RADIOLOGY REPORT (SQ) ---
EXAM DESCRIPTION: CT CHEST WITHOUT COMPLETED DATE/TIME: 07/14/2019 1:16 pm REASON FOR STUDY: R91.8 OTHER NONSPECIFIC ABNORMAL FINDING OF LUNG FIELD R91.8 OTHER NONSPECIFIC AB NORMAL FINDING OF LUNG FIELD COMPARISON: 04/11/2018 TECHNIQUE: CT scan performed of the chest without intravenous contrast. Images reviewed with lung, soft tissue and bone windows. Reconstructed coronal and sagittal MPR images reviewed. All images st ored on PACS. All CT scanners at this facility use dose modulation, iterative reconstruction, and/or weight based d osing when appropriate to reduce radiation dose to as low as reasonably achievable (ALARA). [facility]: Dose Right [facility]: CareDose [facility]: Dose Right [facility]: Teradose 4D [facility]: [employer] RADIATION DOSE: CT Rad equipment meets quality standard of care and radiation dose reduction techniq ues were employed. CTDIvol: 11.1 mGy. DLP: 403 mGy-cm. mGy. LIMITATIONS: No technical limitations. FINDINGS: LUNGS AND PLEURA: Large right pleural effusion with compressive atelectasis in the right l ower lobe. Minimal left pleural effusion. No pulmonary mass is seen. HILAR AND MEDIASTINAL STRUCTURES: Mediastinal adenopathy. HEART AND VASCULAR STRUCTURES: Cardiomegaly. No aneurysm. No pericardial effusion. UPPER ABDOMEN: Left renal atrophy. Atherosclerosis. THYROID AND OTHER SOFT TISSUES: No masses. No adenopathy. BONES: No significant finding. HARDWARE: None in the chest. OTHER: No other significant findings. IMPRESSION: Large right pleural effusion with associated atelectasis. Minimal left pleural effusion . Mild mediastinal adenopathy. Cardiomegaly. Left renal atrophy. Atherosclerosis. TECHNICAL DOCUMENTATION: JOB ID: [id number] Quality ID # [id number]: Final reports with documentation of one or more dose reduction techniques (e.g., Au tomated exposure control, adjustment of the mA and/or kV according to patient size, use of iterative reconstruction technique) 2010 [employer]- All Rights Reserved Reading location - IP/workstation name: [email or web address]
== END ==
LOC: WI 13:02
PROVIDERS: ATTEND Family Medicine
DX: R91.8 Other nonspecific abnormal finding of lung field (principal); J90 Pleural effusion, not elsewhere classified; J98.11 Atelectasis
CPT/HCPCS: 71250

== ENCOUNTER 2019-07-30 14:31 | Emergency (ER) | payer MEDICARE, MEDICAID ==
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
--- NOTE | 2019-07-30 17:44 | RADIOLOGY REPORT (SQ) ---
EXAM DESCRIPTION: HIP BILATERAL COMPLETED DATE/TIME: 07/30/2019 4:35 pm REASON FOR STUDY: Fell from wheelchair c/o bilat hip pain COMPARISON: None. NUMBER OF VIEWS: Two views. TECHNIQUE: AP pelvis and additional frog-leg view of the right and left hip. LIMITATIONS: None. FINDINGS: MINERALIZATION: Osteopenia. Right HIP: No fracture or dislocation. No worrisome bone lesions. Left HIP: No fracture or dislocation. No worrisome bone lesions. PUBIS AND ISCHIUM: No fracture. PELVIS: No fracture. SACRUM: No fracture or dislocation. No worrisome bone lesions. LOWER LUMBAR SPINE: No fracture or dislocation. No worrisome bone lesions. No significant disc disea se. SOFT TISSUES: No findings. OTHER: A neurostimulator is present on the right, partially overlying the femoral head. IMPRESSION: Osteopenia. No acute finding is seen in either hip. TECHNICAL DOCUMENTATION: JOB ID: [id number] [employer]- All Rights Reserved Reading location - IP/workstation name: [email or web address]
[2019-07-30 19:34] VITALS: BP 100/49
== END 2019-07-30 20:42 ==
LOC: ER 14:31
DX: S70.00XA Contusion of unspecified hip, initial encounter (principal); W05.0XXA Fall from non-moving wheelchair, initial encounter; Y93.89 Activity, other specified; Y92.129 Unspecified place in nursing home as the place of occurrence of the external cause; M85.88 Other specified disorders of bone density and structure, other site; M54.9 Dorsalgia, unspecified; R06.02 Shortness of breath; M79.89 Other specified soft tissue disorders; I25.10 Atherosclerotic heart disease of native coronary artery without angina pectoris; I12.0 Hypertensive chronic kidney disease with stage 5 chronic kidney disease or end stage renal disease; N18.6 End stage renal disease; Z99.2 Dependence on renal dialysis; I69.354 Hemiplegia and hemiparesis following cerebral infarction affecting left non-dominant side; Z87.892 Personal history of anaphylaxis; Z88.5 Allergy status to narcotic agent; Z88.8 Allergy status to other drugs, medicaments and biological substances; Z88.3 Allergy status to other anti-infective agents
CPT/HCPCS: 73522